=== PATIENT | male | born 1980 | race Caucasian/White ===

== ENCOUNTER 2020-04-18 08:07 | Outpatient (REF) | payer OTHER, SELFPAY ==
[2020-04-18 08:50] LABS: MANUAL DIFF FLAG NO
[2020-04-18 08:57] LABS: Basophils Absolute Auto 0.1 X10*3/uL (0.0-0.2); Basophils Percent Auto 0.6 % (0-2); Eosinophils Absolute Auto 0.4 X10*3/uL (0.0-0.4); Hematocrit 45.7 % (42-52); Hemoglobin 15.8 g/dl (14.0-18.0); Imm Gran Abs Auto 0.04 X10*3/uL (0.00-0.03); Imm Gran Pct Auto 0.5 % (0.0-0.4); Lymphocytes Absolute Auto 3.4 X10*3/uL (1.2-4.9); Lymphocytes Percent Auto 40.9 % (20-40); Mean Corpuscular HGB Conc 34.6 g/dl (31.0-36.0); Mean Corpuscular Hemoglobin 29.6 pg (27.0-33.0); Mean Corpuscular Volume 85.6 fL (80-98); Mean Platelet Volume 8.5 fL (9.4-12.4); Monocytes Absolute Auto 0.8 X10*3/uL (0.1-1.2); Monocytes Percent Auto 9.5 % (2-11); Neutrophils Absolute Auto 3.6 X10*3/uL (2.0-8.3); Neutrophils Percent Auto 43.5 % (45-73); Platelet Count 225 X10*3/uL (160-400); Red Blood Count 5.34 X10*6/uL (4.60-5.80); Red Cell Distribution Width 12.6 % (11.0-16.0); White Blood Count 8.2 X10*3/uL (4.8-10.8)
[2020-04-18 09:05] LABS: Estimated Average Glucose 100 mg/dL; Hemoglobin A1c % 5.1 %
[2020-04-18 09:23] LABS: Alanine Aminotransferase 61 U/L (0-40); Albumin Level 4.5 g/dL (3.5-5.0); Alkaline Phosphatase 53 U/L (39-117); Anion Gap 12 (12-20); Aspartate Amino Transferase 29 U/L (5-37); Bilirubin Total 0.4 mg/dL (0.0-1.0); Blood Urea Nitrogen 11 mg/dL (9-16); Carbon Dioxide 27 mmol/L (22-29); Chloride 104 mmol/L (96-108); Cholesterol 169 mg/dL; Estimated Glomerular Filt Rate > 60; Glucose Random 103 mg/dL (60-115); HDL Cholesterol 40 mg/dL; LDL Cholesterol Calculated 110 mg/dl; Potassium 4.1 mmol/l (3.3-5.1); Sodium 139 mmol/L (135-145); Total Protein 7.2 g/dL (6.5-8.0); Triglycerides 95 mg/dL
[2020-04-18 09:36] LABS: Free T4 (Free Thyroxine) 0.77 ng/dL (0.71-1.85)
[2020-04-18 10:21] LABS: Vitamin B12 414 pg/mL (200-900)
[2020-04-19 05:03] LABS: SARS COV2 IgG Negative (Negative)
== END 2020-04-18 08:08 | disposition home or self-care (01) ==
LOC: HO.LAB 08:07
PROVIDERS: PCP Internal Medicine; Visit Provider Internal Medicine
DX: Z20.828 Contact with and (suspected) exposure to other viral communicable diseases (principal); E66.9 Obesity, unspecified; E78.00 Pure hypercholesterolemia, unspecified
CPT/HCPCS: 36415; 80053; 80061; 82607; 82746; 83036; 84439; 84443; 85025; 86769

== ENCOUNTER 2020-11-22 10:37 | Outpatient (REF) | payer OTHER, SELFPAY ==
--- NOTE | ~2020-11-22 | XR_ITS ---
EXAMINATION: BILATERAL HAND. CLINICAL INFORMATION: Pain. COMPARISON: None TECHNIQUE: 3 views each hand. FINDINGS: Right hand: There is loss of PIP in the AP joint space. The MCP joint space is normal. No visible acute fracture, dislocation or subluxation seen. No bony erosive changes. The soft tissues are normal. Left hand: There is loss of PIP in the epidural space without bony erosive changes or spurring. The MCP joint space is maintained. No visible acute fracture, dislocation or lytic process seen. XR/XR hand LT 2V IMPRESSION: Early mild degenerative changes PIP and DIP joints.
--- NOTE | ~2020-11-22 | XR_ITS ---
EXAMINATION: XR ELBOW, RIGHT XR ELBOW, LEFT CLINICAL INFORMATION: M25.529 - Pain in unspecified elbow COMPARISON: None TECHNIQUE: Each elbow is imaged in 3 views. There are total of 6 views. FINDINGS: Both elbows show normal bony mineralization. There is no fracture, dislocation, destructive process, or elbow capsular effusion. No joint narrowing or erosive change or chondrocalcinosis. There is no olecranon spurring or definite epicondylar spurring. XR/XR elbow RT 2V IMPRESSION: Normal study.
--- NOTE | ~2020-11-22 | XR_ITS ---
EXAMINATION: XR ELBOW, RIGHT XR ELBOW, LEFT CLINICAL INFORMATION: M25.529 - Pain in unspecified elbow COMPARISON: None TECHNIQUE: Each elbow is imaged in 3 views. There are total of 6 views. FINDINGS: Both elbows show normal bony mineralization. There is no fracture, dislocation, destructive process, or elbow capsular effusion. No joint narrowing or erosive change or chondrocalcinosis. There is no olecranon spurring or definite epicondylar spurring. XR/XR elbow LT 2V IMPRESSION: Normal study.
--- NOTE | ~2020-11-22 | XR_ITS ---
EXAMINATION: BILATERAL HAND. CLINICAL INFORMATION: Pain. COMPARISON: None TECHNIQUE: 3 views each hand. FINDINGS: Right hand: There is loss of PIP in the AP joint space. The MCP joint space is normal. No visible acute fracture, dislocation or subluxation seen. No bony erosive changes. The soft tissues are normal. Left hand: There is loss of PIP in the epidural space without bony erosive changes or spurring. The MCP joint space is maintained. No visible acute fracture, dislocation or lytic process seen. XR/XR hand RT 2V IMPRESSION: Early mild degenerative changes PIP and DIP joints.
[2020-11-22 11:43] LABS: MANUAL DIFF FLAG NO
[2020-11-22 11:49] LABS: Basophils Percent Auto 0.7 % (0-2); Eosinophils Absolute Auto 0.4 X10*3/uL (0.0-0.4); Eosinophils Percent Auto 6.6 % (0-4); Hematocrit 46.1 % (42-52); Hemoglobin 15.7 g/dl (14.0-18.0); Imm Gran Abs Auto 0.02 X10*3/uL (0.00-0.03); Imm Gran Pct Auto 0.3 % (0.0-0.4); Lymphocytes Absolute Auto 2.4 X10*3/uL (1.2-4.9); Lymphocytes Percent Auto 39.4 % (20-40); Mean Corpuscular HGB Conc 34.1 g/dl (31.0-36.0); Mean Corpuscular Hemoglobin 28.6 pg (27.0-33.0); Mean Platelet Volume 8.9 fL (9.4-12.4); Monocytes Absolute Auto 0.6 X10*3/uL (0.1-1.2); Neutrophils Absolute Auto 2.7 X10*3/uL (2.0-8.3); Platelet Count 234 X10*3/uL (160-400); Red Blood Count 5.49 X10*6/uL (4.60-5.80); Red Cell Distribution Width 12.7 % (11.0-16.0); White Blood Count 6.1 X10*3/uL (4.8-10.8)
[2020-11-22 11:59] LABS: Estimated Average Glucose 103 mg/dL; Hemoglobin A1c % 5.2 %
[2020-11-22 12:22] LABS: Alanine Aminotransferase 93 U/L (0-40); Albumin Level 4.6 g/dL (3.5-5.0); Alkaline Phosphatase 56 U/L (39-117); Anion Gap 13 (12-20); Aspartate Amino Transferase 44 U/L (5-37); Bilirubin Total 0.4 mg/dL (0.0-1.0); Blood Urea Nitrogen 11 mg/dL (9-16); Calcium 9.5 mg/dL (8.4-10.2); Carbon Dioxide 27 mmol/L (22-29); Chloride 104 mmol/L (96-108); Estimated Glomerular Filt Rate > 60; Glucose Random 90 mg/dL (60-115); Potassium 4.5 mmol/L (3.3-5.1); Sodium 139 mmol/L (135-145); Total Protein 7.4 g/dL (6.5-8.0)
[2020-11-22 12:28] LABS: Erythrocyte Sedimentation Rate 2 MM/HR (0-15)
[2020-11-25 14:21] LABS: Anti Nuclear Antibody Screen NEGATIVE (NEGATIVE)
== END 2020-11-22 10:38 | disposition home or self-care (01) ==
LOC: HO.LAB 10:37
PROVIDERS: PCP Internal Medicine; Visit Provider Internal Medicine
DX: M25.522 Pain in left elbow (principal); M25.521 Pain in right elbow; M79.642 Pain in left hand; M79.641 Pain in right hand; R79.89 Other specified abnormal findings of blood chemistry
CPT/HCPCS: 36415; 73070; 73120; 80053; 83036; 85025; 85652; 86038; 86039

== ENCOUNTER 2022-04-08 10:47 | Outpatient (REF) | payer OTHER, SELFPAY ==
[2022-04-08 11:40] LABS: Hematocrit 41.8 % (42.0-52.0); Hemoglobin 14.4 g/dl (14.0-18.0); Mean Corpuscular HGB Conc 34.4 g/dl (31.0-36.0); Mean Corpuscular Hemoglobin 29.4 pg (27.0-33.0); Mean Corpuscular Volume 85.3 fL (80.0-98.0); Mean Platelet Volume 8.9 fL (9.4-12.4); Platelet Count 226 X10*3/uL (160-400); Red Cell Distribution Width 12.7 % (11.0-16.0)
[2022-04-08 13:54] LABS: Creatinine Urine 169.43 mg/dL; Microalbum/Creatinine Ratio Ur 13.5 ug/mg cr
[2022-04-08 14:14] LABS: Estimated Average Glucose 105 mg/dL; Hemoglobin A1C 151.1252 umol/L; Hemoglobin A1c % 5.3 %
[2022-04-08 14:49] LABS: Alanine Aminotransferase 61 U/L (0-40); Albumin Level 4.3 g/dL (3.5-5.0); Alkaline Phosphatase 54 U/L (39-117); Anion Gap 11 (12-20); Aspartate Amino Transferase 35 U/L (5-37); Bilirubin Total 0.5 mg/dL (0.0-1.0); Blood Urea Nitrogen 15 mg/dL (9-16); Calcium 9.3 mg/dL (8.4-10.2); Carbon Dioxide 30 mmol/L (22-29); Chloride 107 mmol/L (96-108); Cholesterol 151 mg/dL; Estimated Glomerular Filt Rate > 60; Glucose Fasting 78 mg/dL (60-99); HDL Cholesterol 34 mg/dL; LDL Cholesterol Calculated 92 mg/dl; Potassium 4.3 mmol/L (3.3-5.1); Sodium 144 mmol/L (135-145); TSH reflex Free T4 0.84 uIU/mL (0.32-4.0); Total Protein 6.6 g/dL (6.5-8.0); Triglycerides 129 mg/dL
== END 2022-04-08 10:48 | disposition home or self-care (01) ==
LOC: HO.LAB 10:47
PROVIDERS: PCP Physician Assistant; Visit Provider Physician Assistant
DX: E66.9 Obesity, unspecified (principal); I10 Essential (primary) hypertension; R73.02 Impaired glucose tolerance (oral)
CPT/HCPCS: 36415; 80053; 80061; 82043; 83036; 84443; 85027

== ENCOUNTER → 2022-09-18 08:59 | Outpatient (BNVA) | payer OTHER, SELFPAY | PROVIDERS: PCP Physician Assistant; Visit Provider Internal Medicine ==

== ENCOUNTER → 2022-10-01 09:04 | Outpatient (REF) | payer OTHER, SELFPAY | LOC: HO.SL 09:04 | PROVIDERS: Visit Provider Internal Medicine | DX: G47.33 Obstructive sleep apnea (adult) (pediatric) (principal); E66.01 Morbid (severe) obesity due to excess calories; R40.0 Somnolence | CPT/HCPCS: 95806 ==

== ENCOUNTER 2022-10-06 08:29 | Outpatient (REF) | payer OTHER, SELFPAY ==
--- NOTE | 2022-10-06 09:25 | PFT_ITS ---
INDICATION: Asthma. SPIROMETRY: FEV1 to FVC of 72% with an FEV1 of 4.08 L, which is 101% predicted. FVC of 5.63 L, which is 110% predicted. No significant response to bronchodilators noted. Maximum voluntary ventilation 102% predicted. LUNG VOLUMES: 103% predicted. DIFFUSION CAPACITY: DLCO 122% predicted. FLOW VOLUME LOOP: There is some slight concavity to the expiratory limb minimally noted. COMPARISON: None. INTERPRETATION: No definitive obstructive nor restrictive ventilatory defects noted. No significant response to bronchodilator is noted. However, based on his age and his load, FEV1 to FVC and his expiratory limb demonstrates some slight concavity. There is a slight obstructive physiology present. Lung volumes are within normal limits. His diffusion capacity is high normal. Need to consider exogenous carbon monoxide exposures. Clinical correlation warranted. Dave Phillips MD MR/MODL / [id number]
== END 2022-10-06 08:30 | disposition home or self-care (01) ==
LOC: HO.RESP 08:29
PROVIDERS: PCP Physician Assistant; Visit Provider Internal Medicine
DX: E66.01 Morbid (severe) obesity due to excess calories (principal); J45.909 Unspecified asthma, uncomplicated
CPT/HCPCS: 94060; 94727; 94729

== ENCOUNTER 2022-11-26 09:18 | Outpatient (AMB) | payer OTHER, SELFPAY ==
--- NOTE | 2022-11-26 09:19 | MHC.OFFVIS ---
Intake Vital Signs 11/26/22 09:20 Height 5 ft 9 in Weight 281 lb 1.43 oz BMI 41.5 BP 142/78 H Blood Pressure Location Rt brachial Position Sitting Pulse 75 Pulse Source Pulse Oximeter Pulse Oximetry (%) 98 Oxygen Delivery Method Room Air Intake Visit Reasons: KRYSTIAN/Asthma Intake Note: Pt presents today to discuss his at home sleep study but overall is doing well. Allergies levofloxacin [From LEVAQUIN] Allergy (Mild, Verified 11/26/22 09:43) HIVES egg Allergy (Unknown, Verified 11/26/22 09:43) Unknown seafood Allergy (Unknown, Verified 11/26/22 09:43) Unknown amlodipine Adverse Reaction (Intermediate, Verified 11/26/22 09:43) ineffective Medication List - Last Reconciled 11/26/22 by Rj Gentile MD albuterol sulfate 90 mcg/actuation (Ventolin HFA) 2 puffs inhalation Q4-6H PRN 30 days albuterol sulfate 2.5 mg (3 mL) continuous nebulization Q4-6H PRN escitalopram oxalate (Lexapro) 5 mg PO DAILY fluticasone propion-salmeterol 250-50 mcg/dose (Wixela Inhub) 1 inh inhalation BID 30 days fluticasone propionate 50 mcg/actuation 2 sprays intranasal DAILY ibuprofen 800 mg PO TID lisinopril 30 mg PO DAILY 90 days montelukast 10 mg PO DAILY Do you need a note to return to daycare/school/sports/work: No HPI KRYSTIAN/Asthma HPI Details 43 years old gentleman morbidly obese, with longstanding history of sleep apnea/snoring, and bronchial asthma, comes for follow-up. Asthma doing very well and he hardly needs to use the albuterol maybe once or twice a month. Continues to use maintenance regimen, but using Wixela only once a day. He states that if he goes of this completely he starts having increased wheezing and shortness of breath. He thinks taking montelukast 10 mg daily has helped. As far as sleep is concerned he still continue to use his old CPAP device. But he is not. Sure if it is helping at all He states that on some days when he does not use he wakes up with headache. He has no control on his diet, he does walk 1-2 miles daily, but has not been able to lose any weight. [facility] Medical History Anemia Anxiety Asthma Desensitization to allergy shot Fatty liver Morbid obesity Obesity (BMI 30-39.9) Obstructive sleep apnea Somnolence, daytime Surgical History History of vasectomy Family History Father Hypertension Hyperlipidemia Mother No problems noted. Maternal Grandmother Myocardial infarction Maternal Grandfather Testicular cancer Paternal Grandmother Pancreatic cancer Paternal Grandfather Colon cancer Paternal Aunt Colon cancer Brother Bipolar disorder Other Mental health disorder Social History Housing: House Alcohol intake: former Year quit: 2021 Patient Tobacco Use Status: Never used Tobacco Years Smoked: teenage stopped e-Cigarette/Vaping Use: Never Used Second Hand Smoke Exposure: No service: No Current occupational status: employed Cognitive needs: No Hearing needs: No Vision needs: No Review of Systems Const All systems reviewed & are unremarkable except as noted in HPI and below Reports headache(s) (In AMs) Eyes Reports no additional complaints ENT Reports no additional complaints and Reports headache(s) (In AMs) Card Denies chest pain, Denies irregular heart rhythm and Denies leg edema Resp Reports as per HPI GI Denies no additional complaints Reports no additional complaints Musc Reports no additional complaints Neuro Reports headache(s) (In AMs) Psych Reports depression (Mild controlled) Physical Exam Vital Signs: Last Vital Signs Pulse 75 11/26/22 09:20 BP 142/78 H 11/26/22 09:20 Pulse Ox 98 11/26/22 09:20 Oxygen Delivery Method Room Air 11/26/22 09:20 BMI result Body Mass Index 41.5 This patient is grossly obese with a round face. Const General: healthy appearing (Except for being overweight), comfortable, no acute distress, alert and awake Orientation/consciousness: patient oriented x3 HEENT Head: Yes normal to inspection General nose exam: No nasal polyps present and No nasal discharge present Face and sinus: Yes sinuses nontender Mouth: oropharynx abnormals (Narrow and crowded, Mallampati class 3) Throat: Yes posterior oropharynx normal Eyes General: appearance normal, both eyes and all related structures Neck Neck: Yes normal visual inspection, Yes no lymphadenopathy, Yes trachea midline, Yes no JVD and Yes other (Neck circumference 18 in) Thyroid: Thyroid normal Chest Chest palpation & inspection: normal inspection of the chest, normal palpation of entire chest wall and no tenderness Resp Effort & Inspection: normal respiratory effort Auscultation: clear to auscultation bilaterally, no crackles, no rhonchi and no wheezes Cardio Palpation: normal PMI Rate: regular rate Rhythm: regular rhythm Heart sounds: no gallops and no murmurs Peripheral pulses: Peripheral pulses 2+ throughout GI Palpation (GI): Soft to palpation, nontender, No hepatosplenomegaly present, no masses and Other GI palpation findings present (Abdomen is moderately obese and protuberant) Auscultation: normal bowel sounds Back/Spine/Pelvis Thoracic/Lumbar Spine: thoracic and lumbar spine normal to inspection Skin General skin exam: no rashes or lesions noted Neuro General: patient oriented x3 and no focal motor deficits Cranial nerves: Yes CN's II-XII intact bilaterally Extrem General: Yes normal to inspection, Yes no clubbing, cyanosis or edema and Yes no calf tenderness Psych Appearance: grossly normal and well kempt Speech and movement: Normal speech and movement present Results Reviewed Results Reviewed: PULMONARY FUNCTION TEST BAS 18% OF THE SLEEP TIME ICALLY NORMAL AND THERE WAS NO SIGNIFICANT OBSTRUCTIVE OR RESTRICTIVE PATTERN. HOME-BASED SLEEP STUDY ON 10/01/2022 SHOWS ONLY MILD DEGREE OF OBSTRUCTIVE SLEEP APNEA TOTAL SLEEP TIME AHI ONLY 5.3, IN SUPINE POSITION 12.8, SNORING IS FOR Assessment & Plan Assessment & Plan (1) Asthma: Comment: He has longstanding history of bronchial asthma, Has had allergy shots in the past. Bronchial asthma is mild with seasonal flare ups. RESULTS OF PULMONARY FUNCTION TEST ARE EXPLAINED TO HIM. TX: Montelukast 10 mg daily to continue. Wixela 250-50 use only ones inhalation daily . When symptoms are controlled may try to go off that. Albuterol HFA 2 puffs Q 4-6 hours only p.r.n.. Code(s): J45.909 - Unspecified asthma, uncomplicated Qualifiers: Asthma severity: mild Asthma persistence: intermittent Asthma complication type: uncomplicated Qualified Code(s): J45.20 - Mild intermittent asthma, uncomplicated (2) Obstructive sleep apnea: Comment: As per sleep study his obstructive sleep apnea at present is only very mild, especially in supine position. With these numbers, I think he should try his best to treat with conservative measures. Explained to him in detail. A: I STRESS THAT HE MUST LOSE WEIGHT AT LEAST 10% OF HIS CURRENT WEIGHT, WHICH IS ABOUT 28-30 LB. HE TELLS ME THAT HE IS JOINING A WEIGHT MANAGEMENT PROGRAM. B: POSITION THERAPY, AVOID SLEEPING IN SUPINE POSITION, MAY USE A PILLOW ARE A WEDGE IN THE MIDDLE OF THE BED. I EXPLAINED TO HIM THAT HE REALLY CAN DO WITHOUT USING THE CPAP MACHINE AT THIS TIME. WILL RECHECK HIM IN 3 MONTHS. IF HE REMAINS SYMPTOMATIC , IN SPITE OF LOSING WEIGHT, THEN WE CAN DEFINITELY CONSIDER GOING BACK TO CPAP THERAPY. Code(s): G47.33 - Obstructive sleep apnea (adult) (pediatric) (3) Morbid obesity: Comment: SEE UNDER KRYSTIAN. Code(s): E66.01 - Morbid (severe) obesity due to excess calories Coding Level of Care Code Est Pt Level 3 (00990) Diagnoses Asthma J45.20 Asthma severity: mild Asthma persistence: intermittent Asthma complication type: uncomplicated Obstructive sleep apnea G47.33 Morbid obesity E66.01
[2022-11-26 09:20] VITALS: BP 142/78; PULSE 75; O2SAT 98; BMI 41.5
== END 2022-11-26 09:43 | disposition home or self-care (01) ==
PROVIDERS: PCP Physician Assistant; Visit Provider Internal Medicine
DX: J45.20 Mild intermittent asthma, uncomplicated (principal); G47.33 Obstructive sleep apnea (adult) (pediatric); E66.01 Morbid (severe) obesity due to excess calories
CPT/HCPCS: 99213

== ENCOUNTER → 2022-11-26 09:18 | Outpatient (BNVA) | payer OTHER, SELFPAY | PROVIDERS: PCP Physician Assistant; Visit Provider Internal Medicine ==

== ENCOUNTER 2022-12-11 08:27 | Outpatient (AMB) | payer OTHER, SELFPAY ==
[2022-12-11 08:30] VITALS: BP 130/68; PULSE 75; O2SAT 98; BMI 40.3
--- NOTE | 2022-12-11 08:30 | A.OFFPC_ITS ---
Vital Signs 12/11/22 08:30 12/11/22 08:51 Height 5 ft 9 in Weight 273 lb BMI 40.3 BP 130/68 140/100 H Blood Pressure Location Lt brachial Position Sitting Pulse 75 Pulse Source Pulse Oximeter Pulse Oximetry (%) 98 Oxygen Delivery Method Room Air Intake Visit Reasons: f/u HTN Allergies levofloxacin [From LEVAQUIN] Allergy (Mild, Verified 12/11/22 08:41) HIVES egg Allergy (Unknown, Verified 12/11/22 08:41) Unknown seafood Allergy (Unknown, Verified 12/11/22 08:41) Unknown amlodipine Adverse Reaction (Intermediate, Verified 12/11/22 08:41) ineffective Medication List - Last Reconciled 12/11/22 by Joe Mendieta PA-C albuterol sulfate 90 mcg/actuation (Ventolin HFA) 2 puffs inhalation Q4-6H PRN 30 days albuterol sulfate 2.5 mg (3 mL) continuous nebulization Q4-6H PRN escitalopram oxalate (Lexapro) 5 mg PO DAILY fluticasone propion-salmeterol 250-50 mcg/dose (Wixela Inhub) 1 inh inhalation BID 30 days fluticasone propionate 50 mcg/actuation 2 sprays intranasal DAILY ibuprofen 800 mg PO TID lisinopril 30 mg PO DAILY 90 days montelukast 10 mg PO DAILY semaglutide (Ozempic) 0.25 mg subcut QWEEK Tobacco use date assessed: 09/09/22 Dental Screening Dental Screen Date: 12/11/22 Did you have a dental visit in the last 12 months?: Yes Did you have a dental problem in the last 6 months where you did not have access to dental care?: No Was dental information given to patient?: Patient has dentist HPI f/u HTN HPI Details Patient is a 41-year-old male here today for annual physical?. T patient has a past medical history significant for obesity, impaired glucose metabolism, moderate persistent asthma, KRYSTIAN. HTN:? Continues on lisinopril 30 mg though reports his home blood pressures average around 145 systolic. He otherwise denies any headaches, chest pain or shortness of breath on exertion.? ? Was on hydrochlorothiazide as well though was experiencing orthostatic hypertension.. Amlodipine has been ineffective for him.? He had trialed being off of Adderall though did not noticed a difference in his blood pressure. PLAN: Will work on weight reduction and low-sodium diet. Will continue his lisinopril 30 at this time and continue monitoring blood pressure. .. Obesity:? He is followed by weight management program and started on Ozempic weekly injections. Has lost weight since last office visit. Patient does understand his BMI is over 30 will work on being more physically active and adapting to better eating habits to reduce his weight. .. Obstructive sleep apnea:? Has a history of obstructive sleep apnea was on CPAP machine about 15 years ago.? Continues to use CPAP machine on a nightly basis.? Has upcoming appointment with pulmonology for evaluation of his obstructive sleep apnea and asthma. [facility] Medical History Anemia Anxiety Asthma Desensitization to allergy shot Fatty liver Morbid obesity Obesity (BMI 30-39.9) Obstructive sleep apnea Somnolence, daytime Surgical History History of vasectomy Family History Father Hypertension Hyperlipidemia Mother No problems noted. Maternal Grandmother Myocardial infarction Maternal Grandfather Testicular cancer Paternal Grandmother Pancreatic cancer Paternal Grandfather Colon cancer Paternal Aunt Colon cancer Brother Bipolar disorder Other Mental health disorder Social History Housing: House Alcohol intake: former Year quit: 2021 Patient Tobacco Use Status: Never used Tobacco Years Smoked: teenage stopped e-Cigarette/Vaping Use: Never Used Second Hand Smoke Exposure: No service: No Current occupational status: employed Cognitive needs: No Hearing needs: No Vision needs: No Questionnaire PHQ-9 Over the last 2 weeks, how often have you been bothered by any of the following problems? 1. Little interest or pleasure in doing things: not at all 2. Feeling down, depressed, or hopeless: not at all 3. Trouble falling or staying asleep, or sleeping too much: not at all 4. Feeling tired or having little energy: not at all 5. Poor appetite or overeating: not at all 6. Feeling bad about yourself - or that you are a failure or have let yourself or your family down: not at all 7. Trouble concentrating on things, such as reading the newspaper or watching television: not at all 8. Moving or speaking so slowly that other people could have noticed. Or the opposite - being so fidgety or restless that you have been moving around a lot more than usual: not at all 9. Thoughts that you would be better off or of hurting yourself in some way: not at all Total score: 0 Depression Screening Interpretation: Negative 30555 - PHQ-9 Billing: Yes Source: Developed by Drs. Miquel Regan, Gloria Castle, Lex Coello and colleagues, with an educational cheo from [employer]. Thrive Questionnaire Date Thrive assessed: 09/09/22 AUDIT C Alcohol Use Questionnaire (AUDIT-C) 1. How often do you have a drink containing alcohol?: Monthly or less 2. How many drinks containing alcohol do you have on a typical day when you are drinking?: 1 or 2 Total Score: 1 MO-7 AMB Questionnaire MO-7 Date MO - 7 assessed: 09/09/22 Source: Developed by Drs. Miquel Regan, Gloria Castle, Lex Coello and colleagues, with an educational cheo from [employer]. ACT Questionnaire In the past 4 weeks, how much of the time did your asthma keep you from getting as much done at work, school or at home?: None of the time During the past 4 weeks, how often have you had shortness of breath?: Not at all During the past 4 weeks, how often did your asthma symptoms wake you up at night or earlier than usual in the morning?: Not at all During the past 4 weeks, how often have you had to use your rescue inhaler or nebulizer medication?: Not at all How would you rate your asthma control during the past 4 weeks?: Completely controlled ACT Interpretation: Negative Score: 25 Review of Systems Const Denies headache(s) Eyes Denies loss of vision ENT Denies vertigo, Denies dizziness, Denies headache(s) and Denies sore throat Card Denies chest pain, Denies leg edema and Denies lightheadedness Resp Denies cough, Denies hemoptysis and Denies wheezing GI Denies abdominal pain, Denies melena, Denies constipation, Denies diarrhea and Denies vomiting Denies dysuria, Denies urinary frequency and Denies urinary urgency Musc Denies arthralgias, Denies joint swelling, Denies numbness and Denies tingling Neuro Denies Abnormal speech present, Denies behavioral changes, Denies vertigo, Denies dizziness, Denies headache(s), Denies loss of vision, Denies memory loss, Denies numbness and Denies tingling Psych Denies anxiety, Denies behavioral changes, Denies depression, Denies memory loss and Denies panic attacks Christian/Lymph Denies easy bleeding and Denies easy bruising Aller/Immun Denies wheezing Physical exam (Primary Care) Vital Signs: Last Vital Signs Pulse 75 12/11/22 08:30 BP 140/100 H 12/11/22 08:51 Pulse Ox 98 12/11/22 08:30 Oxygen Delivery Method Room Air 12/11/22 08:30 BMI result Body Mass Index 40.3 BMI Assessment/Plan discussion: High Tobacco/Smoking Status: Tobacco use Status Tobacco use date assessed 09/09/22 12/11/22 08:35 Patient Tobacco Use Status Never used Tobacco 12/11/22 08:35 e-Cigarette/Vaping Use Never Used 12/11/22 08:35 PHQ-9: PHQ-9 Score PHQ-9: Total score 0 12/11/22 08:44 Depression Screening Interpretation: Negative Thrive Assessment: Date of Thrive Assessment Date Thrive assessed 09/09/22 12/11/22 08:35 Const Other: OBESE General: healthy appearing, no acute distress, alert and awake Nutritional Appearance: well nourished Orientation/consciousness: oriented to person, oriented to place and oriented to time HENMT Ears: TM's normal bilaterally General nose exam: Normal nasal mucous membranes and turbinates present Eyes Conjunctivae: conjunctivae normal Sclerae: sclerae normal Pupils: Equal, round and reactive pupils present Neck Neck: Yes no lymphadenopathy and Yes no JVD Thyroid: Thyroid normal Carotids: no bruits Resp Effort & Inspection: normal respiratory effort and not tachypneic Auscultation: no crackles, no rales, no rhonchi and no wheezes Cardio Rate: regular rate Rhythm: regular rhythm Heart sounds: no murmurs and normal S1 and S2 GI Palpation (GI): Soft to palpation, nontender, no hepatomegaly and no splenomegaly Auscultation: normal bowel sounds Skin General skin exam: no rashes or lesions noted and dry skin Neuro General: oriented to person, oriented to place and oriented to time Cranial nerves: Yes Equal, round and reactive pupils present Speech: No Abnormal speech present Gait exam (Neuro): Normal gait present Motor exam (neuro): no tremor noted Extrem Right upper extremity: full ROM Left upper extremity: full ROM Right lower extremity: full ROM; no edema Left lower extremity: full ROM; no edema Psych Mental Status: mental status grossly normal Speech and movement: Normal speech and movement present Affect: normal affect Attitude: cooperative Thought process: Normal thought process present Assessment and Plan Assessment & Plan (1) HTN (hypertension): Code(s): I10 - Essential (primary) hypertension Qualifiers: Hypertension type: primary hypertension Qualified Code(s): I10 - Essential (primary) hypertension Plan: Patient's blood pressure is still slightly elevated even with the use of lisinopril 30 mg. We did discuss the possibility of increasing to maximal dose of 40 mg though patient would like to hold off and continue working hard on lifestyle modifications. Has started a new weight loss med and anticipates somewhat weight loss. Will give a 3 -4 month trial period on lifestyle modifications and continue lisinopril 30. (2) Obese: Code(s): E66.9 - Obesity, unspecified Qualifiers: Body mass index: BMI 40.0-44.9 Obesity classification: adult class 3 (BMI >= 40) Obesity type: due to excess calories Serious obesity comorbidity presence: without serious comorbidity Qualified Code(s): E66.01 - Morbid (severe) obesity due to excess calories; Z68.41 - Body mass index [BMI] 40.0- 44.9, adult; Z68.41 - Body mass index [BMI] 40.0-44.9, adult Plan: As above (3) Asthma: Comment: He has longstanding history of bronchial asthma, Has had allergy shots in the past. Bronchial asthma is mild with seasonal flare ups. RESULTS OF PULMONARY FUNCTION TEST ARE EXPLAINED TO HIM. TX: Montelukast 10 mg daily to continue. Wixela 250-50 use only ones inhalation daily . When symptoms are controlled may try to go off that. Albuterol HFA 2 puffs Q 4-6 hours only p.r.n.. Code(s): J45.909 - Unspecified asthma, uncomplicated Qualifiers: Asthma complication type: uncomplicated Asthma persistence: intermittent Asthma severity: mild Qualified Code(s): J45.20 - Mild intermittent asthma, uncomplicated Plan: Asthma has been fairly well stable with current use of a maintenance inhaler and albuterol use on a p.r.n. basis. No recent exacerbations noted. Coding Level of Care Code Est Pt Level 4 (08416) Diagnoses HTN (hypertension) I10 Hypertension type: primary hypertension Obese E66.01; Z68.41; Z68.41 Body mass index: BMI 40.0-44.9 Obesity classification: adult class 3 (BMI >= 40) Obesity type: due to excess calories Serious obesity comorbidity presence: without serious comorbidity Asthma J45.20 Asthma complication type: uncomplicated Asthma persistence: intermittent Asthma severity: mild
[2022-12-11 08:51] VITALS: BP 140/100
== END 2022-12-11 08:58 | disposition home or self-care (01) ==
PROVIDERS: PCP Physician Assistant; Visit Provider Physician Assistant
DX: I10 Essential (primary) hypertension (principal); E66.01 Morbid (severe) obesity due to excess calories; Z68.41 Body mass index [BMI] 40.0-44.9, adult; J45.20 Mild intermittent asthma, uncomplicated
CPT/HCPCS: 99214

== ENCOUNTER 2023-02-24 09:54 | Outpatient (AMB) | payer OTHER, SELFPAY ==
--- NOTE | 2023-02-24 09:59 | A.OFFVIS_ITS ---
Intake Vital Signs 02/24/23 10:00 Height 5 ft 9 in Weight 284 lb BMI 41.9 BP 132/90 H Blood Pressure Location Lt brachial Position Sitting Pulse 68 Pulse Source Pulse Oximeter Pulse Oximetry (%) 97 Oxygen Delivery Method Room Air Intake Visit Reasons: KRYSTIAN/Asthma Intake Note: pt is here for follow up and states he is not sleeping well,asthma is well controlled. He tried to go without cpap and he constantly waking up. Allergies levofloxacin [From LEVAQUIN] Allergy (Mild, Verified 02/24/23 10:20) HIVES egg Allergy (Unknown, Verified 02/24/23 10:20) Unknown seafood Allergy (Unknown, Verified 02/24/23 10:20) Unknown amlodipine Adverse Reaction (Intermediate, Verified 02/24/23 10:20) ineffective Medication List - Last Reconciled 02/24/23 by Rj Gentile MD albuterol sulfate 90 mcg/actuation (Ventolin HFA) 2 puffs inhalation Q4-6H PRN 30 days albuterol sulfate 2.5 mg (3 mL) continuous nebulization Q4-6H PRN fluticasone propion-salmeterol 250-50 mcg/dose (Wixela Inhub) 1 inh inhalation BID 30 days fluticasone propionate 50 mcg/actuation 2 sprays intranasal DAILY PRN lisinopril 30 mg PO DAILY 90 days montelukast 10 mg PO DAILY naltrexone-bupropion 8-90 mg (Contrave) 2 tabs PO BID Do you need a note to return to daycare/school/sports/work: No HPI KRYSTIAN/Asthma HPI Details 42 years old young gentleman, comes for follow-up after 6 months for his bronchial asthma and allergic rhinitis, as well as for sleep apnea As long as he is using Wixela 1 inhalation b.i.d. and montelukast 10 mg daily, he has no active symptoms of nasal congestion or asthma. If he ever stops these meds for a few days he starts having cough runny nose and wheezing. For sleep apnea, he has about 20 years old CPAP machine which he has to use every night, otherwise he cannot sleep. However machine is old and does not record any compliance data. He also does not know if it is working or not. His sleep study had shown mild degree of sleep apnea, with total sleep time AHI 5.3. However most of his sleep was in supine position with supine AHI 12.8. He is also complaining that his sleep was not that good that night. Overall I think he remains actively symptomatic from his sleep apnea, and does need to continue using the CPAP. His weight management is not succeeding yet. He is on weight reduction meds, . But not able to lose weight His lifestyle is somewhat sedentary as he sits behind the computer whole day, he is not doing any active an aerobic exercises . [facility] Medical History (Updated 02/24/23 @ 10:30 by Rj Gentile MD) Allergic rhinitis Somnolence, daytime Morbid obesity Desensitization to allergy shot Fatty liver Anemia Obesity (BMI 30-39.9) Anxiety Obstructive sleep apnea Asthma Surgical History History of vasectomy Family History Father Hypertension Hyperlipidemia Mother No problems noted. Maternal Grandmother Myocardial infarction Maternal Grandfather Testicular cancer Paternal Grandmother Pancreatic cancer Paternal Grandfather Colon cancer Paternal Aunt Colon cancer Brother Bipolar disorder Other Mental health disorder Social History Housing: House Alcohol intake: former Year quit: 2021 Patient Tobacco Use Status: Never used Tobacco Years Smoked: teenage stopped e-Cigarette/Vaping Use: Never Used Second Hand Smoke Exposure: No service: No Current occupational status: employed Cognitive needs: No Hearing needs: No Vision needs: No Review of Systems Const All systems reviewed & are unremarkable except as noted in HPI and below Reports headache(s) (In AMs) Eyes Reports no additional complaints ENT Reports no additional complaints and Reports headache(s) (In AMs) Card Denies chest pain, Denies irregular heart rhythm and Denies leg edema Resp Reports as per HPI GI Denies no additional complaints Reports no additional complaints Musc Reports no additional complaints Neuro Reports headache(s) (In AMs) Psych Reports depression (Mild controlled) Physical Exam Vital Signs: Last Vital Signs Pulse 68 02/24/23 10:00 BP 132/90 H 02/24/23 10:00 Pulse Ox 97 02/24/23 10:00 Oxygen Delivery Method Room Air 02/24/23 10:00 BMI result Body Mass Index 41.9 This patient is grossly obese with a round face. Const General: healthy appearing (Except for being overweight), comfortable, no acute distress, alert and awake Orientation/consciousness: patient oriented x3 HEENT Head: Yes normal to inspection General nose exam: No nasal polyps present and No nasal discharge present Face and sinus: Yes sinuses nontender Mouth: oropharynx abnormals (Narrow and crowded, Mallampati class 3) Throat: Yes posterior oropharynx normal Eyes General: appearance normal, both eyes and all related structures Neck Neck: Yes normal visual inspection, Yes no lymphadenopathy, Yes trachea midline, Yes no JVD and Yes other (Neck circumference 18 in) Thyroid: Thyroid normal Chest Chest palpation & inspection: normal inspection of the chest, normal palpation of entire chest wall and no tenderness Resp Effort & Inspection: normal respiratory effort Auscultation: clear to auscultation bilaterally, no crackles, no rhonchi and no wheezes Cardio Palpation: normal PMI Rate: regular rate Rhythm: regular rhythm Heart sounds: no gallops and no murmurs Peripheral pulses: Peripheral pulses 2+ throughout GI Palpation (GI): Soft to palpation, nontender, No hepatosplenomegaly present, no masses and Other GI palpation findings present (Abdomen is moderately obese and protuberant) Auscultation: normal bowel sounds Back/Spine/Pelvis Thoracic/Lumbar Spine: thoracic and lumbar spine normal to inspection Skin General skin exam: no rashes or lesions noted Neuro General: patient oriented x3 and no focal motor deficits Cranial nerves: Yes CN's II-XII intact bilaterally Extrem General: Yes normal to inspection, Yes no clubbing, cyanosis or edema and Yes no calf tenderness Psych Appearance: grossly normal and well kempt Speech and movement: Normal speech and movement present Assessment & Plan Assessment & Plan (1) Asthma: Comment: He has longstanding history of bronchial asthma, Has had allergy shots in the past. Bronchial asthma is mild with seasonal flare ups. RESULTS OF PULMONARY FUNCTION TEST ARE EXPLAINED TO HIM. TX: Montelukast 10 mg daily to continue. Wixela 250-50 use only ones inhalation daily . When symptoms are controlled may try to go off that. Albuterol HFA 2 puffs Q 4-6 hours only p.r.n.. Code(s): J45.909 - Unspecified asthma, uncomplicated Qualifiers: Asthma complication type: uncomplicated Asthma persistence: intermittent Asthma severity: mild Qualified Code(s): J45.20 - Mild intermit tent asthma, uncomplicated (2) Allergic rhinitis: Comment: Is the us nasal symptoms remain under control as long as he uses montelukast 10 mg daily. Also Flonase 50 mcg 2 sprays in each nostril daily. Code(s): J30.9 - Allergic rhinitis, unspecified (3) Morbid obesity: Comment: BMI= 41.9 . He is trying to lose weight with dietary restrictions and meds, but not succeeding so for. Code(s): E66.01 - Morbid (severe) obesity due to excess calories (4) Obstructive sleep apnea: Comment: Has a longstanding history of obstructive sleep apnea, and has use CPAP for about 20 years. His current CPAP device is about 20 years old and not functioning well. HOME-BASED SLEEP STUDY IN SEPTEMBER 2022 HE DID SHOW MILD OBSTRUCTIVE SLEEP APNEA WITH TOTAL SLEEP TIME, AHI 5.3 AND SUPINE AHI 12.8. HE WAS INSTRUCTED TO . TRY CONSERVATIVE MEASURES BUT HE REMAINS VERY SYMPTOMATIC AND IS NOT ABLE TO SLEEP WITHOUT THE CPAP. HE STATES THAT HIS SYMPTOMS ARE ACTUALLY WORSE THAN IT WAS SHOWN IN THE SLEEP STUDY. CONSIDERING THAT HE REMAINS MORBIDLY OBESE, AND SYMPTOMATIC, I THINK HE WILL NEED TO CONTINUE CPAP DEVICE. I A.M. GOING TO ORDER A NEW CPAP DEVICE FOR HIM, WITH AUTO PAP MODE AND PRESSURE SETTING OF 6-20 CM . WILL RECHECK HIM IN 2 MONTHS Code(s): G47.33 - Obstructive sleep apnea (adult) (pediatric) (5) Somnolence, daytime: Comment: HAS NOTED ABOVE UNDER KRYSTIAN. HE DOES HAVE CONFIRMED DIAGNOSIS OF KRYSTIAN, IT IS NOT WELL TREATED WITH THE CURRENT CPAP DEVICE AT THIS TIME. HE NEEDS A NEW CPAP DEVICE WITH FULL COMPLIANCE, AND THAT SHOULD DECREASE HIS DAYTIME SOMNOLENCE. Code(s): R40.0 - Somnolence Coding Level of Care Code Est Pt Level 3 (65753) Diagnoses Mild intermittent asthma without complication J45.20 Asthma complication type: uncomplicated Asthma persistence: intermittent Asthma severity: mild Allergic rhinitis J30.9 Morbid obesity E66.01 Obstructive sleep apnea G47.33 Somnolence, daytime R40.0
[2023-02-24 10:00] VITALS: BP 132/90; PULSE 68; O2SAT 97; BMI 41.9
== END 2023-02-24 10:17 | disposition home or self-care (01) ==
PROVIDERS: PCP Physician Assistant; Visit Provider Internal Medicine
DX: J45.20 Mild intermittent asthma, uncomplicated (principal); J30.9 Allergic rhinitis, unspecified; E66.01 Morbid (severe) obesity due to excess calories; G47.33 Obstructive sleep apnea (adult) (pediatric); R40.0 Somnolence
CPT/HCPCS: 99213

== ENCOUNTER → 2023-02-24 09:54 | Outpatient (BNVA) | payer OTHER, SELFPAY | PROVIDERS: PCP Physician Assistant; Visit Provider Internal Medicine ==

== ENCOUNTER 2023-04-08 09:21 | Outpatient (AMB) | payer OTHER, SELFPAY ==
[2023-04-08 09:45] VITALS: BP 142/90; PULSE 70; RESP 17; BMI 41.8
--- NOTE | 2023-04-08 09:45 | A.OFFPC_ITS ---
Vital Signs 04/08/23 09:45 Height 5 ft 9 in Weight 283 lb 2 oz BMI 41.8 BP 142/90 H Blood Pressure Location Lt brachial Position Sitting Respiration 17 Pulse 70 Pulse Source Palpation Intake Visit Reasons: Annual Exam Intake Note: Patient is here today for a physical. 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 Accompanied by: Self / Same As Patient Allergies levofloxacin [From LEVAQUIN] Allergy (Mild, Verified 04/08/23 10:04) HIVES egg Allergy (Unknown, Verified 04/08/23 10:04) Unknown seafood Allergy (Unknown, Verified 04/08/23 10:04) Unknown amlodipine Adverse Reaction (Intermediate, Verified 04/08/23 10:04) ineffective hydrochlorothiazide Adverse Reaction (Intermediate, Verified 04/08/23 10:14) orthostatic hypotension Medication List - Last Reconciled 04/08/23 by Joe Mendieta PA-C albuterol sulfate 90 mcg/actuation (Ventolin HFA) 2 puffs inhalation Q4-6H PRN 30 days albuterol sulfate 2.5 mg (3 mL) continuous nebulization Q4-6H PRN fluticasone propion-salmeterol 250-50 mcg/dose (Wixela Inhub) 1 inh inhalation BID 30 days fluticasone propionate 50 mcg/actuation 2 sprays intranasal DAILY PRN lisinopril 30 mg PO DAILY 90 days montelukast 10 mg PO DAILY Tobacco use date assessed: 09/09/22 Dental Screening Dental Screen Date: 04/08/23 Did you have a dental visit in the last 12 months?: No Did you have a dental problem in the last 6 months where you did not have access to dental care?: No Was dental information given to patient?: Patient has dentist HPI Annual Exam HPI Details Patient is a 42-year-old male here today for annual physical?. patient has a past medical history significant for obesity, impaired glucose metabolism, moderate persistent asthma, KRYSTIAN. Concern-- > currently dealing with some mid abdominal pain that he believes his viral. Has been feeling somewhat nauseous though denies any diarrhea or vomiting episodes. HTN:? Continues on lisinopril 30 mg though reports his home blood pressures average around 145 systolic. He otherwise denies any headaches, chest pain or shortness of breath on exertion.? ? Was on hydrochlorothiazide as well though was experiencing orthostatic hypertension.. Amlodipine has been ineffective for him.? He had trialed being off of Adderall though did not noticed a difference in his blood pressure. PLAN: WILL INCREASE HIS LISINOPRIL DOSE TO 40 MG FOR BETTER BLOOD PRESSURE CONTROL . .. Obesity:? He is followed by weight management program and started on Ozempic weekly injections unfortunately experienced side effects. Was transition to oral Contrave though has not been effective. He does admit that he does have a lot of carbohydrates in his diet. Was on a keto diet in the past which worked well for him any lost 60 lb. Patient does understand his BMI is over 30 will work on being more physically active and adapting to better eating habits to reduce his weight. .. Asthma: Has been fairly well controlled with maintenance inhaler and p.r.n. use of his albuterol inhaler. He is followed by pulmonology at this time. .. Obstructive sleep apnea:? Has a history of obstructive sleep apnea was on CPAP machine about 15 years ago.? Continues to use CPAP machine on a nightly basis.? Has upcoming appointment with pulmonology for evaluation of his obstructive sleep apnea and asthma. Vaccines: Declines flu shot today, up-to-date with pneumonia, tetanus, COVID vaccine [facility] Medical History Allergic rhinitis Somnolence, daytime Morbid obesity Desensitization to allergy shot Fatty liver Anemia Obesity (BMI 30-39.9) Anxiety Obstructive sleep apnea Asthma Surgical History History of vasectomy Family History Father Hypertension Hyperlipidemia Mother No problems noted. 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 Miquel Regan, Gloria Castle, Lex Coello and colleagues, with an educational cheo from [employer]. Review of Systems Const Denies body aches, Denies chills, Denies excessive sweating, Denies fatigue, Denies fever(s) and Denies headache(s) Eyes Denies blurry vision ENT Denies dysphagia, Denies vertigo, Denies dizziness, Denies headache(s), Denies hearing loss and Denies tinnitus Card Denies chest pain, Denies chest pain with activity, Denies syncope, Denies irregular heart rhythm and Denies dyspnea Resp Denies chest congestion, Denies cough, Denies hemoptysis, Denies dyspnea and Denies wheezing GI Denies abdominal pain, Denies melena, Denies hematochezia, Denies coffee ground emesis, Denies dysphagia, Denies diarrhea, Denies nausea and Denies vomiting Denies difficulty urinating, Denies dysuria, Denies urinary frequency, Denies urinary hesitancy and Denies urinary urgency Musc Denies arthralgias, Denies limited range of motion, Denies muscle cramps and Denies muscle weakness Skin/Breast Denies rash and Denies skin ulcer Neuro Denies Abnormal speech present, Denies confusion, Denies vertigo, Denies dizziness, Denies syncope, Denies headache(s), Denies memory loss and Denies seizure-like activity Psych Denies anxiety, Denies confusion, Denies depression, Denies memory loss, Denies panic attacks and Denies paranoia Endo Denies excessive sweating, Denies fatigue, Denies flushing, Denies polydipsia and Denies polyuria Aller/Immun Denies wheezing Physical exam (Primary Care) Vital Signs: Last Vital Signs Pulse 70 04/08/23 09:45 Resp 17 04/08/23 09:45 BP 142/90 H 04/08/23 09:45 BMI result Body Mass Index 41.8 BMI Assessment/Plan discussion: High Tobacco/Smoking Status: Tobacco use Status Tobacco use date assessed 09/09/22 04/08/23 09:46 Patient Tobacco Use Status Never used Tobacco 04/08/23 10:10 e-Cigarette/Vaping Use Never Used 04/08/23 10:10 Thrive Assessment: Date of Thrive Assessment Date Thrive assessed 09/09/22 04/08/23 09:46 Const Other: Obese General: cooperative, comfortable, no acute distress, alert and awake; No confusion Orientation/consciousness: oriented to person, oriented to place, patient oriented x3 and No confusion HENMT Head: Yes normocephalic Ears: external ears normal and TM's normal bilaterally Face and sinus: No sinus tenderness Mouth: Normal oral and palatal mucosa present and tongue normal Teeth and gingiva: dentition normal and gingiva normal Throat: Yes posterior oropharynx normal, Yes tonsils normal and Yes uvula midline Eyes Conjunctivae: conjunctivae normal Sclerae: sclerae normal Pupils: Equal, round and reactive pupils present EOM: EOMs intact bilaterally Direct Ophthalmoscopy: No no photophobia Neck Neck: Yes no lymphadenopathy, No tender and Yes no JVD Thyroid: Thyroid normal Carotids: no bruits Chest Chest palpation & inspection: no tenderness Resp Effort & Inspection: normal respiratory effort, no audible wheezes, not labored and no stridor Auscultation: no crackles, no rales, no rhonchi and no wheezes Cardio Jugular venous distension: no JVD Rate: regular rate, not bradycardic and not tachycardic Rhythm: regular rhythm Bruits: no carotid bruits Peripheral pulses: Peripheral pulses 2+ throughout GI Other: SOME DISCOMFORT TO PALPATION IN THE MID ABDOMEN. Inspection: Yes normal to inspection, No abdominal wall ecchymosis and No visible herniation Palpation (GI): Soft to palpation, Tenderness to palpation present (GI), no guarding, not rigid and No hepatosplenomegaly present Auscultation: normoactive bowel sounds General: Yes no CVA tenderness Back/Spine/Pelvis Back: no CVA tenderness and No back tenderness Cervical Spine: cervical ROM normal Thoracic/Lumbar Spine: thoracic and lumbar spine normal to inspection, straight leg raise negative bilaterally, No thoraco-lumbar ROM limited and No lumbar spinal tenderness Skin Lesions: no lesions Rashes: no rashes Wounds: no wounds Neuro General: oriented to person, oriented to place, patient oriented x3, CN's II-XI intact bilaterally and No confusion Cranial nerves: Yes Equal, round and reactive pupils present and Yes Normal accommodation reflex present Cognition (Neuro): normal cognition Speech: No Abnormal speech present Gait exam (Neuro): Normal gait present Motor exam (neuro): 5/5 motor strength present throughout Extrem Right upper extremity: full ROM; no cyanosis Left upper extremity: full ROM; no cyanosis Right lower extremity: no edema Left lower extremity: no edema Psych Appearance: grossly normal Mental Status: mental status grossly normal Affect: normal affect Attitude: cooperative Thought process: Normal thought process present Assessment and Plan Assessment & Plan (1) Annual physical exam: Code(s): Z00.00 - Encounter for general adult medical examination without abnormal findings (2) HTN (hypertension): Code(s): I10 - Essential (primary) hypertension Qualifiers: Hypertension type: primary hypertension Qualified Code(s): I10 - Essential (primary) hypertension Plan: Patient's blood pressure is still slightly elevated even with the use of lisinopril 30 mg. He is now willing to increase his lisinopril dose to 40 mg. He is speaking with a weight management program and has been trying new weight loss medications that have been effective. He anticipates trying Monjouro next (3) Obese: Code(s): E66.9 - Obesity, unspecified Qualifiers: Body mass index: BMI 40.0-44.9 Obesity classification: adult class 3 ( BMI >= 40) Obesity type: due to excess calories Serious obesity comorbidity presence: without serious comorbidity Qualified Code(s): E66.01 - Morbid (severe) obesity due to excess calories; Z68.41 - Body mass index [BMI] 40.0- 44.9, adult; Z68.41 - Body mass index [BMI] 40.0-44.9, adult Plan: As above Seeing a weight management program though has not been able to lose any significant weight. Does report going to the gym 3 times a week. Was on a keto diet in the past which helped him lose weight. He will try to reduce his carbohydrates. (4) Asthma: Comment: He has longstanding history of bronchial asthma, Has had allergy shots in the past. Bronchial asthma is mild with seasonal flare ups. RESULTS OF PULMONARY FUNCTION TEST ARE EXPLAINED TO HIM. TX: Montelukast 10 mg daily to continue. Wixela 250-50 use only ones inhalation daily . When symptoms are controlled may try to go off that. Albuterol HFA 2 puffs Q 4-6 hours only p.r.n.. Code(s): J45.909 - Unspecified asthma, uncomplicated Qualifiers: Asthma complication type: uncomplicated Asthma persistence: intermittent Asthma severity: mild Qualified Code(s): J45.20 - Mild intermittent asthma, uncomplicated Plan: Asthma has been fairly well stable with current use of a maintenance inhaler and albuterol use on a p.r.n. basis. No recent exacerbations noted. (5) Gastroenteritis: Code(s): K52.9 - Noninfective gastroenteritis and colitis, unspecified Plan: Reports over the last 3 days having mid abdominal pain. He feels he has a viral illness. Has been feeling somewhat nauseous though has not had any vomiting or diarrhea. Will send in supportive medications. Will send for viral testing. Orders: Orders SARS-CoV2/FLU/RSV Today K52.9 - Noninfective gastroenteritis and colitis, unspecified TSH reflex Free T4 Today E66.01 - Morbid (severe) obesity due to excess calories, Z68.41 - Body mass index [BMI] 40.0-44.9, adult Medications: New ondansetron HCl 8 mg PO Q12H 7 days 14 tabs 0RF K52.9 - Noninfective gastroenteritis and colitis, unspecified omeprazole 20 mg PO DAILY 14 days 14 caps 0RF K52.9 - Noninfective gastroenteritis and colitis, unspecified lisinopril 40 mg PO DAILY 90 days 90 tabs 1RF E66.01 - Morbid (severe) obesity due to excess calories, I10 - Essential (primary) hypertension, Z68.41 - Body mass index [BMI] 40.0-44.9, adult Discontinued lisinopril Discontinued Reason: Doctor's Order 30 mg PO DAILY 90 days 90 tabs 1RF I10 - Essential (primary) hypertension Coding Level of Care Code Est Pt Prev Care 40-64y(38679) Diagnoses Annual physical exam Z00.00 Primary hypertension I10 Hypertension type: primary hypertension Class 3 severe obesity due to excess calories without serious comorbidity with body mass index (BMI) of 40.0 to 44.9 in adult E66.01; Z68.41; Z68.41 Body mass index: BMI 40.0-44.9 Obesity classification: adult class 3 (BMI >= 40) Obesity type: due to excess calories Serious obesity comorbidity presence: without serious comorbidity Mild intermittent asthma without complication J45.20 Asthma complication type: uncomplicated Asthma persistence: intermittent Asthma severity: mild Gastroenteritis K52.9
== END 2023-04-08 10:31 | disposition home or self-care (01) ==
PROVIDERS: Visit Provider Physician Assistant
DX: Z00.00 Encounter for general adult medical examination without abnormal findings (principal); I10 Essential (primary) hypertension; E66.01 Morbid (severe) obesity due to excess calories; Z68.41 Body mass index [BMI] 40.0-44.9, adult; J45.20 Mild intermittent asthma, uncomplicated; K52.9 Noninfective gastroenteritis and colitis, unspecified
CPT/HCPCS: 99396

== ENCOUNTER 2023-04-08 10:35 | Outpatient (REF) | payer OTHER, SELFPAY ==
[2023-04-08 11:41] LABS: Influenza A PCR NEGATIVE (Negative); Influenza B PCR NEGATIVE (Negative); Resp Syncy Virus RNA Qual PCR NEGATIVE (Negative); SARS COV2 PCR INHOUSE NEGATIVE (Negative)
[2023-04-08 13:04] LABS: Hematocrit 45.8 % (42.0-52.0); Hemoglobin 15.6 g/dl (14.0-18.0); Mean Corpuscular HGB Conc 34.1 g/dl (31.0-36.0); Mean Corpuscular Hemoglobin 28.8 pg (27.0-33.0); Mean Corpuscular Volume 84.5 fL (80.0-98.0); Mean Platelet Volume 9.1 fL (9.4-12.4); Platelet Count 214 X10*3/uL (160-400); Red Blood Count 5.42 X10*6/uL (4.60-5.80); Red Cell Distribution Width 13.4 % (11.0-16.0); White Blood Count 5.8 X10*3/uL (4.8-10.8)
[2023-04-08 13:57] LABS: Alanine Aminotransferase 51 U/L (0-40); Albumin Level 4.3 g/dL (3.5-5.0); Alkaline Phosphatase 52 U/L (39-117); Anion Gap 14 (12-20); Aspartate Amino Transferase 30 U/L (5-37); Bilirubin Total 0.4 mg/dL (0.0-1.0); Blood Urea Nitrogen 13 mg/dL (9-16); Calcium 9.1 mg/dL (8.4-10.2); Carbon Dioxide 24 mmol/L (22-29); Chloride 106 mmol/L (96-108); Estimated Glomerular Filt Rate > 60; Glucose Fasting 77 mg/dL (60-99); Potassium 3.5 mmol/L (3.3-5.1); Sodium 140 mmol/L (135-145); Total Protein 7.3 g/dL (6.5-8.0)
[2023-04-08 14:04] LABS: Creatinine Urine 203.61 mg/dL; Microalbum/Creatinine Ratio Ur 14.2 ug/mg cr (<30)
[2023-04-08 14:15] LABS: TSH reflex Free T4 0.45 uIU/mL (0.32-4.0)
[2023-04-14 17:38] LABS: Testosterone, Free 45.4 pg/mL (35.0-155.0); Testosterone, Total 190 ng/dL (250-1100)
== END 2023-04-08 10:36 | disposition home or self-care (01) ==
LOC: HO.LAB 10:35
PROVIDERS: PCP Physician Assistant; Visit Provider Physician Assistant
DX: Z11.52 Encounter for screening for COVID-19 (principal); Z20.822 Contact with and (suspected) exposure to COVID-19; I10 Essential (primary) hypertension; K52.9 Noninfective gastroenteritis and colitis, unspecified; E66.01 Morbid (severe) obesity due to excess calories; Z68.41 Body mass index [BMI] 40.0-44.9, adult
CPT/HCPCS: 0241U; 80053; 82043; 82570; 84402; 84403; 84443; 85027

== ENCOUNTER 2023-04-16 08:50 | Outpatient (AMB) | payer OTHER, SELFPAY ==
[2023-04-16 08:51] VITALS: BP 138/82; PULSE 67; O2SAT 98; BMI 41.5
--- NOTE | 2023-04-16 08:51 | A.OFFPC_ITS ---
Vital Signs 04/16/23 08:51 Height 5 ft 9 in Weight 281 lb BMI 41.5 BP 138/82 Blood Pressure Location Lt brachial Position Sitting Pulse 67 Pulse Source Pulse Oximeter Pulse Oximetry (%) 98 Oxygen Delivery Method Room Air Intake Visit Reasons: f/u HTN Pbx Supervisor Required: No Compensation Business Partner: Not Required per policy Accompanied by: Self / Same As Patient Allergies levofloxacin [From LEVAQUIN] Allergy (Mild, Verified 04/16/23 08:57) HIVES egg Allergy (Unknown, Verified 04/16/23 08:57) Unknown seafood Allergy (Unknown, Verified 04/16/23 08:57) Unknown amlodipine Adverse Reaction (Intermediate, Verified 04/16/23 08:57) ineffective hydrochlorothiazide Adverse Reaction (Intermediate, Verified 04/16/23 08:57) orthostatic hypotension Medication List - Last Reconciled 04/16/23 by Joe Mendieta PA-C albuterol sulfate 90 mcg/actuation (Ventolin HFA) 2 puffs inhalation Q4-6H PRN 30 days albuterol sulfate 2.5 mg (3 mL) continuous nebulization Q4-6H PRN fluticasone propion-salmeterol 250-50 mcg/dose (Wixela Inhub) 1 inh inhalation BID 30 days fluticasone propionate 50 mcg/actuation 2 sprays intranasal DAILY PRN lisinopril 40 mg PO DAILY 90 days montelukast 10 mg PO DAILY omeprazole 20 mg PO DAILY 14 days ondansetron HCl 8 mg PO Q12H 7 days Tobacco use date assessed: 09/09/22 Dental Screening Dental Screen Date: 04/16/23 Did you have a dental visit in the last 12 months?: Yes Did you have a dental problem in the last 6 months where you did not have access to dental care?: No Was dental information given to patient?: Patient has dentist HPI f/u HTN HPI Details Patient is a 42-year-old male here today for a follow-up visit. At last visit we discussed his elevated blood pressure readings and increase his lisinopril dose to 40 mg. Blood pressure somewhat improved today in office. Also labs taken and noted a low testosterone at 190. .. Hypertension: Blood pressure slightly improved from previous visit. Continues on lisinopril 40 mg. .. Hypogonadism: Noted to have low testosterone on most recent labs. Has been having trouble losing weight. Will refer to Urology for hypogonad workup. Laboratory Tests 04/08/23 11:00 AST 30 ALT 51 H Total Testosterone 190 L PFSH Medical History Allergic rhinitis Somnolence, daytime Morbid obesity Desensitization to allergy shot Fatty liver Anemia Obesity (BMI 30-39.9) Anxiety Obstructive sleep apnea Asthma Surgical History History of vasectomy Family History Father Hypertension Hyperlipidemia Mother No problems noted. Maternal Grandmother Myocardial infarction Maternal Grandfather Testicular cancer Paternal Grandmother Pancreatic cancer Paternal Grandfather Colon cancer Paternal Aunt Colon cancer Brother Bipolar disorder Other Mental health disorder Social History Housing: House Alcohol intake: former Year quit: 2021 Patient Tobacco Use Status: Never used Tobacco Years Smoked: teenage stopped e-Cigarette/Vaping Use: Never Used Second Hand Smoke Exposure: No service: No Current occupational status: employed Current occupation: [employer] Cognitive needs: No Hearing needs: No Vision needs: No Questionnaire Thrive Questionnaire Date Thrive assessed: 09/09/22 MO-7 AMB Questionnaire MO-7 Date MO - 7 assessed: 09/09/22 Source: Developed by Drs. Miquel Regan, Gloria Castle, Lex Coello and colleagues, with an educational cheo from [employer]. Review of Systems Const Denies headache(s) Eyes Denies loss of vision ENT Denies vertigo, Denies dizziness, Denies headache(s) and Denies sore throat Card Denies chest pain, Denies leg edema and Denies lightheadedness Resp Denies cough, Denies hemoptysis and Denies wheezing GI Denies abdominal pain, Denies melena, Denies constipation, Denies diarrhea and Denies vomiting Denies dysuria, Denies urinary frequency and Denies urinary urgency Musc Denies arthralgias, Denies joint swelling, Denies numbness and Denies tingling Neuro Denies Abnormal speech present, Denies behavioral changes, Denies vertigo, Denies dizziness, Denies headache(s), Denies loss of vision, Denies memory loss, Denies numbness and Denies tingling Psych Denies anxiety, Denies behavioral changes, Denies depression, Denies memory loss and Denies panic attacks Christian/Lymph Denies easy bleeding and Denies easy bruising Aller/Immun Denies wheezing Physical exam (Primary Care) Vital Signs: Last Vital Signs Pulse 67 04/16/23 08:51 BP 138/82 04/16/23 08:51 Pulse Ox 98 04/16/23 08:51 Oxygen Delivery Method Room Air 04/16/23 08:51 BMI result Body Mass Index 41.5 Tobacco/Smoking Status: Tobacco use Status Tobacco use date assessed 09/09/22 04/16/23 08:56 Patient Tobacco Use Status Never used Tobacco 04/16/23 08:56 e-Cigarette/Vaping Use Never Used 04/16/23 08:56 Thrive Assessment: Date of Thrive Assessment Date Thrive assessed 09/09/22 04/16/23 08:56 Const General: healthy appearing, no acute distress, alert and awake Nutritional Appearance: well nourished Orientation/consciousness: oriented to person, oriented to place and oriented to time HENMT Ears: TM's normal bilaterally General nose exam: Normal nasal mucous membranes and turbinates present Eyes Conjunctivae: conjunctivae normal Sclerae: sclerae normal Pupils: Equal, round and reactive pupils present Neck Neck: Yes no lymphadenopathy and Yes no JVD Thyroid: Thyroid normal Carotids: no bruits Resp Effort & Inspection: normal respiratory effort and not tachypneic Auscultation: no crackles, no rales, no rhonchi and no wheezes Cardio Rate: regular rate Rhythm: regular rhythm Heart sounds: no murmurs and normal S1 and S2 GI Palpation (GI): Soft to palpation, nontender, no hepatomegaly and no splenomegaly Auscultation: normal bowel sounds Skin General skin exam: no rashes or lesions noted and dry skin Neuro General: oriented to person, oriented to place and oriented to time Cranial nerves: Yes Equal, round and reactive pupils present Speech: No Abnormal speech present Gait exam (Neuro): Normal gait present Motor exam (neuro): no tremor noted Extrem Right upper extremity: full ROM Left upper extremity: full ROM Right lower extremity: full ROM; no edema Left lower extremity: full ROM; no edema Psych Mental Status: mental status grossly normal Speech and movement: Normal speech and movement present Affect: normal affect Attitude: cooperative Thought process: Normal thought process present Office Procedures Flu Questionnaire Does the patient have a severe egg allergy?: No Does the patient have severe life threatening allergies?: No Does the patient have a fever or illness today?: No Has the patient ever had Guillain-Newton Syndrome?: No Has the patient ever had any past reaction to a flu shot?: No Immunizations flu vacc [id number] 6mos up(PF) 60 mcg(15 mcgx4)/0.5 mL IM syringe Performing Provider: Joe Mendieta PA-C Performing Location: [facility] Administered by: CHRISTOPHER Dougherty on 04/16/23 09:17 Dose Route Admin Location Dispensed Lot Number Expiration Date NDC 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 Will refer to Urology for hypogonadism and treatment and workup. (2) HTN (hypertension): Code(s): I10 - Essential (primary) hypertension Qualifiers: Hypertension type: primary hypertension Qualified Code(s): I10 - Essential (primary) hypertension Plan: Patient's blood pressure slightly improved today in office. Will continue him on lisinopril 40 mg. Advised on continuing monitoring his blood pressure at home with goal blood pressure to be below 140/90 Orders: Orders Influenza [id number] Immunization Today Z23 - Encounter for immunization Referrals Urology Referral E29.1 - Testicular hypofunction Medications: New fluticasone propion-salmeterol 250-50 mcg/dose (Advair Diskus) 1 inh inhalation BID 90 days 3 inhalers 1RF J45.20 - Mild intermittent asthma, uncomplicated Discontinued fluticasone propion-salmeterol 250-50 mcg/dose (Wixela Inhub) Discontinued Reason: Doctor's Order 1 inh inhalation BID 30 days 60 ea 2RF J45.20 - Mild intermittent asthma, uncomplicated Coding Level of Care Code Est Pt Level 4 (11405) Diagnoses Hypogonadism in male E29.1 Primary hypertension I10 Hypertension type: primary hypertension
== END 2023-04-16 09:19 | disposition home or self-care (01) ==
PROVIDERS: PCP Physician Assistant; Visit Provider Physician Assistant
DX: E29.1 Testicular hypofunction (principal); I10 Essential (primary) hypertension; Z23 Encounter for immunization
CPT/HCPCS: 90471; 90686; 99214

== ENCOUNTER 2023-05-28 10:11 | Outpatient (AMB) | payer OTHER, SELFPAY ==
--- NOTE | 2023-05-28 10:18 | A.OFFVIS_ITS ---
Intake Vital Signs 05/28/23 10:19 Height 5 ft 9 in Weight 279 lb 15.793 oz BMI 41.3 BP 130/108 H Blood Pressure Location Lt brachial Position Sitting Pulse 77 Pulse Source Pulse Oximeter Pulse Oximetry (%) 99 Oxygen Delivery Method Room Air Intake Visit Reasons: KRYSTIAN/Asthma Intake Note: pt is here for follow up of KRYSTIAN and asthma, doing well with cpap and also inhalers. 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 Allergies levofloxacin [From LEVAQUIN] Allergy (Mild, Verified 05/28/23 10:41) HIVES egg Allergy (Unknown, Verified 05/28/23 10:41) Unknown seafood Allergy (Unknown, Verified 05/28/23 10:41) Unknown amlodipine Adverse Reaction (Intermediate, Verified 05/28/23 10:41) ineffective hydrochlorothiazide Adverse Reaction (Intermediate, Verified 05/28/23 10:41) orthostatic hypotension Medication List - Last Reconciled 05/28/23 by Rj Gentile MD albuterol sulfate 90 mcg/actuation (Ventolin HFA) 2 puffs inhalation Q4-6H PRN 30 days albuterol sulfate 2.5 mg (3 mL) continuous nebulization Q4-6H PRN fluticasone propion-salmeterol 250-50 mcg/dose (Advair Diskus) 1 inh inhalation BID 90 days fluticasone propionate 50 mcg/actuation 2 sprays intranasal DAILY PRN lisinopril 40 mg PO DAILY 90 days montelukast 10 mg PO DAILY omeprazole 20 mg PO DAILY PRN ondansetron HCl 8 mg PO Q12H 7 days Do you need a note to return to daycare/school/sports/work: No HPI KRYSTIAN/Asthma HPI Details 42 YEARS OLD GENTLEMAN WITH MORBID OBESI TY, OBSTRUCTIVE SLEEP APNEA, AND BRONCHIAL ASTHMA,. COMES FOR FOLLOW-UP USING HIS CPAP REGULARLY EVERY NIGHT AND SLEEPS WELL FOR 7-8 HOURS PER NIGHT. DENIES DAYTIME SLEEPINESS. HE IS VERY HAPPY WITH THE CPAP USE, AND LIKES THE FULLFACE MASK. WEIGHT REMAINS ALMOST THE SAME BUT HE IS TRYING TO LOSE. . HE FEELS METAL RIVETER BRONCHIAL ASTHMA WELL CONTROLLED AND HE HAS HARDLY NEEDED TO USE THE RESCUE INHALER. SOMETIME HE USES WIXELA ONLY ONCE A DAY. HE HAS TRY TO GO WITHOUT WIXELA FOR A FEW DAYS ON THE WE CAN BUT STARTS HAVING COUGH AND WHEEZING. [facility] Medical History Allergic rhinitis Somnolence, daytime Morbid obesity Desensitization to allergy shot Fatty liver Anemia Obesity (BMI 30-39.9) Anxiety Obstructive sleep apnea Asthma Surgical History History of vasectomy Family History Father Hypertension Hyperlipidemia Mother No problems noted. Maternal Grandmother Myocardial infarction Maternal Grandfather Testicular cancer Paternal Grandmother Pancreatic cancer Paternal Grandfather Colon cancer Paternal Aunt Colon cancer Brother Bipolar disorder Other Mental health disorder Social History Housing: House Alcohol intake: former Year quit: 2021 Patient Tobacco Use Status: Never used Tobacco Years Smoked: teenage stopped e-Cigarette/Vaping Use: Never Used Second Hand Smoke Exposure: No service: No Current occupational status: employed Current occupation: [employer] Cognitive needs: No Hearing needs: No Vision needs: No Review of Systems Const All systems reviewed & are unremarkable except as noted in HPI and below Reports headache(s) (In AMs) Eyes Reports no additional complaints ENT Reports no additional complaints and Reports headache(s) (In AMs) Card Denies chest pain, Denies irregular heart rhythm and Denies leg edema Resp Reports as per HPI GI Denies no additional complaints Reports no additional complaints Musc Reports no additional complaints Neuro Reports headache(s) (In AMs) Psych Reports depression (Mild controlled) Physical Exam Vital Signs: Last Vital Signs Pulse 77 05/28/23 10:19 BP 130/108 H 05/28/23 10:19 Pulse Ox 99 05/28/23 10:19 Oxygen Delivery Method Room Air 05/28/23 10:19 BMI result Body Mass Index 41.3 This patient is grossly obese with a round face. Const General: healthy appearing (Except for being overweight), comfortable, no acute distress, alert and awake Orientation/consciousness: patient oriented x3 HEENT Head: Yes normal to inspection General nose exam: No nasal polyps present and No nasal discharge present Face and sinus: Yes sinuses nontender Mouth: oropharynx abnormals (Narrow and crowded, Mallampati class 3) Throat: Yes posterior oropharynx normal Eyes General: appearance normal, both eyes and all related structures Neck Neck: Yes normal visual inspection, Yes no lymphadenopathy, Yes trachea midline, Yes no JVD and Yes other (Neck circumference 18 in) Thyroid: Thyroid normal Chest Chest palpation & inspection: normal inspection of the chest, normal palpation of entire chest wall and no tenderness Resp Effort & Inspection: normal respiratory effort Auscultation: clear to auscultation bilaterally, no crackles, no rhonchi and no wheezes Cardio Palpation: normal PMI Rate: regular rate Rhythm: regular rhythm Heart sounds: no gallops and no murmurs Peripheral pulses: Peripheral pulses 2+ throughout GI Palpation (GI): Soft to palpation, nontender, No hepatosplenomegaly present, no masses and Other GI palpation findings present (Abdomen is moderately obese and protuberant) Auscultation: normal bowel sounds Back/Spine/Pelvis Thoracic/Lumbar Spine: thoracic and lumbar spine normal to inspection Skin General skin exam: no rashes or lesions noted Neuro General: patient oriented x3 and no focal motor deficits Cranial nerves: Yes CN's II-XII intact bilaterally Extrem General: Yes normal to inspection, Yes no clubbing, cyanosis or edema and Yes no calf tenderness Psych Appearance: grossly normal and well kempt Speech and movement: Normal speech and movement present Results Reviewed Results Reviewed: COMPLIANCE REPORT IS REVIEWED. HE HAS USED 30/30, 100% OF THE NIGHTS AVERAGE USE PER NIGHT 8 HOURS 38 MINUTES. PRESSURE USED MOSTLY 16-18 CM. NO AIR LEAK RESIDUAL AHI ONLY 1 Assessment & Plan Assessment & Plan (1) Morbid obesity: Comment: BMI= 41.3 He is trying to lose weight with dietary restrictions and meds, but not succeeding so for,. 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 (2) Somnolence, daytime: Comment: His daytime sleepiness is much improved since he is using the CPAP. Code(s): R40.0 - Somnolence Plan: Encouraged to continue . Using the CPAP every night (3) Allergic rhinitis: Comment: Is the us nasal symptoms remain under control as long as he uses montelukast 10 mg daily. Also Flonase 50 mcg 2 sprays in each nostril daily. Code(s): J30.9 - Allergic rhinitis, unspecified Plan: as above (4) Obstructive sleep apnea: Comment: He had to mild obstructive sleep apnea but remained very symptomatic. Now he is using CPAP regularly every night with good compliance, . Feeling much better Denies any daytime sleepiness. No issues with the use of CPAP. Code(s): G47.33 - Obstructive sleep apnea (adult) (pediatric) Plan: .Commended for good compliance Encouraged to keep on using the CPAP every night. (5) Asthma: Comment: He has longstanding history of bronchial asthma, Has had allergy shots in the past. Bronchial asthma is mild with seasonal flare ups. With the current medical regimen it is well controlled to the point that he can not cut down the use of Wixela 2 only once a day. However he cannot go without it for more than couple days. Code(s): J45.909 - Unspecified asthma, uncomplicated Qualifiers: Asthma severity: mild Asthma persistence: intermittent Asthma complication type: uncomplicated Qualified Code(s): J45.20 - Mild intermittent asthma, uncomplicated Plan: TX: Montelukast 10 mg daily to continue. Wixela 250-50 use only ones inhalation daily . When symptoms are controlled may try to go off that. Albuterol HFA 2 puffs Q 4-6 hours only p.r.n.. Medications: Changed From omeprazole 20 mg PO DAILY 14 days 14 caps 0RF K52.9 - Noninfective gastroenteritis and colitis, unspecified To omeprazole 20 mg PO DAILY PRN K52.9 - Noninfective gastroenteritis and colitis, unspecified Coding Level of Care Code Est Pt Level 3 (57077) Diagnoses Morbid obesity E66.01 Somnolence, daytime R40.0 Allergic rhinitis J30.9 Obstructive sleep apnea G47.33 Mild intermittent asthma without complication J45.20 Asthma severity: mild Asthma persistence: intermittent Asthma complication type: uncomplicated
[2023-05-28 10:19] VITALS: BP 130/108; PULSE 77; O2SAT 99; BMI 41.3
== END 2023-05-28 10:41 | disposition home or self-care (01) ==
PROVIDERS: PCP Physician Assistant; Visit Provider Internal Medicine
DX: E66.01 Morbid (severe) obesity due to excess calories (principal); R40.0 Somnolence; J30.9 Allergic rhinitis, unspecified; G47.33 Obstructive sleep apnea (adult) (pediatric); J45.20 Mild intermittent asthma, uncomplicated
CPT/HCPCS: 99213

== ENCOUNTER → 2023-05-28 10:11 | Outpatient (BNVA) | payer OTHER, SELFPAY | PROVIDERS: PCP Physician Assistant; Visit Provider Internal Medicine ==

== ENCOUNTER 2023-09-23 16:04 | Outpatient (AMB) | payer OTHER, SELFPAY ==
[2023-09-23 16:07] VITALS: BP 150/98; PULSE 72; O2SAT 99; BMI 40.2
--- NOTE | 2023-09-23 16:07 | A.OFFPC_ITS ---
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 Accompanied by: Self / Same As Patient Allergies levofloxacin [From LEVAQUIN] Allergy (Mild, Verified 09/23/23 16:08) HIVES egg Allergy (Unknown, Verified 09/23/23 16:08) Unknown seafood Allergy (Unknown, Verified 09/23/23 16:08) Unknown amlodipine Adverse Reaction (Intermediate, Verified 09/23/23 16:08) ineffective hydrochlorothiazide Adverse Reaction (Intermediate, Verified 09/23/23 16:08) orthostatic hypotension Tobacco use date assessed: 09/23/23 Dental Screening Dental Screen Date: 04/16/23 [facility] Medical History Allergic rhinitis Somnolence, daytime Morbid obesity Desensitization to allergy shot Fatty liver Anemia Obesity (BMI 30-39.9) Anxiety Obstructive sleep apnea Asthma Surgical History History of vasectomy Family History Father Hypertension Hyperlipidemia Mother No problems noted. Maternal Grandmother Myocardial infarction Maternal Grandfather Testicular cancer Paternal Grandmother Pancreatic cancer Paternal Grandfather Colon cancer Paternal Aunt Colon cancer Brother Bipolar disorder Other Mental health disorder Social History Housing: House Alcohol intake: former Year quit: 2021 Patient Tobacco Use Status: Never used Tobacco Years Smoked: teenage stopped e-Cigarette/Vaping Use: Never Used Second Hand Smoke Exposure: No service: No Current occupational status: employed Current occupation: [employer] Cognitive needs: No Hearing needs: No Vision needs: No Questionnaire Thrive Questionnaire Date Thrive assessed: 09/09/22 MO-7 AMB Questionnaire MO-7 Date MO - 7 assessed: 09/09/22 Source: Developed by Drs. Miquel Regan, Gloria Castle, Lex Coello and colleagues, with an educational cheo from [employer]. Physical exam (Primary Care) Tobacco/Smoking Status: Tobacco use Status Tobacco use date assessed 09/09/22 04/16/23 08:56 Patient Tobacco Use Status Never used Tobacco 04/16/23 08:56 e-Cigarette/Vaping Use Never Used 04/16/23 08:56 Thrive Assessment: Date of Thrive Assessment Date Thrive assessed 09/09/22 04/16/23 08:56 Coding
--- NOTE | 2023-09-23 16:07 | A.OFFPC_ITS ---
Vital Signs 09/23/23 16:07 Height 5 ft 9 in Weight 272 lb 8 oz BMI 40.2 BP 150/98 H Blood Pressure Location Lt brachial Position Sitting Pulse 72 Pulse Source Pulse Oximeter Pulse Oximetry (%) 99 Oxygen Delivery Method Room Air Intake Visit Reasons: f/u HTN Clinical Psychologist Licensed Required: No Accompanied by: Self / Same As Patient Allergies levofloxacin [From LEVAQUIN] Allergy (Mild, Verified 09/23/23 16:14) HIVES egg Allergy (Unknown, Verified 09/23/23 16:14) Unknown seafood Allergy (Unknown, Verified 09/23/23 16:14) Unknown amlodipine Adverse Reaction (Intermediate, Verified 09/23/23 16:14) ineffective hydrochlorothiazide Adverse Reaction (Intermediate, Verified 09/23/23 16:14) orthostatic hypotension Medication List - Last Reconciled 09/23/23 by Joe Mendieta PA-C albuterol sulfate 90 mcg/actuation (Ventolin HFA) 2 puffs inhalation Q4-6H PRN 30 days albuterol sulfate 2.5 mg (3 mL) continuous nebulization Q4-6H PRN fluticasone propion-salmeterol 250-50 mcg/dose (Advair Diskus) 1 inh inhalation BID 90 days fluticasone propionate 50 mcg/actuation 2 sprays intranasal DAILY PRN lisinopril 40 mg PO DAILY 90 days montelukast 10 mg PO DAILY omeprazole 20 mg PO DAILY PRN ondansetron HCl 8 mg PO Q12H 7 days semaglutide (weight loss) (Wegovy) mg subcut Tobacco use date assessed: 09/23/23 Dental Screening Dental Screen Date: 09/23/23 Did you have a dental visit in the last 12 months?: Yes Did you have a dental problem in the last 6 months where you did not have access to dental care?: No Was dental information given to patient?: Patient has dentist HPI f/u HTN HPI Details Patient is a 42-year-old male here today for a follow-up visit. At last visit we discussed his elevated blood pressure readings and increase his lisinopril dose to 40 mg. Blood pressure somewhat elevated today in office. Also labs taken and noted a low testosterone at 190. .. Hypertension: Blood pressure slightly elevated today in office. He reports that [facility] getting 135-140 systolic. Continues on lisinopril 40 mg. He had side effects hydrochlorothiazide and amlodipine was not effective for him. PLAN: Will continue to monitor blood pressure at home, will continue his weight loss journey in hopes that blood pressure will normalize. Will consider adding an additional blood pressure medication if blood pressure remains above 140/90 at home. .. Obesity: He is followed by weight management clinic and continues on Wegovy 1 mg weekly. Has lost a few lb since last office visit. Has also been working extensively on diet and exercise. .. Hypogonadism: Most recent testosterone level low for his age. He does note it being a difficult to lose weight. He is considering following up with Urology about testosterone therapy. [facility] Medical History Allergic rhinitis Somnolence, daytime Morbid obesity Desensitization to allergy shot Fatty liver Anemia Obesity (BMI 30-39.9) Anxiety Obstructive sleep apnea Asthma Surgical History History of vasectomy Family History Father Hypertension Hyperlipidemia Mother No problems noted. Maternal Grandmother Myocardial infarction Maternal Grandfather Testicular cancer Paternal Grandmother Pancreatic cancer Paternal Grandfather Colon cancer Paternal Aunt Colon cancer Brother Bipolar disorder Other Mental health disorder Social History Housing: House Alcohol intake: former Year quit: 2021 Patient Tobacco Use Status: Never used Tobacco Years Smoked: teenage stopped e-Cigarette/Vaping Use: Never Used Second Hand Smoke Exposure: No service: No Current occupational status: employed Current occupation: [employer] Cognitive needs: No Hearing needs: No Vision needs: No Questionnaire PHQ-9 Over the last 2 weeks, how often have you been bothered by any of the following problems? 1. Little interest or pleasure in doing things: not at all 2. Feeling down, depressed, or hopeless: not at all 3. Trouble falling or staying asleep, or sleeping too much: not at all 4. Feeling tired or having little energy: not at all 5. Poor appetite or overeating: not at all 6. Feeling bad about yourself - or that you are a failure or have let yourself or your family down: not at all 7. Trouble concentrating on things, such as reading the newspaper or watching television: not at all 8. Moving or speaking so slowly that other people could have noticed. Or the opposite - being so fidgety or restless that you have been moving around a lot more than usual: not at all 9. Thoughts that you would be better off or of hurting yourself in some way: not at all Total score: 0 Depression Screening Interpretation: Negative Depression Screening Done: Yes 55961 - PHQ-9 Billing: Yes Source: Developed by Drs. Miquel Regan, Gloria Castle, Lex Coello and colleagues, with an educational cheo from [employer]. Thrive Questionnaire Date Thrive assessed: 09/23/23 I am a: Patient What is your living situation today?: I have a steady place to live Within the past 12 months, did the food you bought not last and you didn't have the money to get more?: Never true Within the past 12 months, did you worry whether your food would run out before you got money to buy more?: Never true Do you have trouble paying for medicines?: No Do you have trouble getting transportation to medical appointments?: No Do you have trouble paying your heating and electricity bill?: No Do you have trouble taking care of your child, family member or friend?: No Do you have trouble with day-to-day activities such as bathing, preparing meals, shopping, managing finances, etc.?: No Are you currently unemployed and looking for a job?: No Are you interested in more education?: No Please select the resources that you would like help with: None Currently or been in a relationship where the following occur: no concerns reported THRIVE Score: 0 AUDIT C Alcohol Use Questionnaire (AUDIT-C) 1. How often do you have a drink containing alcohol?: Monthly or less 2. How many drinks containing alcohol do you have on a typical day when you are drinking?: 1 or 2 Total Score: 1 MO-7 AMB Questionnaire MO-7 Date MO - 7 assessed: 09/23/23 Feeling nervous, anxious, or on edge: 0 = Not at all Not being able to stop or control worryin = Not at all Worrying too much about different things: 0 = Not at all Trouble relaxin = Not at all Being so restless that it is hard to sit still: 0 = Not at all Becoming easily annoyed or irritable: 0 = Not at all Feeling afraid as if something awful might happen: 0 = Not at all Total MO-7 score (0-4 normal; 5-9 mild; 10-14 moderate; 15-21 severe): 0 Source: Developed by Drs. Miquel Regan, Gloria Castle, Lex Coello and colleagues, with an educational cheo from [employer]. MO-7 Assessment Billing MO-7 Assessment Tool: MO-7 Assessment 94513 Review of Systems Const Denies headache(s) Eyes Denies loss of vision ENT Denies vertigo, Denies dizziness, Denies headache(s) and Denies sore throat Card Denies chest pain, Denies leg edema and Denies lightheadedness Resp Denies cough, Denies hemoptysis and Denies wheezing GI Denies abdominal pain, Denies melena, Denies constipation, Denies diarrhea and Denies vomiting Denies dysuria, Denies urinary frequency and Denies urinary urgency Musc Denies arthralgias, Denies joint swelling, Denies numbness and Denies tingling Neuro Denies Abnormal speech present, Denies behavioral changes, Denies vertigo, Denies dizziness, Denies headache(s), Denies loss of vision, Denies memory loss, Denies numbness and Denies tingling Psych Denies anxiety, Denies behavioral changes, Denies depression, Denies memory loss and Denies panic attacks Christian/Lymph Denies easy bleeding and Denies easy bruising Aller/Immun Denies wheezing Physical exam (Primary Care) Vital Signs: Last Vital Signs Pulse 72 09/23/23 16:07 BP 150/98 H 09/23/23 16:07 Pulse Ox 99 09/23/23 16:07 Oxygen Delivery Method Room Air 09/23/23 16:07 BMI result Body Mass Index 40.2 Tobacco/Smoking Status: Tobacco use Status Tobacco use date assessed 09/23/23 09/23/23 16:14 Patient Tobacco Use Status Never used Tobacco 09/23/23 16:14 e-Cigarette/Vaping Use Never Used 09/23/23 16:14 PHQ-9: PHQ-9 Score PHQ-9: Total score 0 09/23/23 16:16 Depression Screening Interpretation: Negative Thrive Assessment: Date of Thrive Assessment Date Thrive assessed 09/23/23 09/23/23 16:14 Currently or been in a relationship where the following occur: no concerns reported Const General: healthy appearing, no acute distress, alert and awake Nutritional Appearance: well nourished Orientation/consciousness: oriented to person, oriented to place and oriented to time HENMT Ears: TM's normal bilaterally General nose exam: Normal nasal mucous membranes and turbinates present Eyes Conjunctivae: conjunctivae normal Sclerae: sclerae normal Pupils: Equal, round and reactive pupils present Neck Neck: Yes no lymphadenopathy and Yes no JVD Thyroid: Thyroid normal Carotids: no bruits Resp Effort & Inspection: normal respiratory effort and not tachypneic Auscultation: no crackles, no rales, no rhonchi and no wheezes Cardio Rate: regular rate Rhythm: regular rhythm Heart sounds: no murmurs and normal S1 and S2 GI Palpation (GI): Soft to palpation, nontender, no hepatomegaly and no splenomegaly Auscultation: normal bowel sounds Skin General skin exam: no rashes or lesions noted and dry skin Neuro General: oriented to person, oriented to place and oriented to time Cranial nerves: Yes Equal, round and reactive pupils present Speech: No Abnormal speech present Gait exam (Neuro): Normal gait present Motor exam (neuro): no tremor noted Extrem Right upper extremity: full ROM Left upper extremity: full ROM Right lower extremity: full ROM; no edema Left lower extremity: full ROM; no edema Psych Mental Status: mental status grossly normal Speech and movement: Normal speech and movement present Affect: normal affect Attitude: cooperative Thought process: Normal thought process present Assessment and Plan Assessment & Plan (1) HTN (hypertension): Code(s): I10 - Essential (primary) hypertension Qualifiers: Hypertension type: primary hypertension Qualified Code(s): I10 - Essential (primary) hypertension Plan: Patient's blood pressure elevated today in office. Will continue him on lisinopril 40 mg. Advised on continuing monitoring his blood pressure at home with goal blood pressure to be below 140/90 Will consider adding additional blood pressure medication if blood pressure remains above 140/90 consistently at home. Of note amlodipine was not effective and hydrochlorothiazide patient had side effect of dizziness to (2) Hypogonadism in male: Code(s): E29.1 - Testicular hypofunction Plan: Noted to have a testosterone level of 190. considering Urology evaluation for hypogonadism and treatment and workup. Orders: Orders Testosterone, Free/Total 09/23/23 E29.1 - Testicular hypofunction Comprehensive [place]. Panel Fast 09/23/23 I10 - Essential (primary) hypertension Hemoglobin A1c 09/23/23 R73.02 - Impaired glucose tolerance (oral) Microalbumin, Random (w Creat) 09/23/23 I10 - Essential (primary) hypertension Patient Instructions: Goal: Blood pressure to be below 140/90 Barriers: Adherence to physical activity and healthy eating habits Coding Level of Care Code Est Pt Level 4 (19818) Complex EM visit Add On G2211 Diagnoses Primary hypertension I10 Hypertension type: primary hypertension Hypogonadism in male E29.1 Additional Codes MO-7 Assessment Billing - MO-7 Assessment Tool: MO-7 Assessment [id number] ([id number])
== END 2023-09-23 16:33 | disposition home or self-care (01) ==
PROVIDERS: PCP Physician Assistant; Visit Provider Physician Assistant
DX: I10 Essential (primary) hypertension (principal); E29.1 Testicular hypofunction
CPT/HCPCS: 99214; G2211

== ENCOUNTER 2023-11-24 10:47 | Outpatient (AMB) | payer OTHER, SELFPAY ==
[2023-11-24 11:14] VITALS: BP 132/90; PULSE 69; O2SAT 97; BMI 39.6
--- NOTE | 2023-11-24 11:14 | A.OFFVIS_ITS ---
Vital Signs 11/24/23 11:14 Height 5 ft 9 in Weight 268 lb BMI 39.6 BP 132/90 H Blood Pressure Location Lt brachial Position Sitting Pulse 69 Pulse Source Pulse Oximeter Pulse Oximetry (%) 97 Oxygen Delivery Method Room Air Intake Visit Reasons: KRYSTIAN/Asthma Intake Note: pt is here for follow up and states he is doing well with cpap and use every night. Human Resources Safety Manager Required: No Allergies levofloxacin [From LEVAQUIN] Allergy (Mild, Verified 11/24/23 11:41) HIVES egg Allergy (Unknown, Verified 11/24/23 11:41) Unknown seafood Allergy (Unknown, Verified 11/24/23 11:41) Unknown amlodipine Adverse Reaction (Intermediate, Verified 11/24/23 11:41) ineffective hydrochlorothiazide Adverse Reaction (Intermediate, Verified 11/24/23 11:41) orthostatic hypotension Medication List - Last Reconciled 11/24/23 by Rj Gentile MD albuterol sulfate 90 mcg/actuation (Ventolin HFA) 2 puffs inhalation Q4-6H PRN 30 days albuterol sulfate 2.5 mg (3 mL) continuous nebulization Q4-6H PRN fluticasone propion-salmeterol 250-50 mcg/dose (Advair Diskus) 1 inh inhalation BID 90 days fluticasone propionate 50 mcg/actuation 2 sprays intranasal DAILY PRN lisinopril 40 mg PO DAILY 90 days montelukast 10 mg PO DAILY omeprazole 20 mg PO DAILY PRN ondansetron HCl 8 mg PO Q12H 7 days semaglutide (weight loss) (Wegovy) mg subcut Do you need a note to return to daycare/school/sports/work: No HPI HPI KRYSTIAN/Asthma: Details: This 43 years old very pleasant gentleman is here for follow-up for his sleep apnea. He uses CPAP very regularly every night and sleeps well. He has no issue with the CPAP device or supplies. He uses the CPAP for at least 8 hours every night. He is on a weight management program and is doing well with the use of Wagovy. As far as his asthma is concerned that remains under good control. He does use Wixela 250-50 at least 1 inhalation daily, and albuterol only once in a while. Has mild nasal congestion which is controlled with the use of Flonase and montelukast 10 mg daily. [facility] Medical History Allergic rhinitis Somnolence, daytime Morbid obesity Desensitization to allergy shot Fatty liver Anemia Obesity (BMI 30-39.9) Anxiety Obstructive sleep apnea Asthma Surgical History History of vasectomy Family History Father Hypertension Hyperlipidemia Mother No problems noted. Maternal Grandmother Myocardial infarction Maternal Grandfather Testicular cancer Paternal Grandmother Pancreatic cancer Paternal Grandfather Colon cancer Paternal Aunt Colon cancer Brother Bipolar disorder Other Mental health disorder Social History Housing: House Alcohol intake: former Year quit: 2021 Patient Tobacco Use Status: Never used Tobacco Years Smoked: teenage stopped e-Cigarette/Vaping Use: Never Used Second Hand Smoke Exposure: No service: No Current occupational status: employed Current occupation: [employer] Cognitive needs: No Hearing needs: No Vision needs: No Review of Systems Const All systems reviewed & are unremarkable except as noted in HPI and below Reports headache(s) (In AMs) Eyes Reports no additional complaints ENT Reports no additional complaints and Reports headache(s) (In AMs) Card Denies chest pain, Denies irregular heart rhythm and Denies leg edema Resp Reports as per HPI GI Denies no additional complaints Reports no additional complaints Musc Reports no additional complaints Neuro Reports headache(s) (In AMs) Psych Reports depression (Mild controlled) Physical Exam Vital Signs: Last Vital Signs Pulse 69 11/24/23 11:14 BP 132/90 H 11/24/23 11:14 Pulse Ox 97 11/24/23 11:14 Oxygen Delivery Method Room Air 11/24/23 11:14 BMI result Body Mass Index 39.6 This patient is grossly obese with a round face. Const General: healthy appearing (Except for being overweight), comfortable, no acute distress, alert and awake Orientation/consciousness: patient oriented x3 HEENT Head: Yes normal to inspection General nose exam: No nasal polyps present and No nasal discharge present Face and sinus: Yes sinuses nontender Mouth: oropharynx abnormals (Narrow and crowded, Mallampati class 3) Throat: Yes posterior oropharynx normal Eyes General: appearance normal, both eyes and all related structures Neck Neck: Yes normal visual inspection, Yes no lymphadenopathy, Yes trachea midline, Yes no JVD and Yes other (Neck circumference 18 in) Thyroid: Thyroid normal Chest Chest palpation & inspection: normal inspection of the chest, normal palpation of entire chest wall and no tenderness Resp Effort & Inspection: normal respiratory effort Auscultation: clear to auscultation bilaterally, no crackles, no rhonchi and no wheezes Cardio Palpation: normal PMI Rate: regular rate Rhythm: regular rhythm Heart sounds: no gallops and no murmurs Peripheral pulses: Peripheral pulses 2+ throughout GI Palpation (GI): Soft to palpation, nontender, No hepatosplenomegaly present, no masses and Other GI palpation findings present (Abdomen is moderately obese and protuberant) Auscultation: normal bowel sounds Back/Spine/Pelvis Thoracic/Lumbar Spine: thoracic and lumbar spine normal to inspection Skin General skin exam: no rashes or lesions noted Neuro General: patient oriented x3 and no focal motor deficits Cranial nerves: Yes CN's II-XII intact bilaterally Extrem General: Yes normal to inspection, Yes no clubbing, cyanosis or edema and Yes no calf tenderness Psych Appearance: grossly normal and well kempt Speech and movement: Normal speech and movement present Results Reviewed Results Reviewed: Compliance report for the last 30 nights is reviewed. He has used 30/30 nights, 100%. Average use it per. Night 8 hours 25 minute Average pressure used. 15-16 cm .There is no air leak Residual AHI only 0.8 Assessment & Plan Assessment & Plan (1) Morbid obesity: Comment: BMI= 39.6 He is trying to lose weight with dietary restrictions and meds, has been started on Wegovy , which is helping. Code(s): E66.01 - Morbid (severe) obesity due to excess calories Category: Medical Plan: Continue watching diet and continue on Wegovy. (2) Asthma: Comment: He has longstanding history of bronchial asthma, Has had allergy shots in the past. Bronchial asthma is mild with seasonal flare ups. With the current medical regimen it is well controlled to the point that he can not cut down the use of Wixela 2 only once a day. However he cannot go without it for more than couple days. Code(s): J45.909 - Unspecified asthma, uncomplicated Category: Medical Qualifiers: Asthma severity: mild Asthma persistence: intermittent Asthma complication type: uncomplicated Qualified Code(s): J45.20 - Mild intermittent asthma, uncomplicated Plan: Continue using Wixela 250-51 inhalation daily but increased to b.i.d. if symptoms get any worse. Albuterol HFA 2 puffs Q 4-6 hours only p.r.n. Continue montelukast 10 mg daily (3) Obstructive sleep apnea: Comment: He had mild obstructive sleep apnea but remained very symptomatic. Now he is using CPAP regularly every night with good compliance, Feeling much better and definitely benefiting from the use of CPAP Denies any daytime sleepiness. No issues with the use of CPAP. Code(s): G47.33 - Obstructive sleep apnea (adult) (pediatric) Category: Medical Plan: Commended for good compliance. Advised to continue using CPAP on a daily basis. (4) Allergic rhinitis: Comment: Is the nasal symptoms remain under control as long as he uses montelukast 10 mg daily. Code(s): J30.9 - Allergic rhinitis, unspecified Category: Medical Plan: Advised to continue using montelukast 10 mg daily. And Flonase 2 sprays in each nostril daily Coding Level of Care Code Est Pt Level 3 (45657) Diagnoses Morbid obesity E66.01 Mild intermittent asthma without complication J45.20 Asthma severity: mild Asthma persistence: intermittent Asthma complication type: uncomplicated Obstructive sleep apnea G47.33 Allergic rhinitis J30.9
== END 2023-11-24 11:39 | disposition home or self-care (01) ==
PROVIDERS: PCP Physician Assistant; Visit Provider Internal Medicine
DX: E66.01 Morbid (severe) obesity due to excess calories (principal); J45.20 Mild intermittent asthma, uncomplicated; G47.33 Obstructive sleep apnea (adult) (pediatric); J30.9 Allergic rhinitis, unspecified
CPT/HCPCS: 99213

== ENCOUNTER → 2023-11-24 10:47 | Outpatient (BNVA) | payer OTHER, SELFPAY | PROVIDERS: PCP Physician Assistant; Visit Provider Internal Medicine | DX: K52.9 Noninfective gastroenteritis and colitis, unspecified (principal) ==

== ENCOUNTER 2024-01-25 15:51 | Outpatient (AMB) | payer OTHER, SELFPAY ==
--- NOTE | 2024-01-25 15:52 | A.OFFPC_ITS ---
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 Accompanied by: Self / Same As Patient Allergies levofloxacin [From LEVAQUIN] Allergy (Mild, Verified 01/25/24 16:17) HIVES egg Allergy (Unknown, Verified 01/25/24 16:17) Unknown seafood Allergy (Unknown, Verified 01/25/24 16:17) Unknown amlodipine Adverse Reaction (Intermediate, Verified 01/25/24 16:17) ineffective hydrochlorothiazide Adverse Reaction (Intermediate, Verified 01/25/24 16:17) orthostatic hypotension Medication List - Last Reconciled 01/25/24 by Joe Mendieta PA-C albuterol sulfate 90 mcg/actuation (Ventolin HFA) 2 puffs inhalation Q4-6H PRN 30 days albuterol sulfate 2.5 mg (3 mL) continuous nebulization Q4-6H PRN fluticasone propion-salmeterol 250-50 mcg/dose (Advair Diskus) 1 inh inhalation BID 90 days fluticasone propionate 50 mcg/actuation 2 sprays intranasal DAILY PRN lisinopril 40 mg PO DAILY 90 days montelukast 10 mg PO DAILY Tobacco use date assessed: 09/23/23 Dental Screening Dental Screen Date: 09/23/23 HPI f/u HTN HPI Details Patient is a 43-year-old male here today for a follow-up visit. At last visit we discussed his elevated blood pressure readings and increase his lisinopril dose to 40 mg. Blood pressure somewhat elevated today in office. Also labs taken and noted a low testosterone at 190. .. Hypertension: Blood pressure slightly elevated today in office. He reports that Kenny getting 135-140 systolic. Continues on lisinopril 40 mg. He had side effects hydrochlorothiazide and amlodipine was not effective for him. PLAN: Will continue to monitor blood pressure at home, will continue his weight loss journey in hopes that blood pressure will normalize. Will consider adding an additional blood pressure medication if blood pressure remains above 140/90 at home. .. Obesity: He is followed by weight management clinic and continues on Wegovy 1 mg weekly. He has unfortunately not able to lose much weight. He is discouraged by this and will likely start Wegovy . Has also been working extensively on diet and exercise. .. Hypogonadism: Most recent testosterone level low for his age. He does note it being a difficult to lose weight. He reports his libido is fine. He is considering following up with Urology about testosterone therapy. [facility] Medical History Allergic rhinitis Somnolence, daytime Morbid obesity Desensitization to allergy shot Fatty liver Anemia Obesity (BMI 30-39.9) Anxiety Obstructive sleep apnea Asthma Surgical History History of vasectomy Family History Father Hypertension Hyperlipidemia Mother No problems noted. Maternal Grandmother Myocardial infarction Maternal Grandfather Testicular cancer Paternal Grandmother Pancreatic cancer Paternal Grandfather Colon cancer Paternal Aunt Colon cancer Brother Bipolar disorder Other Mental health disorder Social History Housing: House Alcohol intake: former Year quit: 2021 Patient Tobacco Use Status: Never used Tobacco Years Smoked: teenage stopped e-Cigarette/Vaping Use: Never Used Second Hand Smoke Exposure: No service: No Current occupational status: employed Current occupation: [employer] Cognitive needs: No Hearing needs: No Vision needs: No Questionnaire Thrive Questionnaire Date Thrive assessed: 09/23/23 Are you currently unemployed and looking for a job?: No MO-7 AMB Questionnaire MO-7 Date MO - 7 assessed: 09/23/23 Source: Developed by Drs. Miquel Regan, Gloria Castle, Lex Coello and colleagues, with an educational cheo from [employer]. Review of Systems Const Denies headache(s) Eyes Denies loss of vision ENT Denies vertigo, Denies dizziness, Denies headache(s) and Denies sore throat Card Denies chest pain, Denies leg edema and Denies lightheadedness Resp Denies cough, Denies hemoptysis and Denies wheezing GI Denies abdominal pain, Denies melena, Denies constipation, Denies diarrhea and Denies vomiting Denies dysuria, Denies urinary frequency and Denies urinary urgency Musc Denies arthralgias, Denies joint swelling, Denies numbness and Denies tingling Neuro Denies Abnormal speech present, Denies behavioral changes, Denies vertigo, Denies dizziness, Denies headache(s), Denies loss of vision, Denies memory loss, Denies numbness and Denies tingling Psych Denies anxiety, Denies behavioral changes, Denies depression, Denies memory loss and Denies panic attacks Christian/Lymph Denies easy bleeding and Denies easy bruising Aller/Immun Denies wheezing Physical exam (Primary Care) Vital Signs: Last Vital Signs Pulse 72 01/25/24 16:16 BP 150/96 H 01/25/24 16:16 Pulse Ox 96 01/25/24 16:16 Oxygen Delivery Method Room Air 01/25/24 16:16 BMI result Body Mass Index 40.6 Tobacco/Smoking Status: Tobacco use Status Tobacco use date assessed 09/23/23 01/25/24 15:52 Patient Tobacco Use Status Never used Tobacco 01/25/24 15:52 e-Cigarette/Vaping Use Never Used 01/25/24 15:52 Thrive Assessment: Date of Thrive Assessment Date Thrive assessed 09/23/23 01/25/24 15:52 Const General: healthy appearing, no acute distress, alert and awake Nutritional Appearance: well nourished Orientation/consciousness: oriented to person, oriented to place and oriented to time HENMT Ears: TM's normal bilaterally General nose exam: Normal nasal mucous membranes and turbinates present Eyes Conjunctivae: conjunctivae normal Sclerae: sclerae normal Pupils: Equal, round and reactive pupils present Neck Neck: Yes no lymphadenopathy and Yes no JVD Thyroid: Thyroid normal Carotids: no bruits Resp Effort & Inspection: normal respiratory effort and not tachypneic Auscultation: no crackles, no rales, no rhonchi and no wheezes Cardio Rate: regular rate Rhythm: regular rhythm Heart sounds: no murmurs and normal S1 and S2 GI Palpation (GI): Soft to palpation, nontender, no hepatomegaly and no splenomegaly Auscultation: normal bowel sounds Skin General skin exam: no rashes or lesions noted and dry skin Neuro General: oriented to person, oriented to place and oriented to time Cranial nerves: Yes Equal, round and reactive pupils present Speech: No Abnormal speech present Gait exam (Neuro): Normal gait present Motor exam (neuro): no tremor noted Extrem Right upper extremity: full ROM Left upper extremity: full ROM Right lower extremity: full ROM; no edema Left lower extremity: full ROM; no edema Psych Mental Status: mental status grossly normal Speech and movement: Normal speech and movement present Affect: normal affect Attitude: cooperative Thought process: Normal thought process present Office Procedures Flu Questionnaire Does the patient have a severe egg allergy?: No Does the patient have severe life threatening allergies?: No Does the patient have a fever or illness today?: No Has the patient ever had Guillain-[place] Syndrome?: No Has the patient ever had any past reaction to a flu shot?: No Immunizations Fluarix Triv 7533-0620 (PF) 45 mcg (15 mcg x 3)/0.5 mL IM syringe Performing Provider: Joe Mendieta PA-C [facility] Administered by: MAURICE White on 01/25/24 16:54 Dose Route Admin Location Dispensed Lot Number Expiration Date NDC Registered Client Associate 0.5 mL IM Left Deltoid 0.5 mL [id number] 10/17/24 [id number] [employer] VIS Given Date VIS Provided VIS Publication Date 01/25/24 Single Vaccine 20 Eligibility Eligibility Date Funding Source Not [facility] Eligible 01/25/24 Private Coding Level of Care Code Est Pt Level 4 (00051) Diagnoses Primary hypertension I10 Hypertension type: primary hypertension Impaired glucose tolerance R73.02 Morbid obesity E66.01 Low testosterone in male R79.89 Assessment & Plan Assessment & Plan (1) HTN (hypertension): Code(s): I10 - Essential (primary) hypertension Category: Medical Qualifiers: Hypertension type: primary hypertension Qualified Code(s): I10 - Essential (primary) hypertension Plan: Patient's blood pressure elevated today in office. Continues on highest dose of lisinopril. Has tried amlodipine though was ineffective and hydrochlorothiazide caused him to have orthostatic hypotension. He would like to work extensively on weight loss to control his blood pressure. Goal blood pressures to be below 140/90 (2) Impaired glucose tolerance: Code(s): R73.02 - Impaired glucose tolerance (oral) Category: Medical Plan: Patient's most recent fasting blood sugars elevated. A1cs have been within decent range. Will work on lifestyle and dietary modifications (3) Morbid obesity: Comment: BMI= 39.6 He is trying to lose weight with dietary restrictions and meds, has been started on Wegovy , which is helping. Code(s): E66.01 - Morbid (severe) obesity due to excess calories Category: Medical Plan: As per HPI patient has had difficulty losing weight. He has been on Wegovy though has seemingly not been too effective for him. He does admit to dietary indiscretion though does go to the gym several times a week. (4) Low testosterone in male: Code(s): R79.89 - Other specified abnormal findings of blood chemistry Category: Medical Plan: As per HPI patient does have low testosterone. Will recheck testosterone consider Urology evaluation for hypogonadism. Orders: Orders Influenza [id number] Immunization 01/25/24 Z23 - Encounter for immunization
[2024-01-25 16:16] VITALS: BP 150/96; PULSE 72; O2SAT 96; BMI 40.6
== END 2024-01-25 16:48 | disposition home or self-care (01) ==
PROVIDERS: PCP Physician Assistant; Visit Provider Physician Assistant
DX: I10 Essential (primary) hypertension (principal); E66.813 Obesity, class 3; Z68.41 Body mass index [BMI] 40.0-44.9, adult; R73.02 Impaired glucose tolerance (oral)

== ENCOUNTER → 2024-01-25 15:51 | Outpatient (BNVA) | payer OTHER, SELFPAY | PROVIDERS: PCP Physician Assistant; Visit Provider Physician Assistant | DX: I10 Essential (primary) hypertension (principal); R73.02 Impaired glucose tolerance (oral); E66.01 Morbid (severe) obesity due to excess calories; Z68.41 Body mass index [BMI] 40.0-44.9, adult; E29.1 Testicular hypofunction; Z79.899 Other long term (current) drug therapy; Z23 Encounter for immunization | CPT/HCPCS: 90471; 90656 ==

== ENCOUNTER 2024-04-14 16:05 | Outpatient (AMB) | payer OTHER, SELFPAY ==
--- OUTSIDE RECORDS SUMMARY | 2024-04-14 16:07 | XMS_ITS ---
Author Organization [facility] Address [address] [place] [address] Care Team Providers Care Receiving Associate Name Role Phone CRISTINO DOWLING Unavailable [phone] REASON FOR VISIT wegovy approval Encounters Encounter Location Date Provider Diagnosis [facility] [address] [place] [address] 12/23/2023 CRISTINO DOWLING PLAN OF TREATMENT No Information Progress Notes * Josefina HAMOB:1980 ( 43 yo M)Acc No.[id number]:12/23/2023 Patient:??Doc HAM :1980?Age:43 Y?Sex:Luis moss Address: [place] [address] * true * Date:??
--- OUTSIDE RECORDS SUMMARY | 2024-04-14 16:07 | XMS_ITS ---
Author Organization [facility] Address [address] [place] [address] Care Team Providers Care Home Health Specialist Name Role Phone CRISTINO DOWLING Unavailable [phone] ALLERGIES No Known Allergies REASON FOR VISIT Pt presents for wt mgt follow up, no concerns MEDICATIONS Medication SIG (Take, Route, Frequency, Duration) Notes Start Date End Date Status Lisinopril 40 MG 1 tablet Orally Once a day Active Advair Diskus 100-50 MCG/ACT 1 puff Inhalation Twice a day Active Montelukast Sodium 10 MG 1 tablet Orally Once a day Active Wegovy 1.7 MG/0.75ML 1.7 mg Subcutaneous weekly for 30 days Active SOCIAL HISTORY Tobacco Use: Social History Observation Description Date Details (start date - stop date) Never Smoker NA - NA Sex Assigned At : Social History Observation Description Sex Assigned At Unknown Tobacco Use/Smoking Question Answer Notes 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 tob: denies drug: denies VITAL SIGNS Heart Rate 76 /min 02/08/2024 Blood pressure systolic 142 mm Hg 02/08/20 24 Blood pressure diastolic 88 mm Hg 024 Weight 262.6 lbs 02/08/2024 BMI 38.78 kg/m2 02/08/2024 Height 69 in 02/08/2024 Oximetry 99 % 02/08/2024 Encounters Encounter Location Date Provider Diagnosis [facility] [address] [place] [address] 02/08/2024 CRISTINO DOWLING Obesity (BMI 30-39.9 ) E66.9 ; BMI 38.0-38.9,adult Z68.38 ; Hypertension, unspecified type I10 ; Intermittent asthma without complication, unspecified asthma severity J45.20 and Depression, unspecified depression type F32.A ASSESSMENTS Encounter Date Diagnosis Assessment Notes Treatment Notes Treatment Clinical Notes Section Notes 02/08/2024 Obesity (BMI 30-39.9) (ICD-10 - E66.9) Bill is a 42 year old male patient with a past medical history of obesity, depression, hypertension, asthma, and sleep apnea on CPAP presenting for a weight management follow up. 10/16/2022:Weight 279, BMI 41.9. Patient educated extensively on lifestyle modifications including high-protein foods, low carbohydrate snacks, healthy fats, sleep hygiene, stress reduction. Provided with educational documentation regarding all of this. Patient will present to the office with a check sheet at next visit. Overall, body composition scale reviewed and patient has well above average muscle mass. He is aware that he will never be within the normal limit for BMI due to this, but he does want to focus on fat loss. Patient was educated on ways to do this. He is potentially considering weight loss medications, although will not be able to submit medications through insurance until 3 consecutive months due to [employer]. Could consider compounded semaglutide. We will discuss with his , as she is also being seen here for weight management by a different provider. 11/17/2022: Weight 280.8, BMI 41.46. Patient extensively educated on the importance of lifestyle. States that for the past month he has been increasing his steps to about 10,000 steps per day which she was congratulated. States that he has cut down to 2 meals per day, ate breakfast, and a late lunch/early dinner. States that it is mostly carbohydrates, but educated to increase protein. Body composition did show increased fat, increased visceral adipose, increased waist circumference and decreased muscle. He is interested in weight loss medications although cannot submit to [employer] until at least 3 consecutive months. We will try to submit in 2 months, until then he will trial compounded semaglutide 0.25 mg. Educated on proper use, and side effects. 12/18/2022: Weight 271.2, BMI 40.04. Patient congratulated on effort. Continues to lose weight. Taking compounded semaglutide 0.25 mg, increasing to 0.5 today. Body composition reviewed showing mostly fat loss, some muscle loss. Educated on high-protein's, and implementing more resistance training as he has been doing well with exercise, but has been more cardio. Patient understanding. 01/16/2023: Weight 278.4 pounds, BMI 41.11. Patient has gained weight since last visit, upon review of body composition scan though he lost 2 pounds of fat, and gained 5 pounds of muscle. Patient is very pleased with this. Lost visceral adipose, and weight circumference. Overall, he was taking compounded semaglutide 0.25 mg, increase to 0.5 last visit but patient did not tolerate well so he discontinued medication, and continues to not be interested in injections. Did review other options, patient interested in Contrave. Educated on proper use, tapering, and side effects. Patient will follow-up in 4 weeks, sooner as needed. 02/16/2023: Weight 281.3, BMI 41.54. Patient states he has been struggling over the past month. Has been very stressed at work, stopped compounded semaglutide and started Contrave, taking 1 pill in the morning, 1 pill at night. Taking without side effect, with compliance. Not noticing any significant appetite suppression yet. Would like to continue to work up dose. Patient states he has also been lacking on his lifestyle changes, would like to focus more on lifestyle modifications as well over the next 4 weeks. Body composition reviewed. 03/19/2023: Weight 280, BMI 41.34. Patient's weight has stayed the same since last visit, states he has been very active, nutrition could be better, but overall is healthy. Is not tolerating Contrave well, having vivid dreams with lack of sleep. Will taper down medication, often taking 2 pills in the morning but forgetting his evening dose. Is still interested in weight loss medications, hesitant for GLP-1's secondary to abdominal pain with semaglutide but is open to trying tirzepatide in April if available. We will follow-up at the end of April, sooner as needed 05/11/2023: Weight 284.4 lbs, BMI 41.99.Has not been taking any medication. Goes to the gym on average 6 hours per week, spends at least 2 of these hours weight training and 3-4 hours on cardio. Has been focusing on protein intake. Explains he drinks only 32 oz of water some days, will work on increasing hydration. Unable to prescribe Zepbound as his insurance will not cover. Discussed semaglutide injections and Wegovy. Patient agreeable to trying although he did have some GI discomfort in the past with semaglutide injections. Prescription sent for Wegovy 0.25 mg, patient aware that there is a national shortage. If he is unable to find this, he will consider making an appointment for semaglutide injections although he explains he is very busy with work lately and commuting to the office is difficult. Weight loss tirzepatide not an option at this time secondary to the medication not being in [employer]'s formulary. 06/22/2023: Weight: 287.3 lbs, BMI: 42.42. He took Wegovy 0.25 for 4 weeks, followed by a 2 week period without medication. Patient advised on improving diet, reducing sweets, choosing low carbohydrate snack, adequate hydration, continuing his weightlifting, walking 3x weekly, sleep hygiene, stress management . We will increase Wegovy to 0.5 mg. Follow up with body scan in 4 weeks. 07/30/23: Weight - 281.1, BMI - 41.51. Patient congratulated on slow and steady weight loss. Patient is taking Wegovy 0.5mg with not ADRs. Still feels like he has trouble with his appetite. Patient would like to increase Wegovy dose to 1 mg weekly. Extensive conversation was had with the patient about lifestyle modifications including increasing his protien, water, and veggtable intake to help with appetitie and decrease snacking. Patient encouraged to continue weight lifiting 3-4 x/week and getting 7-8 hours per sleep. Patient currently seeing therapist to help with stress. Patient agreeable to tx plan. 09/08/2023: Weight 270.9, BMI 40. Patient congratulated on effort, continuing to lose slow, steady weight. Continue Wegovy 1 mg, goal is to increase more protein, and exercise with resistance training 3-4 times per week. Patient sleeping well, drinking water. 10/28/2023: Weight 270, BMI 39.88. Patient congratulated and effort, continuing to lose slow, steady weight, last visit, things have been plateaued, so he expresses some frustration but will increase Wegovy to 1.7 mg. Encouraged to continue with activity. Patient has well above average muscle mass on body scan. 12/22/2023: Weight 268, BMI 39.57. Patient's weight has plateaued since last visit. Continue with Wegovy 1.7, focus more on consistent resistance training at least 3-4 times weekly, and limiting eating out, increasing protein. If still no improvement, could consider increasing to Wegovy 2.4, or eventually switching over to Zepbound pending health insurance coverage. 02/08/2024: Weight 262, BMI 38.78. Patient doing well, continuing to lose slow, steady weight. Continue with Wegovy 1.7 mg. Could consider Zepbound in the future if he feels like he is at a plateau but right now continue to experience positive effect.Patient states that occasionally he does feel down . He is aware that depression can be a side effect of Wegovy. Is following with psychiatry, taking escitalopram 5 mg. Did discuss that if he feels like this is a side effect, the only way to know is to discontinue medication. He is not interested in discontinue indication at this time. Declined suicidal ideation. #Hypertension: Continue lisinopril 40 mg. Patient declined symptoms at this time. Blood pressure continues to be elevated. Following with PCP in regards to this.PCP is recommending weight loss for blood pressure management. #Depression: Taking escitalopram 5 mg with compliance, without any side effects. Patient does follow with psychiatry. #Asthma: Taking montelukast 10 mg, as well as Advair without any concern. Follow-up in 6 weeks, sooner as needed All questions answered to patients satisfaction. Patient verbalized understanding of diagnosis and treatments explained. To call sooner prior to next visit it any questions/concerns arise. Case discussed with collaborating physician Eric Moe who reviewed the assessment and plan. Chart, medications, labs, vital signs reviewed. Dictation was accomplished with the use of [employer] voice recognition software, prone to medical misidentifications and grammatical errors. This is unintentional and the practitioner does try to identify and correct these, but some could still be present. Please do not hesitate to contact practitioner for clarification. 02/08/2024 BMI 38.0-38.9,adult (ICD-10 - Z68.38) Bill is a 42 year old male patient with a past medical history of obesity, depression, hypertension, asthma, and sleep apnea on CPAP presenting for a weight management follow up. 10/16/2022:Weight 279, BMI 41.9. Patient educated extensively on lifestyle modifications including high-protein foods, low carbohydrate snacks, healthy fats, sleep hygiene, stress reduction. Provided with educational documentation regarding all of this. Patient will present to the office with a check sheet at next visit. Overall, body composition scale reviewed and patient has well above average muscle mass. He is aware that he will never be within the normal limit for BMI due to this, but he does want to focus on fat loss. Patient was educated on ways to do this. He is potentially considering weight loss medications, although will not be able to submit medications through insurance until 3 consecutive months due to [employer]. Could consider compounded semaglutide. We will discuss with his , as she is also being seen here for weight management by a different provider. 11/17/2022: Weight 280.8, BMI 41.46. Patient extensively educated on the importance of lifestyle. States that for the past month he has been increasing his steps to about 10,000 steps per day which she was congratulated. States that he has cut down to 2 meals per day, ate breakfast, and a late lunch/early dinner. States that it is mostly carbohydrates, but educated to increase protein. Body composition did show increased fat, increased visceral adipose, increased waist circumference and decreased muscle. He is interested in weight loss medications although cannot submit to [employer] until at least 3 consecutive months. We will try to submit in 2 months, until then he will trial compounded semaglutide 0.25 mg. Educated on proper use, and side effects. 12/18/2022: Weight 271.2, BMI 40.04. Patient congratulated on effort. Continues to lose weight. Taking compounded semaglutide 0.25 mg, increasing to 0.5 today. Body composition reviewed showing mostly fat loss, some muscle loss. Educated on high-protein's, and implementing more resistance training as he has been doing well with exercise, but has been more cardio. Patient understanding. 01/16/2023: Weight 278.4 pounds, BMI 41.11. Patient has gained weight since last visit, upon review of body composition scan though he lost 2 pounds of fat, and gained 5 pounds of muscle. Patient is very pleased with this. Lost visceral adipose, and weight circumference. Overall, he was taking compounded semaglutide 0.25 mg, increase to 0.5 last visit but patient did not tolerate well so he discontinued medication, and continues to not be interested in injections. Did review other options, patient interested in Contrave. Educated on proper use, tapering, and side effects. Patient will follow-up in 4 weeks, sooner as needed. 02/16/2023: Weight 281.3, BMI 41.54. Patient states he has been struggling over the past month. Has been very stressed at work, stopped compounded semaglutide and started Contrave, taking 1 pill in the morning, 1 pill at night. Taking without side effect, with compliance. Not noticing any significant appetite suppression yet. Would like to continue to work up dose. Patient states he has also been lacking on his lifestyle changes, would like to focus more on lifestyle modifications as well over the next 4 weeks. Body composition reviewed. 03/19/2023: Weight 280, BMI 41.34. Patient's weight has stayed the same since last visit, states he has been very active, nutrition could be better, but overall is healthy. Is not tolerating Contrave well, having vivid dreams with lack of sleep. Will taper down medication, often taking 2 pills in the morning but forgetting his evening dose. Is still interested in weight loss medications, hesitant for GLP-1's secondary to abdominal pain with semaglutide but is open to trying tirzepatide in April if available. We will follow-up at the end of April, sooner as needed 05/11/2023: Weight 284.4 lbs, BMI 41.99.Has not been taking any medication. Goes to the gym on average 6 hours per week, spends at least 2 of these hours weight training and 3-4 hours on cardio. Has been focusing on protein intake. Explains he drinks only 32 oz of water some days, will work on increasing hydration. Unable to prescribe Zepbound as his insurance will not cover. Discussed semaglutide injections and Wegovy. Patient agreeable to trying although he did have some GI discomfort in the past with semaglutide injections. Prescription sent for Wegovy 0.25 mg, patient aware that there is a national shortage. If he is unable to find this, he will consider making an appointment for semaglutide injections although he explains he is very busy with work lately and commuting to the office is difficult. Weight loss tirzepatide not an option at this time secondary to the medication not being in [employer]'s formulary. 06/22/2023: Weight: 287.3 lbs, BMI: 42.42. He took Wegovy 0.25 for 4 weeks, followed by a 2 week period without medication. Patient advised on improving diet, reducing sweets, choosing low carbohydrate snack, adequate hydration, continuing his weightlifting, walking 3x weekly, sleep hygiene, stress management . We will increase Wegovy to 0.5 mg. Follow up with body scan in 4 weeks. 07/30/23: Weight - 281.1, BMI - 41.51. Patient congratulated on slow and steady weight loss. Patient is taking Wegovy 0.5mg with not ADRs. Still feels like he has trouble with his appetite. Patient would like to increase Wegovy dose to 1 mg weekly. Extensive conversation was had with the patient about lifestyle modifications including increasing his protien, water, and veggtable intake to help with appetitie and decrease snacking. Patient encouraged to continue weight lifiting 3-4 x/week and getting 7-8 hours per sleep. Patient currently seeing therapist to help with stress. Patient agreeable to tx plan. 09/08/2023: Weight 270.9, BMI 40. Patient congratulated on effort, continuing to lose slow, steady weight. Continue Wegovy 1 mg, goal is to increase more protein, and exercise with resistance training 3-4 times per week. Patient sleeping well, drinking water. 10/28/2023: Weight 270, BMI 39.88. Patient congratulated and effort, continuing to lose slow, steady weight, last visit, things have been plateaued, so he expresses some frustration but will increase Wegovy to 1.7 mg. Encouraged to continue with activity. Patient has well above average muscle mass on body scan. 12/22/2023: Weight 268, BMI 39.57. Patient's weight has plateaued since last visit. Continue with Wegovy 1.7, focus more on consistent resistance training at least 3-4 times weekly, and limiting eating out, increasing protein. If still no improvement, could consider increasing to Wegovy 2.4, or eventually switching over to Zepbound pending health insurance coverage. 02/08/2024: Weight 262, BMI 38.78. Patient doing well, continuing to lose slow, steady weight. Continue with Wegovy 1.7 mg. Could consider Zepbound in the future if he feels like he is at a plateau but right now continue to experience positive effect.Patient states that occasionally he does feel down . He is aware that depression can be a side effect of Wegovy. Is following with psychiatry, taking escitalopram 5 mg. Did discuss that if he feels like this is a side effect, the only way to know is to discontinue medication. He is not interested in discontinue indication at this time. Declined suicidal ideation. #Hypertension: Continue lisinopril 40 mg. Patient declined symptoms at this time. Blood pressure continues to be elevated. Following with PCP in regards to this.PCP is recommending weight loss for blood pressure management. #Depression: Taking escitalopram 5 mg with compliance, without any side effects. Patient does follow with psychiatry. #Asthma: Taking montelukast 10 mg, as well as Advair without any concern. Follow-up in 6 weeks, sooner as needed All questions answered to patients satisfaction. Patient verbalized understanding of diagnosis and treatments explained. To call sooner prior to next visit it any questions/concerns arise. Case discussed with collaborating physician Eric Moe who reviewed the assessment and plan. Chart, medications, labs, vital signs reviewed. Dictation was accomplished with the use of [employer] voice recognition software, prone to medical misidentifications and grammatical errors. This is unintentional and the practitioner does try to identify and correct these, but some could still be present. Please do not hesitate to contact practitioner for clarification. 02/08/2024 Hypertension, unspecified type (ICD-10 - I10) Bill is a 42 year old male patient with a past medical history of obesity, depression, hypertension, asthma, and sleep apnea on CPAP presenting for a weight management follow up. 10/16/2022:Weight 279, BMI 41.9. Patient educated extensively on lifestyle modifications including high-protein foods, low carbohydrate snacks, healthy fats, sleep hygiene, stress reduction. Provided with educational documentation regarding all of this. Patient will present to the office with a check sheet at next visit. Overall, body composition scale reviewed and patient has well above average muscle mass. He is aware that he will never be within the normal limit for BMI due to this, but he does want to focus on fat loss. Patient was educated on ways to do this. He is potentially considering weight loss medications, although will not be able to submit medications through insurance until 3 consecutive months due to [employer]. Could consider compounded semaglutide. We will discuss with his , as she is also being seen here for weight management by a different provider. 11/17/2022: Weight 280.8, BMI 41.46. Patient extensively educated on the importance of lifestyle. States that for the past month he has been increasing his steps to about 10,000 steps per day which she was congratulated. States that he has cut down to 2 meals per day, ate breakfast, and a late lunch/early dinner. States that it is mostly carbohydrates, but educated to increase protein. Body composition did show increased fat, increased visceral adipose, increased waist circumference and decreased muscle. He is interested in weight loss medications although cannot submit to [employer] until at least 3 consecutive months. We will try to submit in 2 months, until then he will trial compounded semaglutide 0.25 mg. Educated on proper use, and side effects. 12/18/2022: Weight 271.2, BMI 40.04. Patient congratulated on effort. Continues to lose weight. Taking compounded semaglutide 0.25 mg, increasing to 0.5 today. Body composition reviewed showing mostly fat loss, some muscle loss. Educated on high-protein's, and implementing more resistance training as he has been doing well with exercise, but has been more cardio. Patient understanding. 01/16/2023: Weight 278.4 pounds, BMI 41.11. Patient has gained weight since last visit, upon review of body composition scan though he lost 2 pounds of fat, and gained 5 pounds of muscle. Patient is very pleased with this. Lost visceral adipose, and weight circumference. Overall, he was taking compounded semaglutide 0.25 mg, increase to 0.5 last visit but patient did not tolerate well so he discontinued medication, and continues to not be interested in injections. Did review other options, patient interested in Contrave. Educated on proper use, tapering, and side effects. Patient will follow-up in 4 weeks, sooner as needed. 02/16/2023: Weight 281.3, BMI 41.54. Patient states he has been struggling over the past month. Has been very stressed at work, stopped compounded semaglutide and started Contrave, taking 1 pill in the morning, 1 pill at night. Taking without side effect, with compliance. Not noticing any significant appetite suppression yet. Would like to continue to work up dose. Patient states he has also been lacking on his lifestyle changes, would like to focus more on lifestyle modifications as well over the next 4 weeks. Body composition reviewed. 03/19/2023: Weight 280, BMI 41.34. Patient's weight has stayed the same since last visit, states he has been very active, nutrition could be better, but overall is healthy. Is not tolerating Contrave well, having vivid dreams with lack of sleep. Will taper down medication, often taking 2 pills in the morning but forgetting his evening dose. Is still interested in weight loss medications, hesitant for GLP-1's secondary to abdominal pain with semaglutide but is open to trying tirzepatide in April if available. We will follow-up at the end of April, sooner as needed 05/11/2023: Weight 284.4 lbs, BMI 41.99.Has not been taking any medication. Goes to the gym on average 6 hours per week, spends at least 2 of these hours weight training and 3-4 hours on cardio. Has been focusing on protein intake. Explains he drinks only 32 oz of water some days, will work on increasing hydration. Unable to prescribe Zepbound as his insurance will not cover. Discussed semaglutide injections and Wegovy. Patient agreeable to trying although he did have some GI discomfort in the past with semaglutide injections. Prescription sent for Wegovy 0.25 mg, patient aware that there is a national shortage. If he is unable to find this, he will consider making an appointment for semaglutide injections although he explains he is very busy with work lately and commuting to the office is difficult. Weight loss tirzepatide not an option at this time secondary to the medication not being in [facility]. 06/22/2023: Weight: 287.3 lbs, BMI: 42.42. He took Wegovy 0.25 for 4 weeks, followed by a 2 week period without medication. Patient advised on improving diet, reducing sweets, choosing low carbohydrate snack, adequate hydration, continuing his weightlifting, walking 3x weekly, sleep hygiene, stress management . We will increase Wegovy to 0.5 mg. Follow up with body scan in 4 weeks. 07/30/23: Weight - 281.1, BMI - 41.51. Patient congratulated on slow and steady weight loss. Patient is taking Wegovy 0.5mg with not ADRs. Still feels like he has trouble with his appetite. Patient would like to increase Wegovy dose to 1 mg weekly. Extensive conversation was had with the patient about lifestyle modifications including increasing his protien, water, and veggtable intake to help with appetitie and decrease snacking. Patient encouraged to continue weight lifiting 3-4 x/week and getting 7-8 hours per sleep. Patient currently seeing therapist to help with stress. Patient agreeable to tx plan. 09/08/2023: Weight 270.9, BMI 40. Patient congratulated on effort, continuing to lose slow, steady weight. Continue Wegovy 1 mg, goal is to increase more protein, and exercise with resistance training 3-4 times per week. Patient sleeping well, drinking water. 10/28/2023: Weight 270, BMI 39.88. Patient congratulated and effort, continuing to lose slow, steady weight, last visit, things have been plateaued, so he expresses some frustration but will increase Wegovy to 1.7 mg. Encouraged to continue with activity. Patient has well above average muscle mass on body scan. 12/22/2023: Weight 268, BMI 39.57. Patient's weight has plateaued since last visit. Continue with Wegovy 1.7, focus more on consistent resistance training at least 3-4 times weekly, and limiting eating out, increasing protein. If still no improvement, could consider increasing to Wegovy 2.4, or eventually switching over to Zepbound pending health insurance coverage. 02/08/2024: Weight 262, BMI 38.78. Patient doing well, continuing to lose slow, steady weight. Continue with Wegovy 1.7 mg. Could consider Zepbound in the future if he feels like he is at a plateau but right now continue to experience positive effect.Patient states that occasionally he does feel down . He is aware that depression can be a side effect of Wegovy. Is following with psychiatry, taking escitalopram 5 mg. Did discuss that if he feels like this is a side effect, the only way to know is to discontinue medication. He is not interested in discontinue indication at this time. Declined suicidal ideation. #Hypertension: Continue lisinopril 40 mg. Patient declined symptoms at this time. Blood pressure continues to be elevated. Following with PCP in regards to this.PCP is recommending weight loss for blood pressure management. #Depression: Taking escitalopram 5 mg with compliance, without any side effects. Patient does follow with psychiatry. #Asthma: Taking montelukast 10 mg, as well as Advair without any concern. Follow-up in 6 weeks, sooner as needed All questions answered to patients satisfaction. Patient verbalized understanding of diagnosis and treatments explained. To call sooner prior to next visit it any questions/concerns arise. Case discussed with collaborating physician Eric Moe who reviewed the assessment and plan. Chart, medications, labs, vital signs reviewed. Dictation was accomplished with the use of [employer] voice recognition software, prone to medical misidentifications and grammatical errors. This is unintentional and the practitioner does try to identify and correct these, but some could still be present. Please do not hesitate to contact practitioner for clarification. 02/08/2024 Intermittent asthma without complication, unspecified asthma severity (ICD-10 - J45.20) Bill is a 42 year old male patient with a past medical history of obesity, depression, hypertension, asthma, and sleep apnea on CPAP presenting for a weight management follow up. 10/16/2022:Weight 279, BMI 41.9. Patient educated extensively on lifestyle modifications including high-protein foods, low carbohydrate snacks, healthy fats, sleep hygiene, stress reduction. Provided with educational documentation regarding all of this. Patient will present to the office with a check sheet at next visit. Overall, body composition scale reviewed and patient has well above average muscle mass. He is aware that he will never be within the normal limit for BMI due to this, but he does want to focus on fat loss. Patient was educated on ways to do this. He is potentially considering weight loss medications, although will not be able to submit medications through insurance until 3 consecutive months due to [employer] [facility]. Could consider compounded semaglutide. We will discuss with his , as she is also being seen here for weight management by a different provider. 11/17/2022: Weight 280.8, BMI 41.46. Patient extensively educated on the importance of lifestyle. States that for the past month he has been increasing his steps to about 10,000 steps per day which she was congratulated. States that he has cut down to 2 meals per day, ate breakfast, and a late lunch/early dinner. States that it is mostly carbohydrates, but educated to increase protein. Body composition did show increased fat, increased visceral adipose, increased waist circumference and decreased muscle. He is interested in weight loss medications although cannot submit to [employer] [facility] until at least 3 consecutive months. We will try to submit in 2 months, until then he will trial compounded semaglutide 0.25 mg. Educated on proper use, and side effects. 12/18/2022: Weight 271.2, BMI 40.04. Patient congratulated on effort. Continues to lose weight. Taking compounded semaglutide 0.25 mg, increasing to 0.5 today. Body composition reviewed showing mostly fat loss, some muscle loss. Educated on high-protein's, and implementing more resistance training as he has been doing well with exercise, but has been more cardio. Patient understanding. 01/16/2023: Weight 278.4 pounds, BMI 41.11. Patient has gained weight since last visit, upon review of body composition scan though he lost 2 pounds of fat, and gained 5 pounds of muscle. Patient is very pleased with this. Lost visceral adipose, and weight circumference. Overall, he was taking compounded semaglutide 0.25 mg, increase to 0.5 last visit but patient did not tolerate well so he discontinued medication, and continues to not be interested in injections. Did review other options, patient interested in Contrave. Educated on proper use, tapering, and side effects. Patient will follow-up in 4 weeks, sooner as needed. 02/16/2023: Weight 281.3, BMI 41.54. Patient states he has been struggling over the past month. Has been very stressed at work, stopped compounded semaglutide and started Contrave, taking 1 pill in the morning, 1 pill at night. Taking without side effect, with compliance. Not noticing any significant appetite suppression yet. Would like to continue to work up dose. Patient states he has also been lacking on his lifestyle changes, would like to focus more on lifestyle modifications as well over the next 4 weeks. Body composition reviewed. 03/19/2023: Weight 280, BMI 41.34. Patient's weight has stayed the same since last visit, states he has been very active, nutrition could be better, but overall is healthy. Is not tolerating Contrave well, having vivid dreams with lack of sleep. Will taper down medication, often taking 2 pills in the morning but forgetting his evening dose. Is still interested in weight loss medications, hesitant for GLP-1's secondary to abdominal pain with semaglutide but is open to trying tirzepatide in April if available. We will follow-up at the end of April, sooner as needed 05/11/2023: Weight 284.4 lbs, BMI 41.99.Has not been taking any medication. Goes to the gym on average 6 hours per week, spends at least 2 of these hours weight training and 3-4 hours on cardio. Has been focusing on protein intake. Explains he drinks only 32 oz of water some days, will work on increasing hydration. Unable to prescribe Zepbound as his insurance will not cover. Discussed semaglutide injections and Wegovy. Patient agreeable to trying although he did have some GI discomfort in the past with semaglutide injections. Prescription sent for Wegovy 0.25 mg, patient aware that there is a national shortage. If he is unable to find this, he will consider making an appointment for semaglutide injections although he explains he is very busy with work lately and commuting to the office is difficult. Weight loss tirzepatide not an option at this time secondary to the medication not being in [facility]. 06/22/2023: Weight: 287.3 lbs, BMI: 42.42. He took Wegovy 0.25 for 4 weeks, followed by a 2 week period without medication. Patient advised on improving diet, reducing sweets, choosing low carbohydrate snack, adequate hydration, continuing his weightlifting, walking 3x weekly, sleep hygiene, stress management . We will increase Wegovy to 0.5 mg. Follow up with body scan in 4 weeks. 07/30/23: Weight - 281.1, BMI - 41.51. Patient congratulated on slow and steady weight loss. Patient is taking Wegovy 0.5mg with not ADRs. Still feels like he has trouble with his appetite. Patient would like to increase Wegovy dose to 1 mg weekly. Extensive conversation was had with the patient about lifestyle modifications including increasing his protien, water, and veggtable intake to help with appetitie and decrease snacking. Patient encouraged to continue weight lifiting 3-4 x/week and getting 7-8 hours per sleep. Patient currently seeing therapist to help with stress. Patient agreeable to tx plan. 09/08/2023: Weight 270.9, BMI 40. Patient congratulated on effort, continuing to lose slow, steady weight. Continue Wegovy 1 mg, goal is to increase more protein, and exercise with resistance training 3-4 times per week. Patient sleeping well, drinking water. 10/28/2023: Weight 270, BMI 39.88. Patient congratulated and effort, continuing to lose slow, steady weight, last visit, things have been plateaued, so he expresses some frustration but will increase Wegovy to 1.7 mg. Encouraged to continue with activity. Patient has well above average muscle mass on body scan. 12/22/2023: Weight 268, BMI 39.57. Patient's weight has plateaued since last visit. Continue with Wegovy 1.7, focus more on consistent resistance training at least 3-4 times weekly, and limiting eating out, increasing protein. If still no improvement, could consider increasing to Wegovy 2.4, or eventually switching over to Zepbound pending health insurance coverage. 02/08/2024: Weight 262, BMI 38.78. Patient doing well, continuing to lose slow, steady weight. Continue with Wegovy 1.7 mg. Could consider Zepbound in the future if he feels like he is at a plateau but right now continue to experience positive effect.Patient states that occasionally he does feel down . He is aware that depression can be a side effect of Wegovy. Is following with psychiatry, taking escitalopram 5 mg. Did discuss that if he feels like this is a side effect, the only way to know is to discontinue medication. He is not interested in discontinue indication at this time. Declined suicidal ideation. #Hypertension: Continue lisinopril 40 mg. Patient declined symptoms at this time. Blood pressure continues to be elevated. Following with PCP in regards to this.PCP is recommending weight loss for blood pressure management. #Depression: Taking escitalopram 5 mg with compliance, without any side effects. Patient does follow with psychiatry. #Asthma: Taking montelukast 10 mg, as well as Advair without any concern. Follow-up in 6 weeks, sooner as needed All questions answered to patients satisfaction. Patient verbalized understanding of diagnosis and treatments explained. To call sooner prior to next visit it any questions/concerns arise. Case discussed with collaborating physician Eric Moe who reviewed the assessment and plan. Chart, medications, labs, vital signs reviewed. Dictation was accomplished with the use of [employer] voice recognition software, prone to medical misidentifications and grammatical errors. This is unintentional and the practitioner does try to identify and correct these, but some could still be present. Please do not hesitate to contact practitioner for clarification. 02/08/2024 Depression, unspecified depression type (ICD-10 - F32.A) Bill is a 42 year old male patient with a past medical history of obesity, depression, hypertension, asthma, and sleep apnea on CPAP presenting for a weight management follow up. 10/16/2022:Weight 279, BMI 41.9. Patient educated extensively on lifestyle modifications including high-protein foods, low carbohydrate snacks, healthy fats, sleep hygiene, stress reduction. Provided with educational documentation regarding all of this. Patient will present to the office with a check sheet at next visit. Overall, body composition scale reviewed and patient has well above average muscle mass. He is aware that he will never be within the normal limit for BMI due to this, but he does want to focus on fat loss. Patient was educated on ways to do this. He is potentially considering weight loss medications, although will not be able to submit medications through insurance until 3 consecutive months due to [employer]. Could consider compounded semaglutide. We will discuss with his , as she is also being seen here for weight management by a different provider. 11/17/2022: Weight 280.8, BMI 41.46. Patient extensively educated on the importance of lifestyle. States that for the past month he has been increasing his steps to about 10,000 steps per day which she was congratulated. States that he has cut down to 2 meals per day, ate breakfast, and a late lunch/early dinner. States that it is mostly carbohydrates, but educated to increase protein. Body composition did show increased fat, increased visceral adipose, increased waist circumference and decreased muscle. He is interested in weight loss medications although cannot submit to [employer] [facility] until at least 3 consecutive months. We will try to submit in 2 months, until then he will trial compounded semaglutide 0.25 mg. Educated on proper use, and side effects. 12/18/2022: Weight 271.2, BMI 40.04. Patient congratulated on effort. Continues to lose weight. Taking compounded semaglutide 0.25 mg, increasing to 0.5 today. Body composition reviewed showing mostly fat loss, some muscle loss. Educated on high-protein's, and implementing more resistance training as he has been doing well with exercise, but has been more cardio. Patient understanding. 01/16/2023: Weight 278.4 pounds, BMI 41.11. Patient has gained weight since last visit, upon review of body composition scan though he lost 2 pounds of fat, and gained 5 pounds of muscle. Patient is very pleased with this. Lost visceral adipose, and weight circumference. Overall, he was taking compounded semaglutide 0.25 mg, increase to 0.5 last visit but patient did not tolerate well so he discontinued medication, and continues to not be interested in injections. Did review other options, patient interested in Contrave. Educated on proper use, tapering, and side effects. Patient will follow-up in 4 weeks, sooner as needed. 02/16/2023: Weight 281.3, BMI 41.54. Patient states he has been struggling over the past month. Has been very stressed at work, stopped compounded semaglutide and started Contrave, taking 1 pill in the morning, 1 pill at night. Taking without side effect, with compliance. Not noticing any significant appetite suppression yet. Would like to continue to work up dose. Patient states he has also been lacking on his lifestyle changes, would like to focus more on lifestyle modifications as well over the next 4 weeks. Body composition reviewed. 03/19/2023: Weight 280, BMI 41.34. Patient's weight has stayed the same since last visit, states he has been very active, nutrition could be better, but overall is healthy. Is not tolerating Contrave well, having vivid dreams with lack of sleep. Will taper down medication, often taking 2 pills in the morning but forgetting his evening dose. Is still interested in weight loss medications, hesitant for GLP-1's secondary to abdominal pain with semaglutide but is open to trying tirzepatide in April if available. We will follow-up at the end of April, sooner as needed 05/11/2023: Weight 284.4 lbs, BMI 41.99.Has not been taking any medication. Goes to the gym on average 6 hours per week, spends at least 2 of these hours weight training and 3-4 hours on cardio. Has been focusing on protein intake. Explains he drinks only 32 oz of water some days, will work on increasing hydration. Unable to prescribe Zepbound as his insurance will not cover. Discussed semaglutide injections and Wegovy. Patient agreeable to trying although he did have some GI discomfort in the past with semaglutide injections. Prescription sent for Wegovy 0.25 mg, patient aware that there is a national shortage. If he is unable to find this, he will consider making an appointment for semaglutide injections although he explains he is very busy with work lately and commuting to the office is difficult. Weight loss tirzepatide not an option at this time secondary to the medication not being in [facility]. 06/22/2023: Weight: 287.3 lbs, BMI: 42.42. He took Wegovy 0.25 for 4 weeks, followed by a 2 week period without medication. Patient advised on improving diet, reducing sweets, choosing low carbohydrate snack, adequate hydration, continuing his weightlifting, walking 3x weekly, sleep hygiene, stress management . We will increase Wegovy to 0.5 mg. Follow up with body scan in 4 weeks. 07/30/23: Weight - 281.1, BMI - 41.51. Patient congratulated on slow and steady weight loss. Patient is taking Wegovy 0.5mg with not ADRs. Still feels like he has trouble with his appetite. Patient would like to increase Wegovy dose to 1 mg weekly. Extensive conversation was had with the patient about lifestyle modifications including increasing his protien, water, and veggtable intake to help with appetitie and decrease snacking. Patient encouraged to continue weight lifiting 3-4 x/week and getting 7-8 hours per sleep. Patient currently seeing therapist to help with stress. Patient agreeable to tx plan. 09/08/2023: Weight 270.9, BMI 40. Patient congratulated on effort, continuing to lose slow, steady weight. Continue Wegovy 1 mg, goal is to increase more protein, and exercise with resistance training 3-4 times per week. Patient sleeping well, drinking water. 10/28/2023: Weight 270, BMI 39.88. Patient congratulated and effort, continuing to lose slow, steady weight, last visit, things have been plateaued, so he expresses some frustration but will increase Wegovy to 1.7 mg. Encouraged to continue with activity. Patient has well above average muscle mass on body scan. 12/22/2023: Weight 268, BMI 39.57. Patient's weight has plateaued since last visit. Continue with Wegovy 1.7, focus more on consistent resistance training at least 3-4 times weekly, and limiting eating out, increasing protein. If still no improvement, could consider increasing to Wegovy 2.4, or eventually switching over to Zepbound pending health insurance coverage. 02/08/2024: Weight 262, BMI 38.78. Patient doing well, continuing to lose slow, steady weight. Continue with Wegovy 1.7 mg. Could consider Zepbound in the future if he feels like he is at a plateau but right now continue to experience positive effect.Patient states that occasionally he does feel down . He is aware that depression can be a side effect of Wegovy. Is following with psychiatry, taking escitalopram 5 mg. Did discuss that if he feels like this is a side effect, the only way to know is to discontinue medication. He is not interested in discontinue indication at this time. Declined suicidal ideation. #Hypertension: Continue lisinopril 40 mg. Patient declined symptoms at this time. Blood pressure continues to be elevated. Following with PCP in regards to this.PCP is recommending weight loss for blood pressure management. #Depression: Taking escitalopram 5 mg with compliance, without any side effects. Patient does follow with psychiatry. #Asthma: Taking montelukast 10 mg, as well as Advair without any concern. Follow-up in 6 weeks, sooner as needed All questions answered to patients satisfaction. Patient verbalized understanding of diagnosis and treatments explained. To call sooner prior to next visit it any questions/concerns arise. Case discussed with collaborating physician Eric Moe who reviewed the assessment and plan. Chart, medications, labs, vital signs reviewed. Dictation was accomplished with the use of [employer] voice recognition software, prone to medical misidentifications and grammatical errors. This is unintentional and the practitioner does try to identify and correct these, but some could still be present. Please do not hesitate to contact practitioner for clarification. PLAN OF TREATMENT Medication Medication Name Sig Start Date Stop Date Notes Wegovy 1.7 MG/0.75ML 1.7 mg Subcutaneous weekly for 30 days Progress Notes * Josefina HAMOB:1980 ( 43 yo M)Acc No.[id number]:02/08/2024 Patient:??Bill HAM Provider:??CRISTINO DOWLING PA-C :1980?Age:43 Y?Sex:Luis le Date:02/08/2024 Address: [id number] Subjective: * Chief Complaints: * ?1. Pt presents for wt mgt follow up, no concerns. * HPI: ?Constitutional:? Bill is a pleasant 43-year-old male who presents the office for a weight management follow-up. Last seen 12/22/2023. Currently taking Wegovy 1.7 mg with compliance, without any side effects. Patient states has been going to the gym 4 times weekly, eating much better, cutting out carbs, and has better water intake. Body scan showing mostly fat loss with no muscle loss. Patient is 80 pounds of muscle on his body.Interested in continuing with Wegovy 1.7 mg as he is noticing appetite suppression. * ROS:?Constitutional: Patient denies any excessive fatigue with exercise, no weight loss, no fever, no night sweats, no changes in sleep. ???Eyes: No eye discharge, no itching, no redness, no vision changes. Advised the significance of regular eye exams to screen for glaucoma and other eye problems. ???Ear nose throat: No ear pain, No sore throat, no postnasal drip, no runny nose, no sneezing, no hearing changes ???Cardiovascular: No chest pain, no dyspnea on exertion, no PND, no orthopnea, no irregular pulse, no palpitations, no claudication, no diaphoresis, no claudication. ???Respiratory: No chronic cough, no hemoptysis, no sputum, no wheezing, no SOB, no pleuritic pain. ???GI: No diarrhea, no constipation, no blood in the stools, no pain associated with eating, no indigestion, no difficulty swallowing, no appetite change. ???Genitourinary: No painful urination, no hesitancy, no blood in the urine, no incontinence, no frequency, no urgency, no abnormal discharge. ???Musculoskeletal: No back pain, no joint pain, no limitations to walking and running, no joint deformity, no joint stiffness, no muscle weakness ???Integumentary: No new skin rash. No new changes in skin moles, no pruritis, no color change. ???Neurological: No history of seizures, no memory loss, no language dysfunction, no inability to concentrate, no localized weakness, no sensation loss, no confusion, no dizziness, no tremor, no numbness, no tingling. ???Psychiatric: no anxiety, no depression, no suicidal thoughts, feels safe at home. ???Endocrine: No polyuria, no polyphagia, no polydipsia. No heat/cold intolerance, no excesss thirst. ???Hematological: No easy bruising or bleeding, no lymph node swelling. * Medical History:??Depression , Hypertension, Asthma, sleep apnea on CPAP, Obesity. * Surgical History:??Denies Pa st Surgical History. * Hospitalization/Major Diagno stic Procedure:??Denies Past Hospitalization. * Family History:??Father: ali ve.??Mother: alive.??Maternal Grand Father: diagnosed with Unspecified nonpsychotic mental disorder following organic brain damage.??1 brother(s) . 1 son(s) , 1 daughter(s) - healthy. .?? mom hx dm. 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 * Medications:??Taking Wegovy 1.7 MG/0.75ML Solution Auto-injector 1.7 mg Subcutaneous weekly , Taking Advair Diskus 100-50 MCG/ACT Aerosol Powder Breath Activated 1 puff Inhalation Twice a day , Taking Lisinopril 40 MG Tablet 1 tablet Orally Once a day , Taking Montelukast Sodium 10 MG Tablet 1 tablet Orally Once a day , Medication List reviewed and reconciled with the patient * Allergies:??N.K.D.A. Objective: * Vitals:??HR:76/min, BP:142/8 8mm Hg, Wt:262.6lbs, BMI:38.78Index, Ht: 69 in, Oxygen sat %:99%. * Physical Examination:?General: Age appropriate 42 year old male, well appearing, no acute distress, speaking in full sentences without respiratory compromise. Well groomed, well developed. Alert, Interactive. ?Skin: Warm, dry and intact. No lesions/rashes/erythema. ? HEENT: Normocephalic/atraumatic. EOMI intact. PERRLA. Vision intact. No ptosis or lid lag. Nares without discharge or inflammation. ?Neck/Thyroid: Supple, with no lymphadenopathy. Full ROM. ?Lung: Clear to auscultation bilaterally, no wheezes, rales or rhonchi. No barrel chest. Equal chest rise and fall bilaterally. ?Cardiac: S1 and S2 appreciated. No murmurs/rubs or gallops. ?Abdomen: No visble masses. ? Extremities: Bilateral lower extremities with no edema. Equal tone bilaterally. ?MSK: Moving all four extremeties. ?Neuro: CN II-XI grossly intact. ?Psych: Stable mood and affect. Assessment: * Assessment: 1.??Obesity (BMI 30-39.9) - E66.9 (Primary)??2.??BMI 38.0-38.9,adult - Z68.38??3.??Hypertension, unspecified type - I10??4.??Intermittent asthma without complication, unspecified asthma severity - J45.20??5.??Depression, unspecified depression type - F32.A?? Bill is a 42 year old male pa tient with a past medical history of obesity, depression, hypertension, asthma, and sleep apnea on CPAP presenting for a weight management follow up. 10/16/2022:Weight 279, BMI 41.9. Patient educated extensively on lifestyle modifications including high-protein foods, low carbohydrate snacks, healthy fats, sleep hygiene, stress reduction. Provided with educational documentation regarding all of this. Patient will present to the office with a check sheet at next visit. Overall, body composition scale reviewed and patient has well above average muscle mass. He is aware that he will never be within the normal limit for BMI due to this, but he does want to focus on fat loss. Patient was educated on ways to do this. He is potentially considering weight loss medications, although will not be able to submit medications through insurance until 3 consecutive months due to [employer]. Could consider compounded semaglutide. We will discuss with his , as she is also being seen here for weight management by a different provider. 11/17/2022: Weight 280.8, BMI 41.46. Patient extensively educated on the importance of lifestyle. States that for the past month he has been increasing his steps to about 10,000 steps per day which she was congratulated. States that he has cut down to 2 meals per day, ate breakfast, and a late lunch/early dinner. States that it is mostly carbohydrates, but educated to increase protein. Body composition did show increased fat, increased visceral adipose, increased waist circumference and decreased muscle. He is interested in weight loss medications although cannot submit to [employer] until at least 3 consecutive months. We will try to submit in 2 months, until then he will trial compounded semaglutide 0.25 mg. Educated on proper use, and side effects. 12/18/2022: Weight 271.2, BMI 40.04. Patient congratulated on effort. Continues to lose weight. Taking compounded semaglutide 0.25 mg, increasing to 0.5 today. Body composition reviewed showing mostly fat loss, some muscle loss. Educated on high-protein's, and implementing more resistance training as he has been doing well with exercise, but has been more cardio. Patient understanding. 01/16/2023: Weight 278.4 pounds, BMI 41.11. Patient has gained weight since last visit, upon review of body composition scan though he lost 2 pounds of fat, and gained 5 pounds of muscle. Patient is very pleased with this. Lost visceral adipose, and weight circumference. Overall, he was taking compounded semaglutide 0.25 mg, increase to 0.5 last visit but patient did not tolerate well so he discontinued medication, and continues to not be interested in injections. Did review other options, patient interested in Contrave. Educated on proper use, tapering, and side effects. Patient will follow-up in 4 weeks, sooner as needed. 02/16/2023: Weight 281.3, BMI 41.54. Patient states he has been struggling over the past month. Has been very stressed at work, stopped compounded semaglutide and started Contrave, taking 1 pill in the morning, 1 pill at night. Taking without side effect, with compliance. Not noticing any significant appetite suppression yet. Would like to continue to work up dose. Patient states he has also been lacking on his lifestyle changes, would like to focus more on lifestyle modifications as well over the next 4 weeks. Body composition reviewed. 03/19/2023: Weight 280, BMI 41.34. Patient's weight has stayed the same since last visit, states he has been very active, nutrition could be better, but overall is healthy. Is not tolerating Contrave well, having vivid dreams with lack of sleep. Will taper down medication, often taking 2 pills in the morning but forgetting his evening dose. Is still interested in weight loss medications, hesitant for GLP- 1's secondary to abdominal pain with semaglutide but is open to trying tirzepatide in April if available. We will follow-up at the end of April, sooner as needed 05/11/2023: Weight 284.4 lbs, BMI 41.99.Has not been taking any medication. Goes to the gym on average 6 hours per week, spends at least 2 of these hours weight training and 3-4 hours on cardio. Has been focusing on protein intake. Explains he drinks only 32 oz of water some days, will work on increasing hydration. Unable to prescribe Zepbound as his insurance will not cover. Discussed semaglutide injections and Wegovy. Patient agreeable to trying although he did have some GI discomfort in the past with semaglutide injections. Prescription sent for Wegovy 0.25 mg, patient aware that there is a national shortage. If he is unable to find this, he will consider making an appointment for semaglutide injections although he explains he is very busy with work lately and commuting to the office is difficult. Weight loss tirzepatide not an option at this time secondary to the medication not being in [employer]'s formulary. 06/22/2023: Weight: 287.3 lbs, BMI: 42.42. He took Wegovy 0.25 for 4 weeks, followed by a 2 week period without medication. Patient advised on improving diet, reducing sweets, choosing low carbohydrate snack, adequate hydration, continuing his weightlifting, walking 3x weekly, sleep hygiene, stress management . We will increase Wegovy to 0.5 mg. Follow up with body scan in 4 weeks. 07/30/23: Weight - 281.1, BMI - 41.51. Patient congratulated on slow and steady weight loss. Patient is taking Wegovy 0.5mg with not ADRs. Still feels like he has trouble with his appetite. Patient would like to increase Wegovy dose to 1 mg weekly. Extensive conversation was had with the patient about lifestyle modifications including increasing his protien, water, and veggtable intake to help with appetitie and decrease snacking. Patient encouraged to continue weight lifiting 3-4 x/week and getting 7-8 hours per sleep. Patient currently seeing therapist to help with stress. Patient agreeable to tx plan. 09/08/2023: Weight 270.9, BMI 40. Patient congratulated on effort, continuing to lose slow, steady weight. Continue Wegovy 1 mg, goal is to increase more protein, and exercise with resistance training 3-4 times per week. Patient sleeping well, drinking water. 10/28/2023: Weight 270, BMI 39.88. Patient congratulated and effort, continuing to lose slow, steady weight, last visit, things have been plateaued, so he expresses some frustration but will increase Wegovy to 1.7 mg. Encouraged to continue with activity. Patient has well above average muscle mass on body scan. 12/22/2023: Weight 268, BMI 39.57. Patient's weight has plateaued since last visit. Continue with Wegovy 1.7, focus more on consistent resistance training at least 3-4 times weekly, and limiting eating out, increasing protein. If still no improvement, could consider increasing to Wegovy 2.4, or eventually switching over to Zepbound pending health insurance coverage. 02/08/2024: Weight 262, BMI 38.78. Patient doing well, continuing to lose slow, steady weight. Continue with Wegovy 1.7 mg. Could consider Zepbound in the future if he feels like he is at a plateau but right now continue to experience positive effect.Patient states that occasionally he does feel down . He is aware that depression can be a side effect of Wegovy. Is following with psychiatry, taking escitalopram 5 mg. Did discuss that if he feels like this is a side effect, the only way to know is to discontinue medication. He is not interested in discontinue indication at this time. Declined suicidal ideation. #Hypertension: Continue lisinopril 40 mg. Patient declined symptoms at this time. Blood pressure continues to be elevated. Following with PCP in regards to this.PCP is recommending weight loss for blood pressure management. #Depression: Taking escitalopram 5 mg with compliance, without any side effects. Patient does follow with psychiatry. #Asthma: Taking montelukast 10 mg, as well as Advair without any concern. Follow-up in 6 weeks, sooner as needed All questions answered to patients satisfaction. Patient verbalized understanding of diagnosis and treatments explained. To call sooner prior to next visit it any questions/concerns arise. Case discussed with collaborating physician Eric Moe who reviewed the assessment and plan. Chart, medications, labs, vital signs reviewed. Dictation was accomplished with the use of [employer] voice recognition software, prone to medical misidentifications and grammatical errors. This is unintentional and the practitioner does try to identify and correct these, but some could still be present. Please do not hesitate to contact practitioner for clarification. 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 [id number] Office Visit, Est Pt., Level 3. * Procedure Codes:?? 41229 P/M BLASTING MACHINE OPERATOR, INDIV 15 MIN. * Sign off status: Completed true * Provider:??CRISTINO DOWLING PA-C Date:??01/19 History and Physical Notes * HPI (History of Present Illness) Category Sub-Category Detail Notes Category Not es Constitutional Bill is a plea toy 43-year-old male who presents the office for a weight management follow-up. Last seen 12/22/2023. Currently taking Wegovy 1.7 mg with compliance, without any side effects. Patient states has been going to the gym 4 times weekly, eating much better, cutting out carbs, and has better water intake. Body scan showing mostly fat loss with no muscle loss. Patient is 80 pounds of muscle on his body.Interested in continuing with Wegovy 1.7 mg as he is noticing appetite suppression. Physical Examination Category Sub-Category Detail Notes Section Note s General: Age appropriate 42 year old male, well appearing, no acute distress, speaking in full sentences without respiratory compromise. Well groomed, well developed. Alert, Interactive. Skin: Warm, dry and intact. No lesions/rashes/erythema. HEENT: Normocephalic/atraumatic. EOMI intact. PERRLA. Vision intact. No ptosis or lid lag. Nares without discharge or inflammation. Neck/Thyroid: Supple, with no lymphadenopathy. Full ROM. Lung: Clear to auscultation bilaterally, no wheezes, rales or rhonchi. No barrel chest. Equal chest rise and fall bilaterally. Cardiac: S1 and S2 appreciated. No murmurs/rubs or gallops. Abdomen: No visble masses. Extremities: Bilateral lower extremities with no edema. Equal tone bilaterally. MSK: Moving all four extremeties. Neuro: CN II-XI grossly intact. Psych: Stable mood and affect.
[2024-04-14 16:08] VITALS: BP 146/96; PULSE 74; O2SAT 97; BMI 39.5
--- NOTE | 2024-04-14 16:08 | A.OFFPC_ITS ---
Vital Signs 04/14/24 16:08 Height 5 ft 9 in Weight 267 lb 6 oz BMI 39.5 BP 146/96 H Blood Pressure Location Lt brachial Position Sitting Pulse 74 Pulse Source Pulse Oximeter Pulse Oximetry (%) 97 Oxygen Delivery Method Room Air Intake Visit Reasons: Annual Exam Intake Note: Patient is here today for a physical. 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 Accompanied by: Self / Same As Patient Allergies levofloxacin [From LEVAQUIN] Allergy (Mild, Verified 04/14/24 16:10) HIVES egg Allergy (Unknown, Verified 04/14/24 16:10) Unknown seafood Allergy (Unknown, Verified 04/14/24 16:10) Unknown amlodipine Adverse Reaction (Intermediate, Verified 04/14/24 16:10) ineffective hydrochlorothiazide Adverse Reaction (Intermediate, Verified 04/14/24 16:10) orthostatic hypotension Medication List - Last Reconciled 04/14/24 by Joe Mendieta PA-C albuterol sulfate 90 mcg/actuation (Ventolin HFA) 2 puffs inhalation Q4-6H PRN 30 days albuterol sulfate 2.5 mg (3 mL) continuous nebulization Q4-6H PRN fluticasone propion-salmeterol 250-50 mcg/dose (Advair Diskus) 1 inh inhalation BID 90 days fluticasone propionate 50 mcg/actuation 2 sprays intranasal DAILY PRN lisinopril 40 mg PO DAILY 90 days montelukast 10 mg PO DAILY Tobacco use date assessed: 09/23/23 Dental Screening Dental Screen Date: 09/23/23 HPI Annual Exam HPI Details Patient is a 43-year-old male here today for a annual physical. At last visit we discussed his elevated blood pressure readings and increase his lisinopril dose to 40 mg. Blood pressure somewhat elevated today in office. Also labs taken and noted a low testosterone at 190. Concern--> Bill reports he has been in a mental [place] as of late. Of note does have history of ADD and was on stimulant medication for ADD disorder though stopped taking this medication as he felt it became ineffective. Not followed by a psychiatrist anymore. PLAN: He is willing to start non stimulant ADD medication to help him with his attention and focus. .. Hypertension: Blood pressure slightly elevated today in office. He reports that [facility] getting 135-140 systolic. Continues on lisinopril 40 mg. He had side effects hydrochlorothiazide and amlodipine was not effective for him. PLAN: Will transitioned from lisinopril to losartan in hopes that this will work better for him. Will consider additional blood pressure medication. Will send for renal ultrasound to evaluate for renal artery stenosis as his blood pressure seems to be difficult to control. .. Obesity: Has lost a few lb since last office visit. He reports he has been physically active and trying to adapt to better eating habits. Has tried GLP 1 Wegov[place] which was somewhat successful for him though did not lose the amount of weight he was interested in losing. .. Hypogonadism: Most recent testosterone level low for his age. He does note it being a difficult to lose weight. He reports his libido is fine. He is considering following up with Urology about testosterone therapy. Vaccines: Up-to-date with flu vaccine, up-to-date with pneumonia, need up todate tetanus, COVID vaccine [facility] Medical History (Updated 04/18/24 @ 07:14 by Joe Mendieta PA-C) Allergic rhinitis Morbid obesity Desensitization to allergy shot Fatty liver Anemia Anxiety Obstructive sleep apnea Asthma Surgical History History of vasectomy Family History Father Hypertension Hyperlipidemia Mother No problems noted. Maternal Grandmother Myocardial infarction Maternal Grandfather Testicular cancer Paternal Grandmother Pancreatic cancer Paternal Grandfather Colon cancer Paternal Aunt Colon cancer Brother Bipolar disorder Other Mental health disorder Social History Housing: House Alcohol intake: former Year quit: 2021 Patient Tobacco Use Status: Never used Tobacco Years Smoked: teenage stopped e-Cigarette/Vaping Use: Never Used Second Hand Smoke Exposure: No service: No Current occupational status: employed Current occupation: [employer] Cognitive needs: No Hearing needs: No Vision needs: No Questionnaire PHQ-9 Over the last 2 weeks, how often have you been bothered by any of the following problems? 1. Little interest or pleasure in doing things: not at all 2. Feeling down, depressed, or hopeless: not at all 3. Trouble falling or staying asleep, or sleeping too much: not at all 4. Feeling tired or having little energy: not at all 5. Poor appetite or overeating: not at all 6. Feeling bad about yourself - or that you are a failure or have let yourself or your family down: not at all 7. Trouble concentrating on things, such as reading the newspaper or watching television: not at all 8. Moving or speaking so slowly that other people could have noticed. Or the opposite - being so fidgety or restless that you have been moving around a lot more than usual: not at all 9. Thoughts that you would be better off or of hurting yourself in some way: not at all Total score: 0 Depression Screening Interpretation: Negative Depression Screening Done: Yes 24133 - PHQ-9 Billing: Yes Source: Developed by Drs. Miquel Regan, Gloria Castle, Lex Coello and colleagues, with an educational cheo from [employer]. Thrive Questionnaire Date Thrive assessed: 09/23/23 I am a: Patient What is your living situation today?: I have a steady place to live Within the past 12 months, did the food you bought not last and you didn't have the money to get more?: Never true Within the past 12 months, did you worry whether your food would run out before you got money to buy more?: Never true Do you have trouble paying for medicines?: No Do you have trouble getting transportation to medical appointments?: No Do you have trouble paying your heating and electricity bill?: No Do you have trouble taking care of your child, family member or friend?: No Do you have trouble with day-to-day activities such as bathing, preparing meals, shopping, managing finances, etc.?: No Are you interested in more education?: No Please select the resources that you would like help with: None Currently or been in a relationship where the following occur: No concerns reported THRIVE Score: 0 AUDIT C Alcohol Use Questionnaire (AUDIT-C) 1. How often do you have a drink containing alcohol?: Monthly or less 2. How many drinks containing alcohol do you have on a typical day when you are drinking?: 1 or 2 3. How often do you have six or more drinks on one occasion?: Never Total Score: 1 MO-7 AMB Questionnaire MO-7 Date MO - 7 assessed: 09/23/23 Feeling nervous, anxious, or on edge: 1 = Several days Not being able to stop or control worryin = Not at all Worrying too much about different things: 0 = Not at all Trouble relaxin = Several days Being so restless that it is hard to sit still: 0 = Not at all Becoming easily annoyed or irritable: 0 = Not at all Feeling afraid as if something awful might happen: 0 = Not at all Total MO-7 score (0-4 normal; 5-9 mild; 10-14 moderate; 15-21 severe): 2 Source: Developed by Drs. Miquel Regan, Gloria Castle, Lex Coello and colleagues, with an educational cheo from [employer]. MO-7 Assessment Billing MO-7 Assessment Tool: MO-7 Assessment 61596 Review of Systems Const Denies body aches, Denies chills, Denies excessive sweating, Denies fatigue, Denies fever(s) and Denies headache(s) Eyes Denies blurry vision ENT Denies dysphagia, Denies vertigo, Denies dizziness, Denies headache(s), Denies hearing loss and Denies tinnitus Card Denies chest pain, Denies chest pain with activity, Denies syncope, Denies irregular heart rhythm and Denies dyspnea Resp Denies chest congestion, Denies cough, Denies hemoptysis, Denies dyspnea and Denies wheezing GI Denies abdominal pain, Denies melena, Denies hematochezia, Denies coffee ground emesis, Denies dysphagia, Denies diarrhea, Denies nausea and Denies vomiting Denies difficulty urinating, Denies dysuria, Denies urinary frequency, Denies urinary hesitancy and Denies urinary urgency Musc Denies arthralgias, Denies limited range of motion, Denies muscle cramps and Denies muscle weakness Skin/Breast Denies rash and Denies skin ulcer Neuro Denies Abnormal speech present, Denies confusion, Denies vertigo, Denies dizziness, Denies syncope, Denies headache(s), Denies memory loss and Denies seizure-like activity Psych Denies anxiety, Denies confusion, Denies depression, Denies memory loss, Denies panic attacks and Denies paranoia Endo Denies excessive sweating, Denies fatigue, Denies flushing, Denies polydipsia and Denies polyuria Aller/Immun Denies wheezing Physical exam (Primary Care) Vital Signs: Last Vital Signs Pulse 74 04/14/24 16:08 BP 146/96 H 04/14/24 16:08 Pulse Ox 97 04/14/24 16:08 Oxygen Delivery Method Room Air 04/14/24 16:08 BMI result Body Mass Index 39.5 Tobacco/Smoking Status: Tobacco use Status Tobacco use date assessed 09/23/23 04/14/24 16:09 Patient Tobacco Use Status Never used Tobacco 04/14/24 16:09 e-Cigarette/Vaping Use Never Used 04/14/24 16:09 PHQ-9: PHQ-9 Score PHQ-9: Total score 0 04/14/24 16:33 Depression Screening Interpretation: Negative Thrive Assessment: Date of Thrive Assessment Date Thrive assessed 09/23/23 04/14/24 16:09 Currently or been in a relationship where the following occur: No concerns reported Const General: cooperative, comfortable, no acute distress, alert and awake; No confusion Orientation/consciousness: oriented to person, oriented to place, patient oriented x3 and No confusion HENMT Head: Yes normocephalic Ears: external ears normal and TM's normal bilaterally Face and sinus: No sinus tenderness Mouth: Normal oral and palatal mucosa present and tongue normal Teeth and gingiva: dentition normal and gingiva normal Throat: Yes posterior oropharynx normal, Yes tonsils normal and Yes uvula midline Eyes Conjunctivae: conjunctivae normal Sclerae: sclerae normal Pupils: Equal, round and reactive pupils present EOM: EOMs intact bilaterally Direct Ophthalmoscopy: No no photophobia Neck Neck: Yes no lymphadenopathy, No tender and Yes no JVD Thyroid: Thyroid normal Carotids: no bruits Chest Chest palpation & inspection: no tenderness Resp Effort & Inspection: normal respiratory effort, no audible wheezes, not labored and no stridor Auscultation: no crackles, no rales, no rhonchi and no wheezes Cardio Jugular venous distension: no JVD Rate: regular rate, not bradycardic and not tachycardic Rhythm: regular rhythm Bruits: no carotid bruits Peripheral pulses: Peripheral pulses 2+ throughout GI Inspection: Yes normal to inspection, No abdominal wall ecchymosis and No visible herniation Palpation (GI): Soft to palpation, nontender, no guarding, not rigid and No hepatosplenomegaly present Auscultation: normoactive bowel sounds General: Yes no CVA tenderness Back/Spine/Pelvis Back: no CVA tenderness and No back tenderness Cervical Spine: cervical ROM normal Thoracic/Lumbar Spine: thoracic and lumbar spine normal to inspection, straight leg raise negative bilaterally, No thoraco-lumbar ROM limited and No lumbar spinal tenderness Skin Lesions: no lesions Rashes: no rashes Wounds: no wounds Neuro General: oriented to person, oriented to place, patient oriented x3, CN's II-XI intact bilaterally and No confusion Cranial nerves: Yes Equal, round and reactive pupils present and Yes Normal accommodation reflex present Cognition (Neuro): normal cognition Speech: No Abnormal speech present Gait exam (Neuro): Normal gait present Motor exam (neuro): 5/5 motor strength present throughout Extrem Right upper extremity: full ROM; no cyanosis Left upper extremity: full ROM; no cyanosis Right lower extremity: no edema Left lower extremity: no edema Psych Appearance: grossly normal Mental Status: mental status grossly normal Affect: normal affect Attitude: cooperative Thought process: Normal thought process present Immunizations Boostrix Tdap 2.5 Lf unit-8 mcg-5 Lf/0.5 mL intramuscular syringe Performing Provider: Joe Mendieta PA-C [facility] [place] [facility] Administered by: MAURICE White on 04/14/24 16:34 Dose Route Admin Location Dispensed Lot Number Expiration Date NDC Radiology Specialist 0.5 mL IM Left Deltoid 0.5 mL [id number] 05/14/26 [id number] Hologic VIS Given Date VIS Provided VIS Publication Date 04/14/24 Single Vaccine 20 Eligibility Eligibility Date Funding Source Not [facility] Eligible 04/14/24 Private Coding Level of Care Code Est Pt Prev Care 40-64y(03455) Diagnoses Annual physical exam Z00.00 Primary hypertension I10 Hypertension type: primary hypertension Attention deficit hyperactivity disorder (ADHD), predominantly inattentive type F90.0 Attention deficit-hyperactivity disorder type: predominantly inattentive Class 2 obesity E66.812 Low testosterone in male R79.89 Additional Codes MO-7 Assessment Billing - MO-7 Assessment Tool: MO-7 Assessment 69477 ([id number]) PHQ-9 - 51601 - PHQ-9 Billing: Yes ([id number]) Assessment & Plan Assessment & Plan (1) Annual physical exam: Code(s): Z00.00 - Encounter for general adult medical examination without abnormal findings Category: Medical Plan: As per HPI (2) HTN (hypertension): Code(s): I10 - Essential (primary) hypertension Category: Medical Qualifiers: Hypertension type: primary hypertension Qualified Code(s): I10 - Essential (primary) hypertension Plan: Patient's blood pressure elevated today in office. Has been on highest dose of lisinopril quite some time though blood pressure still remains elevated. Will transition to losartan in hopes this will work better for him. Has had side effects to both amlodipine and hydrochlorothiazide. If losartan not effective will consider additional nifedipine or chlorthalidone. Will also send for renal ultrasound to evaluate for renal artery stenosis due to his difficult to control blood pressure. (3) ADHD: Code(s): F90.9 - Attention-deficit hyperactivity disorder, unspecified type Category: Medical Qualifiers: Attention deficit-hyperactivity disorder type: predominantly inattentive Qualified Code(s): F90.0 - Attention-deficit hyperactivity disorder, predominantly inattentive type Plan: As per HPI patient has been reporting mental fog and difficulty with attention. Has not been treated for his ADD for quite some time now. Was seeing a psychiatrist and was receiving stimulant medication for his ADHD disorder. He is willing to try non stimulant medication to help him with his attention and focus. Will try Strattera 40 mg and up titrate per response to usual effective dose of 80 mg. (4) Class 2 obesity: Code(s): E66.812 - Obesity, class 2 Category: Medical Plan: Patient does understand his BMI is over 35 will continue working on being more physically active and adapting to better eating habits to reduce his weight. Did use GLP 1 for some time through a weight loss clinic in lost some weight though stopped medication as it stopped being effective for him. (5) Low testosterone in male: Code(s): R79.89 - Other specified abnormal findings of blood chemistry Category: Medical Plan: TRIES PATIENT TO FOLLOW UP WITH HIS UROLOGIST DUE TO HIS HYPOGONADISM. Orders: Orders US renal BI 04/14/24 I10 - Essential (primary) hypertension US renal doppler 04/14/24 I10 - Essential (primary) hypertension TDaP Immunization 04/14/24 I10 - Essential (primary) hypertension, Z23 - Encounter for immunization Medications: New atomoxetine (Strattera) 40 mg PO DAILY 30 caps 0RF 30 days F90.0 - Attention- deficit hyperactivity disorder, predominantly inattentive type losartan 100 mg PO DAILY 30 tabs 1RF 30 days I10 - Essential (primary) hypertension Discontinued lisinopril Discontinued Reason: Doctor's Order 40 mg PO DAILY 90 days 90 tabs 1RF E66.01 - Morbid (severe) obesity due to excess calories, I10 - Essential (primary) hypertension, Z68.41 - Body mass index [BMI] 40.0-44.9, adult
--- OUTSIDE RECORDS SUMMARY | 2024-04-14 16:08 | XMS_ITS | Patient Health Record ---
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 alcohol: denies tob: denies drug: denies 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 alcohol: denies tob: denies drug: denies 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 alcohol: denies tob: denies drug: denies 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 alcohol: denies tob: denies drug: denies 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 alcohol: denies tob: denies drug: denies 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 alcohol: denies tob: denies drug: denies 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20) Active confirmed 201361687 VITAL SIGNS Heart Rate 76 /min 02/08/2024 Oximetry 99 % 02/08/2024 Blood pressure diastolic 88 mm Hg 02/08/2024 Height 69 in 02/08/2024 Blood pressure systolic 142 mm Hg 02/08/2024 Weight 262.6 lbs 02/08/2024 BMI 38.78 kg/m2 02/08/2024 Encounters Encounter Location Date Provider Diagnosis [facility] [address] [place] [address] 03/23/2024 CRISTINO JOSEY [facility] [address] [place] [address] 05/11/2023 CRISTINO JOSEY Other obesity E66.8 ; Body mass index (BMI) of 40.1 to 44.9 in adult Z68.41 ; Intermittent asthma without complication, unspecified asthma severity J45.20 ; Hypertension, unspecified type I10 and Depression, unspecified depression type F32.A [facility] [address] [place] [address] 06/22/2023 CRISTINO JOSEY Other obesity E66.8 ; Body mass index (BMI) of 40.1 to 44.9 in adult Z68.41 ; Intermittent asthma without complication, unspecified asthma severity J45.20 ; Hypertension, unspecified type I10 and Depression, unspecified depression type F32.A [facility] [address] [place] [address] 07/30/2023 CRISTINO JOSEY Other obesity E66.8 ; Body mass index (BMI) of 40.1 to 44.9 in adult Z68.41 ; Intermittent asthma without complication, unspecified asthma severity J45.20 ; Hypertension, unspecified type I10 and Depression, unspecified depression type F32.A [facility] [address] [place] [address] 09/08/2023 CRISTINO JOSEY Other obesity E66.8 ; Body mass index (BMI) of 40.1 to 44.9 in adult Z68.41 ; Intermittent asthma without complication, unspecified asthma severity J45.20 ; Hypertension, unspecified type I10 and Depression, unspecified depression type F32.A [facility] [address] [place] [address] 10/28/2023 CRISTINO JOSEY Other obesity E66.8 ; BMI 39.0-39.9,adult Z68.39 ; Intermittent asthma without complication, unspecified asthma severity J45.20 ; Hypertension, unspecified type I10 and Depression, unspecified depression type F32.A [facility] [address] [place] [address] 12/22/2023 CRISTINO JOSEY Other obesity E66.8 ; BMI 39.0-39.9,adult Z68.39 ; Intermittent asthma without complication, unspecified asthma severity J45.20 ; Hypertension, unspecified type I10 and Depression, unspecified depression type F32.A [facility] [address] [place] [address] 02/08/2024 CRISTINO JOSEY Obesity (BMI 30-39.9 ) E66.9 ; BMI 38.0-38.9,adult Z68.38 ; Hypertension, unspecified type I10 ; Intermittent asthma without complication, unspecified asthma severity J45.20 and Depression, unspecified depression type F32.A [facility] [address] [place] [id number] 05/12/2023 CRISTINO JOSEY [facility] [address] [place] [address] 12/23/2023 CRISTINO DOWLING ASSESSMENTS Encounter Date Diagnosis Assessment Notes Treatment Notes Treatment Clinical Notes Section Notes 05/11/2023 Other obesity (ICD-10 - E66.8) Bill is a 42 year old male [...] insurance until 3 consecutive months due to [employer] [place]. Could consider compounded semaglutide. We will discuss [...] weight loss medications although cannot submit to [employer] until at least 3 consecutive months. We [...] to the medication not being in health [employer]'s formulary. #Hypertension: Continue lisinopril 30 mg. Patient declined symptoms at this time. Encouraged to continue following with PCP for this. #Depression: Taking escitalopram 5 mg with compliance, without any side effects. Patient does follow with psychiatry. #Asthma: Taking montelukast 10 mg, as well as Advair without any concern. Time spent with patient 30 minutes with greater than 50% on patient education and care coordination. Follow-up in 6 weeks, sooner as needed All quetsions answered to patients satisfaction. Patient verbalized understanding of diagnosis and treatments explained. To call sooner prior to next visit it any questions/concerns arise. Case discussed with collaborating physician Eric Moe who reviewed the assessment and plan. Chart, medications, labs, vital signs reviewed. Dictation was accomplished with the use of [employer] voice recognition software, prone to medical misidentifications and grammatical errors. This is unintentional and the practitioner does try to identify and correct these, but some could still be present. Please do not hesitate to contact practitioner for clarification. 06/22/2023 Other obesity (ICD-10 - E66.8) Bill is a 42 year old male [...] insurance until 3 consecutive months due to [employer] [place]. Could consider compounded semaglutide. We will discuss [...] weight loss medications although cannot submit to [employer] [place] until at least 3 consecutive months. We [...] secondary to the medication not being in [employer] [place]'s formulary. 06/22/2023: Weight: 287.3 lbs, BMI: 42.42. He took Wegovy 0.25 for 4 weeks, followed by a 2 week period without medication. Patient advised on improving diet, reducing sweets, choosing low carbohydrate snack, adequate hydration, continuing his weightlifting, walking 3x weekly, sleep hygiene, stress management . We will increase Wegovy to 0.5 mg. Follow up with body scan in 4 weeks. #Hypertension: Continue lisinopril 30 mg. Patient declined symptoms at this time. Encouraged to continue following with PCP for this. #Depression: Taking escitalopram 5 mg with compliance, without any side effects. Patient does follow with psychiatry. #Asthma: Taking montelukast 10 mg, as well as Advair without any concern. Time spent with patient 30 minutes with greater than 50% on patient education and care coordination. Follow-up in 6 weeks, sooner as needed All quetsions answered to patients satisfaction. Patient verbalized understanding of diagnosis and treatments explained. To call sooner prior to next visit it any questions/concerns arise. Case discussed with collaborating physician Eric Moe who reviewed the assessment and plan. Chart, medications, labs, vital signs reviewed. Dictation was accomplished with the use of Dragon voice recognition software, prone to medical misidentifications and grammatical errors. This is unintentional and the practitioner does try to identify and correct these, but some could still be present. Please do not hesitate to contact practitioner for clarification. 07/30/2023 Other obesity (ICD-10 - E66.8) Bill is a 42 year old male [...] insurance until 3 consecutive months due to [employer]. Could consider compounded semaglutide. We will discuss [...] weight loss medications although cannot submit to [employer] until at least 3 consecutive months. We [...] secondary to the medication not being in [employer] [place]'s formulary. 06/22/2023: Weight: 287.3 lbs, BMI: 42.42. [...] with stress. Patient agreeable to tx plan. #Hypertension: Continue lisinopril 30 mg. Patient declined symptoms at this time. Encouraged to continue following with PCP for this.Blood pressure mildly elevated today. #Depression: Taking escitalopram 5 mg with compliance, without any side effects. Patient does follow with psychiatry. #Asthma: Taking montelukast 10 mg, as well as Advair without any concern. Follow-up in 4 Weeks, sooner as needed. All questions answered to patients satisfaction. Patient verbalized understanding of diagnosis and treatments explained. To call sooner prior to next visit it any questions/concerns arise. Case discussed with collaborating physician Eric Moe who reviewed the assessment and plan. Chart, medications, labs, vital signs reviewed. Dictation was accomplished with the use of [employer] voice recognition software, prone to medical misidentifications and grammatical errors. This is unintentional and the practitioner does try to identify and correct these, but some could still be present. Please do not hesitate to contact practitioner for clarification. 09/08/2023 Other obesity (ICD-10 - E66.8) Bill is a 42 year old male [...] insurance until 3 consecutive months due to [employer]. Could consider compounded semaglutide. We will discuss [...] weight loss medications although cannot submit to [employer] until at least 3 consecutive months. We [...] secondary to the medication not being in [employer] [place]'s formulary. 06/22/2023: Weight: 287.3 lbs, BMI: 42.42. [...] per week. Patient sleeping well, drinking water. #Hypertension: Continue lisinopril 30 mg. Patient declined symptoms at this time. Encouraged to continue following with PCP for this. #Depression: Taking escitalopram 5 mg with compliance, without any side effects. Patient does follow with psychiatry. #Asthma: Taking montelukast 10 mg, as well as Advair without any concern. Follow-up in 4 to 6 weeks, sooner as needed. All questions answered to patients satisfaction. Patient verbalized understanding of diagnosis and treatments explained. To call sooner prior to next visit it any questions/concerns arise. Case discussed with collaborating physician Eric Moe who reviewed the assessment and plan. Chart, medications, labs, vital signs reviewed. Dictation was accomplished with the use of [employer] voice recognition software, prone to medical misidentifications and grammatical errors. This is unintentional and the practitioner does try to identify and correct these, but some could still be present. Please do not hesitate to contact practitioner for clarification. 10/28/2023 Other obesity (ICD-10 - E66.8) Bill is a 42 year old male [...] insurance until 3 consecutive months due to [employer] [place]. Could consider compounded semaglutide. We will discuss [...] weight loss medications although cannot submit to [employer] until at least 3 consecutive months. We [...] to the medication not being in health [employer]'s formulary. 06/22/2023: Weight: 287.3 lbs, BMI: 42.42. [...] above average muscle mass on body scan. #Hypertension: Continue lisinopril 30 mg. Patient declined symptoms at this time. Encouraged to continue following with PCP for this. #Depression: Taking escitalopram 5 mg with compliance, without any side effects. Patient does follow with psychiatry. #Asthma: Taking montelukast 10 mg, as well as Advair without any concern. Follow-up in December, sooner as needed. All questions answered to patients satisfaction. Patient verbalized understanding of diagnosis and treatments explained. To call sooner prior to next visit it any questions/concerns arise. Case discussed with collaborating physician Eric Moe who reviewed the assessment and plan. Chart, medications, labs, vital signs reviewed. Dictation was accomplished with the use of [employer] voice recognition software, prone to medical misidentifications and grammatical errors. This is unintentional and the practitioner does try to identify and correct these, but some could still be present. Please do not hesitate to contact practitioner for clarification. 10/28/2023 BMI 39.0-39.9,adult (ICD-10 - Z68.39) Bill is a 42 year old male [...] insurance until 3 consecutive months due to [employer]. Could consider compounded semaglutide. We will discuss [...] weight loss medications although cannot submit to [employer] until at least 3 consecutive months. We [...] to the medication not being in health [employer]'s formulary. 06/22/2023: Weight: 287.3 lbs, BMI: 42.42. [...] above average muscle mass on body scan. #Hypertension: Continue lisinopril 30 mg. Patient declined symptoms at this time. Encouraged to continue following with PCP for this. #Depression: Taking escitalopram 5 mg with compliance, without any side effects. Patient does follow with psychiatry. #Asthma: Taking montelukast 10 mg, as well as Advair without any concern. Follow-up in December, sooner as needed. All questions answered to patients satisfaction. Patient verbalized understanding of diagnosis and treatments explained. To call sooner prior to next visit it any questions/concerns arise. Case discussed with collaborating physician Eric Moe who reviewed the assessment and plan. Chart, medications, labs, vital signs reviewed. Dictation was accomplished with the use of [employer] voice recognition software, prone to medical misidentifications and grammatical errors. This is unintentional and the practitioner does try to identify and correct these, but some could still be present. Please do not hesitate to contact practitioner for clarification. 12/22/2023 Other obesity (ICD-10 - E66.8) Bill is a 42 year old male [...] insurance until 3 consecutive months due to [employer]. Could consider compounded semaglutide. We will discuss [...] weight loss medications although cannot submit to [employer] until at least 3 consecutive months. We [...] secondary to the medication not being in [employer]'s formulary. 06/22/2023: Weight: 287.3 lbs, BMI: 42.42. [...] over to [employer] pending health insurance coverage. #Hypertension: Continue lisinopril 40 mg. Patient declined symptoms at this time. Blood pressure continues to be elevated. Following with PCP in regards to this. #Depression: Taking escitalopram 5 mg with compliance, without any side effects. Patient does follow with psychiatry. #Asthma: Taking montelukast 10 mg, as well as Advair without any concern. Follow-up in December, sooner as needed. All questions answered to patients satisfaction. Patient verbalized understanding of diagnosis and treatments explained. To call sooner prior to next visit it any questions/concerns arise. Case discussed with collaborating physician Eric Moe who reviewed the assessment and plan. Chart, medications, labs, vital signs reviewed. Dictation was accomplished with the use of [employer] voice recognition software, prone to medical misidentifications and grammatical errors. This is unintentional and the practitioner does try to identify and correct these, but some could still be present. Please do not hesitate to contact practitioner for clarification. 02/08/2024 Obesity (BMI 30-39.9) (ICD-10 - E66.9) [...] insurance until 3 consecutive months due to [employer] [place]. Could consider compounded semaglutide. We will discuss [...] weight loss medications although cannot submit to [employer] until at least 3 consecutive months. We [...] secondary to the medication not being in [employer]'s formulary. 06/22/2023: Weight: 287.3 lbs, BMI: 42.42. [...] Dictation was accomplished with the use of [employer] voice recognition software, prone to medical misidentifications [...] insurance until 3 consecutive months due to [employer]. Could consider compounded semaglutide. We will discuss [...] weight loss medications although cannot submit to [employer] until at least 3 consecutive months. We [...] to the medication not being in health [employer]'s formulary. 06/22/2023: Weight: 287.3 lbs, BMI: 42.42. [...] Dictation was accomplished with the use of [employer] voice recognition software, prone to medical misidentifications [...] insurance until 3 consecutive months due to [facility]. Could consider compounded semaglutide. We will discuss [...] weight loss medications although cannot submit to [facility] until at least 3 consecutive months. We [...] to the medication not being in health [employer]'s formulary. 06/22/2023: Weight: 287.3 lbs, BMI: 42.42. [...] Dictation was accomplished with the use of [employer] voice recognition software, prone to medical misidentifications and grammatical errors. This is unintentional and the practitioner does try to identify and correct these, but some could still be present. Please do not hesitate to contact practitioner for clarification. 12/22/2023 BMI 39.0-39.9,adult (ICD-10 - Z68.39) Bill is a 42 year old male [...] insurance until 3 consecutive months due to [employer]. Could consider compounded semaglutide. We will discuss [...] weight loss medications although cannot submit to [employer] until at least 3 consecutive months. We [...] secondary to the medication not being in [employer]'s formulary. 06/22/2023: Weight: 287.3 lbs, BMI: 42.42. [...] over to [employer] pending health insurance coverage. #Hypertension: Continue lisinopril 40 mg. Patient declined symptoms at this time. Blood pressure continues to be elevated. Following with PCP in regards to this. #Depression: Taking escitalopram 5 mg with compliance, without any side effects. Patient does follow with psychiatry. #Asthma: Taking montelukast 10 mg, as well as Advair without any concern. Follow-up in December, sooner as needed. All questions answered to patients satisfaction. Patient verbalized understanding of diagnosis and treatments explained. To call sooner prior to next visit it any questions/concerns arise. Case discussed with collaborating physician Eric Moe who reviewed the assessment and plan. Chart, medications, labs, vital signs reviewed. Dictation was accomplished with the use of [employer] voice recognition software, prone to medical misidentifications and grammatical errors. This is unintentional and the practitioner does try to identify and correct these, but some could still be present. Please do not hesitate to contact practitioner for clarification. 10/28/2023 Intermittent asthma without complication, unspecified asthma severity [...] insurance until 3 consecutive months due to [employer] [place]. Could consider compounded semaglutide. We will discuss [...] weight loss medications although cannot submit to [employer] until at least 3 consecutive months. We [...] to the medication not being in health [employer]'s formulary. 06/22/2023: Weight: 287.3 lbs, BMI: 42.42. [...] above average muscle mass on body scan. #Hypertension: Continue lisinopril 30 mg. Patient declined symptoms at this time. Encouraged to continue following with PCP for this. #Depression: Taking escitalopram 5 mg with compliance, without any side effects. Patient does follow with psychiatry. #Asthma: Taking montelukast 10 mg, as well as Advair without any concern. Follow-up in December, sooner as needed. All questions answered to patients satisfaction. Patient verbalized understanding of diagnosis and treatments explained. To call sooner prior to next visit it any questions/concerns arise. Case discussed with collaborating physician Eric Moe who reviewed the assessment and plan. Chart, medications, labs, vital signs reviewed. Dictation was accomplished with the use of [employer] voice recognition software, prone to medical misidentifications and grammatical errors. This is unintentional and the practitioner does try to identify and correct these, but some could still be present. Please do not hesitate to contact practitioner for clarification. 09/08/2023 Body mass index (BMI) of 40.1 to 44.9 in adult (ICD-10 - Z68.41) Bill is a 42 year old male [...] insurance until 3 consecutive months due to [employer]. Could consider compounded semaglutide. We will discuss [...] weight loss medications although cannot submit to [employer] until at least 3 consecutive months. We [...] secondary to the medication not being in [employer] [place]'s formulary. 06/22/2023: Weight: 287.3 lbs, BMI: 42.42. [...] per week. Patient sleeping well, drinking water. #Hypertension: Continue lisinopril 30 mg. Patient declined symptoms at this time. Encouraged to continue following with PCP for this. #Depression: Taking escitalopram 5 mg with compliance, without any side effects. Patient does follow with psychiatry. #Asthma: Taking montelukast 10 mg, as well as Advair without any concern. Follow-up in 4 to 6 weeks, sooner as needed. All questions answered to patients satisfaction. Patient verbalized understanding of diagnosis and treatments explained. To call sooner prior to next visit it any questions/concerns arise. Case discussed with collaborating physician Eric Moe who reviewed the assessment and plan. Chart, medications, labs, vital signs reviewed. Dictation was accomplished with the use of [employer] voice recognition software, prone to medical misidentifications and grammatical errors. This is unintentional and the practitioner does try to identify and correct these, but some could still be present. Please do not hesitate to contact practitioner for clarification. 07/30/2023 Body mass index (BMI) of 40.1 to 44.9 in adult (ICD-10 - Z68.41) Bill is a 42 year old male [...] insurance until 3 consecutive months due to [employer]. Could consider compounded semaglutide. We will discuss [...] weight loss medications although cannot submit to [employer] until at least 3 consecutive months. We [...] to the medication not being in health [employer]'s formulary. 06/22/2023: Weight: 287.3 lbs, BMI: 42.42. [...] with stress. Patient agreeable to tx plan. #Hypertension: Continue lisinopril 30 mg. Patient declined symptoms at this time. Encouraged to continue following with PCP for this.Blood pressure mildly elevated today. #Depression: Taking escitalopram 5 mg with compliance, without any side effects. Patient does follow with psychiatry. #Asthma: Taking montelukast 10 mg, as well as Advair without any concern. Follow-up in 4 Weeks, sooner as needed. All questions answered to patients satisfaction. Patient verbalized understanding of diagnosis and treatments explained. To call sooner prior to next visit it any questions/concerns arise. Case discussed with collaborating physician Eric Moe who reviewed the assessment and plan. Chart, medications, labs, vital signs reviewed. Dictation was accomplished with the use of [employer] voice recognition software, prone to medical misidentifications and grammatical errors. This is unintentional and the practitioner does try to identify and correct these, but some could still be present. Please do not hesitate to contact practitioner for clarification. 06/22/2023 Body mass index (BMI) of 40.1 to 44.9 in adult (ICD-10 - Z68.41) Bill is a 42 year old male [...] insurance until 3 consecutive months due to [employer]. Could consider compounded semaglutide. We will discuss [...] weight loss medications although cannot submit to [employer] until at least 3 consecutive months. We [...] secondary to the medication not being in [employer] [place]'s formulary. 06/22/2023: Weight: 287.3 lbs, BMI: 42.42. He took Wegovy 0.25 for 4 weeks, followed by a 2 week period without medication. Patient advised on improving diet, reducing sweets, choosing low carbohydrate snack, adequate hydration, continuing his weightlifting, walking 3x weekly, sleep hygiene, stress management . We will increase Wegovy to 0.5 mg. Follow up with body scan in 4 weeks. #Hypertension: Continue lisinopril 30 mg. Patient declined symptoms at this time. Encouraged to continue following with PCP for this. #Depression: Taking escitalopram 5 mg with compliance, without any side effects. Patient does follow with psychiatry. #Asthma: Taking montelukast 10 mg, as well as Advair without any concern. Time spent with patient 30 minutes with greater than 50% on patient education and care coordination. Follow-up in 6 weeks, sooner as needed All quetsions answered to patients satisfaction. Patient verbalized understanding of diagnosis and treatments explained. To call sooner prior to next visit it any questions/concerns arise. Case discussed with collaborating physician Eric Moe who reviewed the assessment and plan. Chart, medications, labs, vital signs reviewed. Dictation was accomplished with the use of [employer] voice recognition software, prone to medical misidentifications and grammatical errors. This is unintentional and the practitioner does try to identify and correct these, but some could still be present. Please do not hesitate to contact practitioner for clarification. 05/11/2023 Body mass index (BMI) of 40.1 to 44.9 in adult (ICD-10 - Z68.41) Bill is a 42 year old male [...] insurance until 3 consecutive months due to [employer]. Could consider compounded semaglutide. We will discuss [...] weight loss medications although cannot submit to [employer] until at least 3 consecutive months. We [...] secondary to the medication not being in [employer]'s formulary. #Hypertension: Continue lisinopril 30 mg. Patient declined symptoms at this time. Encouraged to continue following with PCP for this. #Depression: Taking escitalopram 5 mg with compliance, without any side effects. Patient does follow with psychiatry. #Asthma: Taking montelukast 10 mg, as well as Advair without any concern. Time spent with patient 30 minutes with greater than 50% on patient education and care coordination. Follow-up in 6 weeks, sooner as needed All quetsions answered to patients satisfaction. Patient verbalized understanding of diagnosis and treatments explained. To call sooner prior to next visit it any questions/concerns arise. Case discussed with collaborating physician Eric Moe who reviewed the assessment and plan. Chart, medications, labs, vital signs reviewed. Dictation was accomplished with the use of [employer] voice recognition software, prone to medical misidentifications and grammatical errors. This is unintentional and the practitioner does try to identify and correct these, but some could still be present. Please do not hesitate to contact practitioner for clarification. 05/11/2023 Intermittent asthma without complication, unspecified asthma severity [...] insurance until 3 consecutive months due to [employer] [place]. Could consider compounded semaglutide. We will discuss [...] weight loss medications although cannot submit to [employer] [place] until at least 3 consecutive months. We [...] secondary to the medication not being in [employer] formulary. #Hypertension: Continue lisinopril 30 mg. Patient declined symptoms at this time. Encouraged to continue following with PCP for this. #Depression: Taking escitalopram 5 mg with compliance, without any side effects. Patient does follow with psychiatry. #Asthma: Taking montelukast 10 mg, as well as Advair without any concern. Time spent with patient 30 minutes with greater than 50% on patient education and care coordination. Follow-up in 6 weeks, sooner as needed All quetsions answered to patients satisfaction. Patient verbalized understanding of diagnosis and treatments explained. To call sooner prior to next visit it any questions/concerns arise. Case discussed with collaborating physician Eric Moe who reviewed the assessment and plan. Chart, medications, labs, vital signs reviewed. Dictation was accomplished with the use of [employer] voice recognition software, prone to medical misidentifications and grammatical errors. This is unintentional and the practitioner does try to identify and correct these, but some could still be present. Please do not hesitate to contact practitioner for clarification. 06/22/2023 Intermittent asthma without complication, unspecified asthma severity [...] insurance until 3 consecutive months due to [employer] [place]. Could consider compounded semaglutide. We will discuss [...] weight loss medications although cannot submit to [employer] [place] until at least 3 consecutive months. We [...] to the medication not being in health [employer]'s formulary. 06/22/2023: Weight: 287.3 lbs, BMI: 42.42. He took Wegovy 0.25 for 4 weeks, followed by a 2 week period without medication. Patient advised on improving diet, reducing sweets, choosing low carbohydrate snack, adequate hydration, continuing his weightlifting, walking 3x weekly, sleep hygiene, stress management . We will increase Wegovy to 0.5 mg. Follow up with body scan in 4 weeks. #Hypertension: Continue lisinopril 30 mg. Patient declined symptoms at this time. Encouraged to continue following with PCP for this. #Depression: Taking escitalopram 5 mg with compliance, without any side effects. Patient does follow with psychiatry. #Asthma: Taking montelukast 10 mg, as well as Advair without any concern. Time spent with patient 30 minutes with greater than 50% on patient education and care coordination. Follow-up in 6 weeks, sooner as needed All quetsions answered to patients satisfaction. Patient verbalized understanding of diagnosis and treatments explained. To call sooner prior to next visit it any questions/concerns arise. Case discussed with collaborating physician Eric Moe who reviewed the assessment and plan. Chart, medications, labs, vital signs reviewed. Dictation was accomplished with the use of [employer] voice recognition software, prone to medical misidentifications and grammatical errors. This is unintentional and the practitioner does try to identify and correct these, but some could still be present. Please do not hesitate to contact practitioner for clarification. 07/30/2023 Intermittent asthma without complication, unspecified asthma severity [...] insurance until 3 consecutive months due to [employer] [place]. Could consider compounded semaglutide. We will discuss [...] weight loss medications although cannot submit to [employer] [place] until at least 3 consecutive months. We [...] to the medication not being in health [place]'s formulary. 06/22/2023: Weight: 287.3 lbs, BMI: 42.42. [...] with stress. Patient agreeable to tx plan. #Hypertension: Continue lisinopril 30 mg. Patient declined symptoms at this time. Encouraged to continue following with PCP for this.Blood pressure mildly elevated today. #Depression: Taking escitalopram 5 mg with compliance, without any side effects. Patient does follow with psychiatry. #Asthma: Taking montelukast 10 mg, as well as Advair without any concern. Follow-up in 4 Weeks, sooner as needed. All questions answered to patients satisfaction. Patient verbalized understanding of diagnosis and treatments explained. To call sooner prior to next visit it any questions/concerns arise. Case discussed with collaborating physician Eric Moe who reviewed the assessment and plan. Chart, medications, labs, vital signs reviewed. Dictation was accomplished with the use of [employer] voice recognition software, prone to medical misidentifications and grammatical errors. This is unintentional and the practitioner does try to identify and correct these, but some could still be present. Please do not hesitate to contact practitioner for clarification. 10/28/2023 Hypertension, unspecified type (ICD-10 - I10) Bill [...] insurance until 3 consecutive months due to [employer]. Could consider compounded semaglutide. We will discuss [...] weight loss medications although cannot submit to [employer] [place] until at least 3 consecutive months. We [...] to the medication not being in health [place]'s formulary. 06/22/2023: Weight: 287.3 lbs, BMI: 42.42. [...] above average muscle mass on body scan. #Hypertension: Continue lisinopril 30 mg. Patient declined symptoms at this time. Encouraged to continue following with PCP for this. #Depression: Taking escitalopram 5 mg with compliance, without any side effects. Patient does follow with psychiatry. #Asthma: Taking montelukast 10 mg, as well as Advair without any concern. Follow-up in December, sooner as needed. All questions answered to patients satisfaction. Patient verbalized understanding of diagnosis and treatments explained. To call sooner prior to next visit it any questions/concerns arise. Case discussed with collaborating physician Eric Moe who reviewed the assessment and plan. Chart, medications, labs, vital signs reviewed. Dictation was accomplished with the use of [employer] voice recognition software, prone to medical misidentifications and grammatical errors. This is unintentional and the practitioner does try to identify and correct these, but some could still be present. Please do not hesitate to contact practitioner for clarification. 09/08/2023 Intermittent asthma without complication, unspecified asthma severity [...] insurance until 3 consecutive months due to [employer] [place]. Could consider compounded semaglutide. We will discuss [...] weight loss medications although cannot submit to [employer] until at least 3 consecutive months. We [...] to the medication not being in health [employer]'s formulary. 06/22/2023: Weight: 287.3 lbs, BMI: 42.42. [...] per week. Patient sleeping well, drinking water. #Hypertension: Continue lisinopril 30 mg. Patient declined symptoms at this time. Encouraged to continue following with PCP for this. #Depression: Taking escitalopram 5 mg with compliance, without any side effects. Patient does follow with psychiatry. #Asthma: Taking montelukast 10 mg, as well as Advair without any concern. Follow-up in 4 to 6 weeks, sooner as needed. All questions answered to patients satisfaction. Patient verbalized understanding of diagnosis and treatments explained. To call sooner prior to next visit it any questions/concerns arise. Case discussed with collaborating physician Eric Moe who reviewed the assessment and plan. Chart, medications, labs, vital signs reviewed. Dictation was accomplished with the use of [employer] voice recognition software, prone to medical misidentifications and grammatical errors. This is unintentional and the practitioner does try to identify and correct these, but some could still be present. Please do not hesitate to contact practitioner for clarification. 12/22/2023 Intermittent asthma without complication, unspecified asthma severity [...] insurance until 3 consecutive months due to [employer] [place]. Could consider compounded semaglutide. We will discuss [...] weight loss medications although cannot submit to [employer] [place] until at least 3 consecutive months. We [...] secondary to the medication not being in [employer] [place]'s formulary. 06/22/2023: Weight: 287.3 lbs, BMI: 42.42. [...] over to [employer] pending health insurance coverage. #Hypertension: Continue lisinopril 40 mg. Patient declined symptoms at this time. Blood pressure continues to be elevated. Following with PCP in regards to this. #Depression: Taking escitalopram 5 mg with compliance, without any side effects. Patient does follow with psychiatry. #Asthma: Taking montelukast 10 mg, as well as Advair without any concern. Follow-up in December, sooner as needed. All questions answered to patients satisfaction. Patient verbalized understanding of diagnosis and treatments explained. To call sooner prior to next visit it any questions/concerns arise. Case discussed with collaborating physician Eric Moe who reviewed the assessment and plan. Chart, medications, labs, vital signs reviewed. Dictation was accomplished with the use of [employer] voice recognition software, prone to medical misidentifications [...] insurance until 3 consecutive months due to [facility]. Could consider compounded semaglutide. We will discuss [...] weight loss medications although cannot submit to [employer] [place] until at least 3 consecutive months. We [...] to the medication not being in health [place]'s formulary. 06/22/2023: Weight: 287.3 lbs, BMI: 42.42. [...] Dictation was accomplished with the use of [employer] voice recognition software, prone to medical misidentifications and grammatical errors. This is unintentional and the practitioner does try to identify and correct these, but some could still be present. Please do not hesitate to contact practitioner for clarification. 12/22/2023 Hypertension, unspecified type (ICD-10 - I10) Bill [...] insurance until 3 consecutive months due to [employer] [place]. Could consider compounded semaglutide. We will discuss [...] weight loss medications although cannot submit to [employer] [place] until at least 3 consecutive months. We [...] to the medication not being in health [place]'s formulary. 06/22/2023: Weight: 287.3 lbs, BMI: 42.42. [...] over to [employer] pending health insurance coverage. #Hypertension: Continue lisinopril 40 mg. Patient declined symptoms at this time. Blood pressure continues to be elevated. Following with PCP in regards to this. #Depression: Taking escitalopram 5 mg with compliance, without any side effects. Patient does follow with psychiatry. #Asthma: Taking montelukast 10 mg, as well as Advair without any concern. Follow-up in December, sooner as needed. All questions answered to patients satisfaction. Patient verbalized understanding of diagnosis and treatments explained. To call sooner prior to next visit it any questions/concerns arise. Case discussed with collaborating physician Eric Moe who reviewed the assessment and plan. Chart, medications, labs, vital signs reviewed. Dictation was accomplished with the use of [employer] voice recognition software, prone to medical misidentifications and grammatical errors. This is unintentional and the practitioner does try to identify and correct these, but some could still be present. Please do not hesitate to contact practitioner for clarification. 10/28/2023 Depression, unspecified depression type (ICD-10 - F32.A) [...] insurance until 3 consecutive months due to [employer] [place]. Could consider compounded semaglutide. We will discuss [...] weight loss medications although cannot submit to [employer] [place] until at least 3 consecutive months. We [...] secondary to the medication not being in [employer] [place]'s formulary. 06/22/2023: Weight: 287.3 lbs, BMI: 42.42. [...] above average muscle mass on body scan. #Hypertension: Continue lisinopril 30 mg. Patient declined symptoms at this time. Encouraged to continue following with PCP for this. #Depression: Taking escitalopram 5 mg with compliance, without any side effects. Patient does follow with psychiatry. #Asthma: Taking montelukast 10 mg, as well as Advair without any concern. Follow-up in December, sooner as needed. All questions answered to patients satisfaction. Patient verbalized understanding of diagnosis and treatments explained. To call sooner prior to next visit it any questions/concerns arise. Case discussed with collaborating physician Eric Moe who reviewed the assessment and plan. Chart, medications, labs, vital signs reviewed. Dictation was accomplished with the use of [employer] voice recognition software, prone to medical misidentifications and grammatical errors. This is unintentional and the practitioner does try to identify and correct these, but some could still be present. Please do not hesitate to contact practitioner for clarification. 07/30/2023 Hypertension, unspecified type (ICD-10 - I10) Bill [...] insurance until 3 consecutive months due to [employer]. Could consider compounded semaglutide. We will discuss [...] weight loss medications although cannot submit to [employer] until at least 3 consecutive months. We [...] secondary to the medication not being in [employer] [place]'s formulary. 06/22/2023: Weight: 287.3 lbs, BMI: 42.42. [...] with stress. Patient agreeable to tx plan. #Hypertension: Continue lisinopril 30 mg. Patient declined symptoms at this time. Encouraged to continue following with PCP for this.Blood pressure mildly elevated today. #Depression: Taking escitalopram 5 mg with compliance, without any side effects. Patient does follow with psychiatry. #Asthma: Taking montelukast 10 mg, as well as Advair without any concern. Follow-up in 4 Weeks, sooner as needed. All questions answered to patients satisfaction. Patient verbalized understanding of diagnosis and treatments explained. To call sooner prior to next visit it any questions/concerns arise. Case discussed with collaborating physician Eric Moe who reviewed the assessment and plan. Chart, medications, labs, vital signs reviewed. Dictation was accomplished with the use of [employer] voice recognition software, prone to medical misidentifications and grammatical errors. This is unintentional and the practitioner does try to identify and correct these, but some could still be present. Please do not hesitate to contact practitioner for clarification. 09/08/2023 Hypertension, unspecified type (ICD-10 - I10) Bill [...] insurance until 3 consecutive months due to [employer] [place]. Could consider compounded semaglutide. We will discuss [...] weight loss medications although cannot submit to [employer] [place] until at least 3 consecutive months. We [...] to the medication not being in health [place]'s formulary. 06/22/2023: Weight: 287.3 lbs, BMI: 42.42. [...] per week. Patient sleeping well, drinking water. #Hypertension: Continue lisinopril 30 mg. Patient declined symptoms at this time. Encouraged to continue following with PCP for this. #Depression: Taking escitalopram 5 mg with compliance, without any side effects. Patient does follow with psychiatry. #Asthma: Taking montelukast 10 mg, as well as Advair without any concern. Follow-up in 4 to 6 weeks, sooner as needed. All questions answered to patients satisfaction. Patient verbalized understanding of diagnosis and treatments explained. To call sooner prior to next visit it any questions/concerns arise. Case discussed with collaborating physician Eric Moe who reviewed the assessment and plan. Chart, medications, labs, vital signs reviewed. Dictation was accomplished with the use of [employer] voice recognition software, prone to medical misidentifications and grammatical errors. This is unintentional and the practitioner does try to identify and correct these, but some could still be present. Please do not hesitate to contact practitioner for clarification. 06/22/2023 Hypertension, unspecified type (ICD-10 - I10) Bill [...] insurance until 3 consecutive months due to [facility]. Could consider compounded semaglutide. We will discuss [...] weight loss medications although cannot submit to [employer] [place] until at least 3 consecutive months. We [...] to the medication not being in health [place]'s formulary. 06/22/2023: Weight: 287.3 lbs, BMI: 42.42. He took Wegovy 0.25 for 4 weeks, followed by a 2 week period without medication. Patient advised on improving diet, reducing sweets, choosing low carbohydrate snack, adequate hydration, continuing his weightlifting, walking 3x weekly, sleep hygiene, stress management . We will increase Wegovy to 0.5 mg. Follow up with body scan in 4 weeks. #Hypertension: Continue lisinopril 30 mg. Patient declined symptoms at this time. Encouraged to continue following with PCP for this. #Depression: Taking escitalopram 5 mg with compliance, without any side effects. Patient does follow with psychiatry. #Asthma: Taking montelukast 10 mg, as well as Advair without any concern. Time spent with patient 30 minutes with greater than 50% on patient education and care coordination. Follow-up in 6 weeks, sooner as needed All quetsions answered to patients satisfaction. Patient verbalized understanding of diagnosis and treatments explained. To call sooner prior to next visit it any questions/concerns arise. Case discussed with collaborating physician Eric Moe who reviewed the assessment and plan. Chart, medications, labs, vital signs reviewed. Dictation was accomplished with the use of [employer] voice recognition software, prone to medical misidentifications and grammatical errors. This is unintentional and the practitioner does try to identify and correct these, but some could still be present. Please do not hesitate to contact practitioner for clarification. 05/11/2023 Hypertension, unspecified type (ICD-10 - I10) Bill [...] insurance until 3 consecutive months due to [employer] [place]. Could consider compounded semaglutide. We will discuss [...] weight loss medications although cannot submit to [employer] [place] until at least 3 consecutive months. We [...] secondary to the medication not being in [employer] [place]'s formulary. #Hypertension: Continue lisinopril 30 mg. Patient declined symptoms at this time. Encouraged to continue following with PCP for this. #Depression: Taking escitalopram 5 mg with compliance, without any side effects. Patient does follow with psychiatry. #Asthma: Taking montelukast 10 mg, as well as Advair without any concern. Time spent with patient 30 minutes with greater than 50% on patient education and care coordination. Follow-up in 6 weeks, sooner as needed All quetsions answered to patients satisfaction. Patient verbalized understanding of diagnosis and treatments explained. To call sooner prior to next visit it any questions/concerns arise. Case discussed with collaborating physician Eric Moe who reviewed the assessment and plan. Chart, medications, labs, vital signs reviewed. Dictation was accomplished with the use of [employer] voice recognition software, prone to medical misidentifications [...] insurance until 3 consecutive months due to [employer] [place]. Could consider compounded semaglutide. We will discuss [...] weight loss medications although cannot submit to [employer] [place] until at least 3 consecutive months. We [...] secondary to the medication not being in [employer] [place]'s formulary. 06/22/2023: Weight: 287.3 lbs, BMI: 42.42. [...] Dictation was accomplished with the use of [employer] voice recognition software, prone to medical misidentifications and grammatical errors. This is unintentional and the practitioner does try to identify and correct these, but some could still be present. Please do not hesitate to contact practitioner for clarification. 06/22/2023 Depression, unspecified depression type (ICD-10 - F32.A) [...] insurance until 3 consecutive months due to [employer]. Could consider compounded semaglutide. We will discuss [...] weight loss medications although cannot submit to [employer] until at least 3 consecutive months. We [...] secondary to the medication not being in [employer]'s formulary. 06/22/2023: Weight: 287.3 lbs, BMI: 42.42. He took Wegovy 0.25 for 4 weeks, followed by a 2 week period without medication. Patient advised on improving diet, reducing sweets, choosing low carbohydrate snack, adequate hydration, continuing his weightlifting, walking 3x weekly, sleep hygiene, stress management . We will increase Wegovy to 0.5 mg. Follow up with body scan in 4 weeks. #Hypertension: Continue lisinopril 30 mg. Patient declined symptoms at this time. Encouraged to continue following with PCP for this. #Depression: Taking escitalopram 5 mg with compliance, without any side effects. Patient does follow with psychiatry. #Asthma: Taking montelukast 10 mg, as well as Advair without any concern. Time spent with patient 30 minutes with greater than 50% on patient education and care coordination. Follow-up in 6 weeks, sooner as needed All quetsions answered to patients satisfaction. Patient verbalized understanding of diagnosis and treatments explained. To call sooner prior to next visit it any questions/concerns arise. Case discussed with collaborating physician Eric Moe who reviewed the assessment and plan. Chart, medications, labs, vital signs reviewed. Dictation was accomplished with the use of [employer] voice recognition software, prone to medical misidentifications and grammatical errors. This is unintentional and the practitioner does try to identify and correct these, but some could still be present. Please do not hesitate to contact practitioner for clarification. 05/11/2023 Depression, unspecified depression type (ICD-10 - F32.A) [...] insurance until 3 consecutive months due to [employer] [place]. Could consider compounded semaglutide. We will discuss [...] weight loss medications although cannot submit to [employer] [place] until at least 3 consecutive months. We [...] to the medication not being in health [employer]'s formulary. #Hypertension: Continue lisinopril 30 mg. Patient declined symptoms at this time. Encouraged to continue following with PCP for this. #Depression: Taking escitalopram 5 mg with compliance, without any side effects. Patient does follow with psychiatry. #Asthma: Taking montelukast 10 mg, as well as Advair without any concern. Time spent with patient 30 minutes with greater than 50% on patient education and care coordination. Follow-up in 6 weeks, sooner as needed All quetsions answered to patients satisfaction. Patient verbalized understanding of diagnosis and treatments explained. To call sooner prior to next visit it any questions/concerns arise. Case discussed with collaborating physician Eric Moe who reviewed the assessment and plan. Chart, medications, labs, vital signs reviewed. Dictation was accomplished with the use of [employer] voice recognition software, prone to medical misidentifications and grammatical errors. This is unintentional and the practitioner does try to identify and correct these, but some could still be present. Please do not hesitate to contact practitioner for clarification. 07/30/2023 Depression, unspecified depression type (ICD-10 - F32.A) [...] insurance until 3 consecutive months due to [employer]. Could consider compounded semaglutide. We will discuss [...] weight loss medications although cannot submit to [employer] until at least 3 consecutive months. We [...] secondary to the medication not being in [employer] [place]'s formulary. 06/22/2023: Weight: 287.3 lbs, BMI: 42.42. [...] with stress. Patient agreeable to tx plan. #Hypertension: Continue lisinopril 30 mg. Patient declined symptoms at this time. Encouraged to continue following with PCP for this.Blood pressure mildly elevated today. #Depression: Taking escitalopram 5 mg with compliance, without any side effects. Patient does follow with psychiatry. #Asthma: Taking montelukast 10 mg, as well as Advair without any concern. Follow-up in 4 Weeks, sooner as needed. All questions answered to patients satisfaction. Patient verbalized understanding of diagnosis and treatments explained. To call sooner prior to next visit it any questions/concerns arise. Case discussed with collaborating physician Eric Moe who reviewed the assessment and plan. Chart, medications, labs, vital signs reviewed. Dictation was accomplished with the use of [employer] voice recognition software, prone to medical misidentifications and grammatical errors. This is unintentional and the practitioner does try to identify and correct these, but some could still be present. Please do not hesitate to contact practitioner for clarification. 09/08/2023 Depression, unspecified depression type (ICD-10 - F32.A) [...] insurance until 3 consecutive months due to [employer] [place]. Could consider compounded semaglutide. We will discuss [...] weight loss medications although cannot submit to [employer] [place] until at least 3 consecutive months. We [...] to the medication not being in health [employer]'s formulary. 06/22/2023: Weight: 287.3 lbs, BMI: 42.42. [...] per week. Patient sleeping well, drinking water. #Hypertension: Continue lisinopril 30 mg. Patient declined symptoms at this time. Encouraged to continue following with PCP for this. #Depression: Taking escitalopram 5 mg with compliance, without any side effects. Patient does follow with psychiatry. #Asthma: Taking montelukast 10 mg, as well as Advair without any concern. Follow-up in 4 to 6 weeks, sooner as needed. All questions answered to patients satisfaction. Patient verbalized understanding of diagnosis and treatments explained. To call sooner prior to next visit it any questions/concerns arise. Case discussed with collaborating physician Eric Moe who reviewed the assessment and plan. Chart, medications, labs, vital signs reviewed. Dictation was accomplished with the use of [employer] voice recognition software, prone to medical misidentifications and grammatical errors. This is unintentional and the practitioner does try to identify and correct these, but some could still be present. Please do not hesitate to contact practitioner for clarification. 12/22/2023 Depression, unspecified depression type (ICD-10 - F32.A) [...] [facility] Could consider compounded semaglutide. We will discuss [...] weight loss medications although cannot submit to [employer] [place] until at least 3 consecutive months. We [...] to the medication not being in health [employer]'s formulary. 06/22/2023: Weight: 287.3 lbs, BMI: 42.42. [...] over to [employer] pending health insurance coverage. #Hypertension: Continue lisinopril 40 mg. Patient declined symptoms at this time. Blood pressure continues to be elevated. Following with PCP in regards to this. #Depression: Taking escitalopram 5 mg with compliance, without any side effects. Patient does follow with psychiatry. #Asthma: Taking montelukast 10 mg, as well as Advair without any concern. Follow-up in December, sooner as needed. All questions answered to patients satisfaction. Patient verbalized understanding of diagnosis and treatments explained. To call sooner prior to next visit it any questions/concerns arise. Case discussed with collaborating physician Eric Moe who reviewed the assessment and plan. Chart, medications, labs, vital signs reviewed. Dictation was accomplished with the use of [employer] voice recognition software, prone to medical misidentifications and grammatical errors. This is unintentional and the practitioner does try to identify and correct these, but some could still be present. Please do not hesitate to contact practitioner for clarification. PLAN OF TREATMENT Pending Test Test Name Order Date HEMOGLOBIN A1c 10/16/2022 INSULIN 10/16/2022 Insurance Providers Payer Name Payer Address Payer Phone Subscriber Number Group Number Insured Name Patient Relationship to Insured Coverage Start Date Coverage End Date [facility] [address] [place] [address] [id number] Bill Ham Self - patient is the insured MEDICATIONS ADMINISTERED Medication Instructions Date of Administration Dosage Notes Semaglutide 11/17/2022 sema 0.25mg Semaglutide 11/24/2022 lot# [id number] 0.25mg Semaglutide 12/01/2022 sema 0.25mg Semaglutide 12/08/2022 lot# [id number] 0.25mg Semaglutide 12/18/2022 0.5 mg sema .5mg MEDICAL (GENERAL) HISTORY Medical History History ICD Code depression hypertension asthma sleep apnea on CPAP obesity
== END 2024-04-14 16:39 | disposition home or self-care (01) ==
PROVIDERS: PCP Physician Assistant; Visit Provider Physician Assistant
DX: Z00.00 Encounter for general adult medical examination without abnormal findings (principal); I10 Essential (primary) hypertension; E66.812 Obesity, class 2; Z68.39 Body mass index [BMI] 39.0-39.9, adult; F90.0 Attention-deficit hyperactivity disorder, predominantly inattentive type; R79.89 Other specified abnormal findings of blood chemistry

== ENCOUNTER → 2024-04-14 16:05 | Outpatient (BNVA) | payer OTHER, SELFPAY | PROVIDERS: PCP Physician Assistant; Visit Provider Physician Assistant | DX: Z00.00 Encounter for general adult medical examination without abnormal findings (principal); Z23 Encounter for immunization; I10 Essential (primary) hypertension; F90.0 Attention-deficit hyperactivity disorder, predominantly inattentive type; E66.812 Obesity, class 2; Z68.35 Body mass index [BMI] 35.0-35.9, adult; E29.1 Testicular hypofunction | CPT/HCPCS: 90471; 90715; 96127 ==

== ENCOUNTER 2024-04-15 11:29 | Outpatient (REF) | payer OTHER, SELFPAY ==
[2024-04-15 12:39] LABS: Estimated Average Glucose 103 mg/dL; Hemoglobin A1C 131.9175 umol/L; Hemoglobin A1c % 5.2 % (<6.0); Total Hemoglobin (HGBA1C) 3941.5724 umol/L
[2024-04-15 13:00] LABS: Microalbum/Creatinine Ratio Ur 10.4 ug/mg cr (<30)
[2024-04-15 13:07] LABS: Alanine Aminotransferase 46 U/L (0-40); Albumin Level 4.4 g/dL (3.5-5.0); Alkaline Phosphatase 56 U/L (39-117); Anion Gap 10 (12-20); Aspartate Amino Transferase 32 U/L (5-37); Bilirubin Total 0.4 mg/dL (0.0-1.0); Blood Urea Nitrogen 14 mg/dL (9-16); Calcium 9.3 mg/dL (8.4-10.2); Carbon Dioxide 27 mmol/L (22-29); Chloride 107 mmol/L (96-108); Estimated Glomerular Filt Rate > 60; Glucose Fasting 82 mg/dL (60-99); Sodium 140 mmol/L (135-145); Total Protein 7.4 g/dL (6.5-8.0)
[2024-04-18 15:32] LABS: Testosterone, Free 75.3 pg/mL (35.0-155.0); Testosterone, Total 284 ng/dL (250-1100)
== END 2024-04-15 11:30 | disposition home or self-care (01) ==
LOC: HO.LAB 11:29
PROVIDERS: PCP Physician Assistant; Visit Provider Physician Assistant
DX: E29.1 Testicular hypofunction (principal); R73.02 Impaired glucose tolerance (oral); I10 Essential (primary) hypertension
CPT/HCPCS: 36415; 80053; 82043; 82570; 83036; 84402; 84403

== ENCOUNTER 2024-06-13 15:24 | Outpatient (AMB) | payer OTHER, SELFPAY ==
--- NOTE | 2024-06-13 15:45 | MHC.PC.OV ---
Vital Signs 06/13/24 15:46 Height 5 ft 9 in Weight 273 lb 4 oz BMI 40.3 BP 166/100 H Blood Pressure Location Lt brachial Position Sitting Pulse 68 Pulse Source Pulse Oximeter Temp 97.3 F Temp Source Temporal Artery Scan Pulse Oximetry (%) 97 Oxygen Delivery Method Room Air Intake Visit Reasons: f/u HTN Intake Note: Patient is here to follow up on HTN. 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 Accompanied by: Spouse Allergies levofloxacin [From LEVAQUIN] Allergy (Mild, Verified 06/13/24 15:53) HIVES egg Allergy (Unknown, Verified 06/13/24 15:53) Unknown seafood Allergy (Unknown, Verified 06/13/24 15:53) Unknown amlodipine Adverse Reaction (Intermediate, Verified 06/13/24 15:53) ineffective hydrochlorothiazide Adverse Reaction (Intermediate, Verified 06/13/24 15:53) orthostatic hypotension Medication List - Last Reconciled 06/13/24 by Joe Mendieta PA-C albuterol sulfate 90 mcg/actuation (Ventolin HFA) 2 puffs inhalation Q4-6H PRN 30 days albuterol sulfate 2.5 mg (3 mL) continuous nebulization Q4-6H PRN atomoxetine (Strattera) 40 mg PO DAILY 30 days fluticasone propion-salmeterol 250-50 mcg/dose (Advair Diskus) 1 inh inhalation BID 90 days fluticasone propionate 50 mcg/actuation 2 sprays intranasal DAILY PRN losartan 100 mg PO DAILY 30 days montelukast 10 mg PO DAILY Tobacco use date assessed: 06/13/24 Dental Screening Dental Screen Date: 06/13/24 Did you have a dental visit in the last 12 months?: Yes Did you have a dental problem in the last 6 months where you did not have access to dental care?: No Was dental information given to patient?: Patient has dentist HPI f/u HTN HPI Details Patient is a 43-year-old male here today for a follow-up visit. Patient has a past medical history is hypertension, asthma, obesity, hypogonadism been impaired glucose metabolism .. ADD: Of note does have history of ADD and was on stimulant medication for ADD disorder though stopped taking this medication as he felt it became ineffective. Not followed by a psychiatrist anymore. PLAN: He is willing to start non stimulant ADD medication to help him with his attention and focus. .. Hypertension: Blood pressure elevated today in office. He has been out losartan for 2 weeks now and blood pressure seemingly elevated. He does report recent headaches and some blurred vision. He also does report having some issues with his concentration, memory and focus though is unclear if this is due to his uncontrolled ADD disorder. Of note has been sensitive to diureticsand amlodipine has been ineffective PLAN: Will restart his losartan and closely monitor his blood pressure at home. Will consider additional blood pressure medication.. Will try to send for renal ultrasound to evaluate for renal artery stenosis due to his difficult to control blood pressure. .. Asthma: Has been well controlled with daily use of his maintenance inhaler(Wixela) and daily use of montelukast. -> Unclear if the active ingredients in Wixela could be causing his hypertension .. Obesity: He does understand his BMI is over 40 and will continue working on being more physically active and adapting to better eating habits to reduce his weight. [facility], [facility] Medical History Allergic rhinitis Morbid obesity Desensitization to allergy shot Fatty liver Anemia Anxiety Obstructive sleep apnea Asthma Surgical History History of vasectomy Family History Father Hypertension Hyperlipidemia Mother No problems noted. Maternal Grandmother Myocardial infarction Maternal Grandfather Testicular cancer Paternal Grandmother Pancreatic cancer Paternal Grandfather Colon cancer Paternal Aunt Colon cancer Brother Bipolar disorder Other Mental health disorder Social History Housing: House Alcohol intake: former Year quit: 2021 Patient Tobacco Use Status: Never used Tobacco Years Smoked: teenage stopped e-Cigarette/Vaping Use: Never Used Second Hand Smoke Exposure: No service: No Current occupational status: employed Current occupation: [employer] Cognitive needs: No Hearing needs: No Vision needs: No Questionnaire PHQ-9 Over the last 2 weeks, how often have you been bothered by any of the following problems? 1. Little interest or pleasure in doing things: not at all 2. Feeling down, depressed, or hopeless: not at all 3. Trouble falling or staying asleep, or sleeping too much: not at all 4. Feeling tired or having little energy: not at all 5. Poor appetite or overeating: not at all 6. Feeling bad about yourself - or that you are a failure or have let yourself or your family down: not at all 7. Trouble concentrating on things, such as reading the newspaper or watching television: not at all 8. Moving or speaking so slowly that other people could have noticed. Or the opposite - being so fidgety or restless that you have been moving around a lot more than usual: not at all 9. Thoughts that you would be better off or of hurting yourself in some way: not at all Total score: 0 Depression Screening Interpretation: Negative Depression Screening Done: Yes 08153 - PHQ-9 Billing: Yes Source: Developed by Drs. Miquel Regan, Gloria Castle, Lex Coello and colleagues, with an educational cheo from [employer]. Thrive Questionnaire Date Thrive assessed: 06/13/24 AUDIT C Alcohol Use Questionnaire (AUDIT-C) 1. How often do you have a drink containing alcohol?: Monthly or less 2. How many drinks containing alcohol do you have on a typical day when you are drinking?: 1 or 2 Total Score: 1 MO-7 AMB Questionnaire MO-7 Date MO - 7 assessed: 06/13/24 Feeling nervous, anxious, or on edge: 0 = Not at all Not being able to stop or control worryin = Not at all Worrying too much about different things: 0 = Not at all Trouble relaxin = Not at all Being so restless that it is hard to sit still: 0 = Not at all Becoming easily annoyed or irritable: 0 = Not at all Feeling afraid as if something awful might happen: 0 = Not at all Total MO-7 score (0-4 normal; 5-9 mild; 10-14 moderate; 15-21 severe): 0 Source: Developed by Drs. Miquel Regan, Gloria Castle, Lex Coello and colleagues, with an educational cheo from [employer]. MO-7 Assessment Billing MO-7 Assessment Tool: MO-7 Assessment 12207 Review of Systems Const Denies headache(s) Eyes Denies loss of vision ENT Denies vertigo, Denies dizziness, Denies headache(s) and Denies sore throat Card Denies chest pain, Denies leg edema and Denies lightheadedness Resp Denies cough, Denies hemoptysis and Denies wheezing GI Denies abdominal pain, Denies melena, Denies constipation, Denies diarrhea and Denies vomiting Denies dysuria, Denies urinary frequency and Denies urinary urgency Musc Denies arthralgias, Denies joint swelling, Denies numbness and Denies tingling Neuro Denies Abnormal speech present, Denies behavioral changes, Denies vertigo, Denies dizziness, Denies headache(s), Denies loss of vision, Denies memory loss, Denies numbness and Denies tingling Psych Denies anxiety, Denies behavioral changes, Denies depression, Denies memory loss and Denies panic attacks Christian/Lymph Denies easy bleeding and Denies easy bruising Aller/Immun Denies wheezing Physical exam (Primary Care) Vital Signs: Last Vital Signs Temp 97.3 F 06/13/24 15:46 Pulse 68 06/13/24 15:46 BP 166/100 H 06/13/24 15:46 Pulse Ox 97 06/13/24 15:46 Oxygen Delivery Method Room Air 06/13/24 15:46 BMI result Body Mass Index 40.3 Tobacco/Smoking Status: Tobacco use Status Tobacco use date assessed 06/13/24 06/13/24 15:52 Patient Tobacco Use Status Never used Tobacco 06/13/24 15:52 e-Cigarette/Vaping Use Never Used 06/13/24 15:52 PHQ-9: PHQ-9 Score PHQ-9: Total score 0 06/13/24 15:55 Depression Screening Interpretation: Negative Thrive Assessment: Date of Thrive Assessment Date Thrive assessed 06/13/24 06/13/24 15:52 Const General: healthy appearing, no acute distress, alert and awake Nutritional Appearance: well nourished Orientation/consciousness: oriented to person, oriented to place and oriented to time HENMT Ears: TM's normal bilaterally General nose exam: Normal nasal mucous membranes and turbinates present Eyes Conjunctivae: conjunctivae normal Sclerae: sclerae normal Pupils: Equal, round and reactive pupils present Neck Neck: Yes no lymphadenopathy and Yes no JVD Thyroid: Thyroid normal Carotids: no bruits Resp Effort & Inspection: normal respiratory effort and not tachypneic Auscultation: no crackles, no rales, no rhonchi and no wheezes Cardio Rate: regular rate Rhythm: regular rhythm Heart sounds: no murmurs and normal S1 and S2 GI Palpation (GI): Soft to palpation, nontender, no hepatomegaly and no splenomegaly Auscultation: normal bowel sounds Skin General skin exam: no rashes or lesions noted and dry skin Neuro General: oriented to person, oriented to place and oriented to time Cranial nerves: Yes Equal, round and reactive pupils present Speech: No Abnormal speech present Gait exam (Neuro): Normal gait present Motor exam (neuro): no tremor noted Extrem Right upper extremity: full ROM Left upper extremity: full ROM Right lower extremity: full ROM; no edema Left lower extremity: full ROM; no edema Psych Mental Status: mental status grossly normal Speech and movement: Normal speech and movement present Affect: normal affect Attitude: cooperative Thought process: Normal thought process present Coding Level of Care Code Est Pt Level 4 (85452) Diagnoses Primary hypertension I10 Hypertension type: primary hypertension Memory deficit R41.3 Attention deficit hyperactivity disorder (ADHD), predominantly inattentive type F90.0 Attention deficit-hyperactivity disorder type: predominantly inattentive Additional Codes PHQ-9 - 11676 - PHQ-9 Billing: Yes ([id number]) MO-7 Assessment Billing - MO-7 Assessment Tool: MO-7 Assessment 24615 ([id number]) Assessment & Plan Assessment & Plan (1) HTN (hypertension): Code(s): I10 - Essential (primary) hypertension Category: Medical Qualifiers: Hypertension type: primary hypertension Qualified Code(s): I10 - Essential (primary) hypertension Plan: Patient's blood pressure elevated today in office. Has been on highest dose of lisinopril quite some time though blood pressure still remains elevated. Will transition to losartan in hopes this will work better for him. Has had side effects to both amlodipine and hydrochlorothiazide. If losartan not effective will consider additional nifedipine or hydralazine. Will also send for renal ultrasound to evaluate for renal artery stenosis due to his difficult to control blood pressure. (2) Memory deficit: Code(s): R41.3 - Other amnesia Category: Medical Plan: Reports having memory deficit and word finding and some headaches lately in the setting of high blood pressure. Will send for MRI brain to rule out any intracranial pathology (3) ADHD: Code(s): F90.9 - Attention-deficit hyperactivity disorder, unspecified type Category: Medical Qualifiers: Attention deficit-hyperactivity disorder type: predominantly inattentive Qualified Code(s): F90.0 - Attention-deficit hyperactivity disorder, predominantly inattentive type Plan: As per HPI patient has been reporting mental fog and difficulty with attention. Has not been treated for his ADD for quite some time now. Was seeing a psychiatrist and was receiving stimulant medication for his ADHD disorder. He is willing to try non stimulant medication to help him with his attention and focus. Will try Strattera 40 mg and up titrate per response to usual effective dose of 80 mg. Orders: Orders US renal doppler 06/13/24 I10 - Essential (primary) hypertension US renal BI 06/13/24 I10 - Essential (primary) hypertension MR head/brain wo con 06/13/24 R41.3 - Other amnesia Medications: Refilled atomoxetine (Strattera) 40 mg PO DAILY 30 caps 1RF 30 days F90.0 - Attention-deficit hyperactivity disorder, predominantly inattentive type Patient Instructions: Goal: Blood pressure to be below 140/90 Barriers: Adherence to physical activity and healthy eating at
[2024-06-13 15:46] VITALS: BP 166/100; PULSE 68; TEMP 36.3; O2SAT 97; BMI 40.3
--- OUTSIDE RECORDS SUMMARY | 2024-06-13 17:40 | XMS_ITS ---
Author Organization [facility] Address [address] [place] [address] Care Team Providers Care Ship Washer Name Role Phone CRISTINO DOWLING Unavailable [phone] REASON FOR VISIT wegovy approval Encounters Encounter Location Date Provider Diagnosis [facility] [address] [place] [address] 12/23/2023 CRISTINO DOWLING PLAN OF TREATMENT No Information Progress Notes * Josefina HAMOB:1980 ( 43 yo M)Acc No.[id number]:12/23/2023 Patient:??Doc HAM :1980?Age:43 Y?Sex:Luis moss Address: [place] [address] * true * Date:??
--- OUTSIDE RECORDS SUMMARY | 2024-06-13 17:41 | XMS_ITS ---
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 6 week f/u. * Medical History:?? Objective: Assessment: Plan: * Treatment: * Images: Billing Information: * Visit Code:?? * Procedure Codes:?? * Sign off status: Pending * Provider:??CRISTINO DOWLING PA-C Date:??07/2023
--- OUTSIDE RECORDS SUMMARY | 2024-06-13 17:41 | XMS_ITS ---
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 Could consider compounded semaglutide. We will discuss [...] weight loss medications although cannot submit to [employer] until at least 3 consecutive months. We [...] secondary to the medication not being in [employer] [facility] [employer]'s formulary. 06/22/2023: Weight: 287.3 lbs, BMI: 42.42. [...] arise. Case discussed with collaborating physician Eric oMe who reviewed the assessment and plan. Chart, medications, labs, vital signs reviewed. Dictation was accomplished with the use of [employer] voice recognition software, prone to medical misidentifications [...] insurance until 3 consecutive months due to [employer]. Could consider compounded semaglutide. We will discuss [...] weight loss medications although cannot submit to [employer] until at least 3 consecutive months. We [...] secondary to the medication not being in [employer]'s formulary. 06/22/2023: Weight: 287.3 lbs, BMI: 42.42. [...] Dictation was accomplished with the use of [employer] voice recognition software, prone to medical misidentifications [...] insurance until 3 consecutive months due to [employer]. Could consider compounded semaglutide. We will discuss [...] weight loss medications although cannot submit to [employer] until at least 3 consecutive months. We [...] to the medication not being in [facility] [employer] formulary. 06/22/2023: Weight: 287.3 lbs, BMI: 42.42. [...] Dictation was accomplished with the use of [employer] voice recognition software, prone to medical misidentifications [...] insurance until 3 consecutive months due to [employer]. Could consider compounded semaglutide. We will discuss [...] weight loss medications although cannot submit to [employer] until at least 3 consecutive months. We [...] to the medication not being in [facility] [employer] formulary. 06/22/2023: Weight: 287.3 lbs, BMI: 42.42. [...] Dictation was accomplished with the use of [employer] voice recognition software, prone to medical misidentifications [...] insurance until 3 consecutive months due to [employer]. Could consider compounded semaglutide. We will discuss [...] weight loss medications although cannot submit to [employer] until at least 3 consecutive months. We [...] to the medication not being in [facility] formulary. 06/22/2023: Weight: 287.3 lbs, BMI: 42.42. [...] Dictation was accomplished with the use of [employer] voice recognition software, prone to medical misidentifications [...] * Josefina HAMOB:1980 ( 43 yo M)Acc No.[id number]:02/08/2024 Patient:??Bill HAM Provider:??CRISTINO DOWLING PA-C :1980?Age:43 Y?Sex:Luis le Date:02/08/2024 Address: [facility] Subjective: * Chief Complaints: * ?1. Pt [...] dm. 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 * [...] insurance until 3 consecutive months due to [employer]. Could consider compounded semaglutide. We will discuss [...] weight loss medications although cannot submit to [employer] until at least 3 consecutive months. We [...] secondary to the medication not being in [employer]'s formulary. 06/22/2023: Weight: 287.3 lbs, BMI: 42.42. [...] Dictation was accomplished with the use of [employer] voice recognition software, prone to medical misidentifications and grammatical errors. This is unintentional and the practitioner does try to identify and correct these, but some could still be present. Please do not hesitate to contact practitioner for clarification. Plan: * Treatment: * Procedure Codes:??98231 P/M CONTENT STRATEGIST, INDIV 15 MIN * Images: Billing Information: * Visit Code:?? 27840 Office Visit, Est Pt., Level 3. * Procedure Codes:?? 97515 P/M CONTENT STRATEGIST, INDIV 15 MIN. * Sign off status: [...]
--- OUTSIDE RECORDS SUMMARY | 2024-06-13 17:41 | XMS_ITS | Patient Health Record ---
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 alcohol: denies tob: denies drug: denies antique furniture repairer alcohol: denies tob: denies drug: denies antique furniture repairer alcohol: denies tob: denies drug: denies antique furniture repairer alcohol: denies tob: denies drug: denies antique furniture repairer alcohol: denies tob: denies drug: denies antique furniture repairer alcohol: denies tob: denies drug: denies antique furniture repairer alcohol: denies tob: denies drug: denies antique furniture repairer alcohol: denies tob: denies drug: denies antique furniture repairer alcohol: denies tob: denies drug: denies antique furniture repairer alcohol: denies tob: denies drug: denies antique furniture repairer alcohol: denies tob: denies drug: denies antique furniture repairer alcohol: denies tob: denies drug: denies PROBLEMS Problem Type ICD Code Onset Dates Problem Status W/U Status Risk SNOMED Code Notes Problem Hypertension, unspecified type (I10) Active confirmed 60275110 Problem Intermittent asthma without complication, unspecified asthma severity (J45.20) Active confirmed 385525054 VITAL SIGNS Heart Rate 76 /min 02/08/2024 Blood pressure diastolic 88 mm Hg 02/08/2024 Oximetry 99 % 02/08/2024 Height 69 in 02/08/2024 Blood pressure systolic 142 mm Hg 02/08/2024 Weight 262.6 lbs 02/08/2024 BMI 38.78 kg/m2 02/08/2024 Encounters Encounter Location Date Provider Diagnosis [facility] [address] [place] [address] 03/23/2024 CRISTINO JOSEY [facility] [address] [place] [address] 06/22/2023 CRISTINO JOSEY Other obesity E66.8 ; Body mass index (BMI) of 40.1 to 44.9 in adult Z68.41 ; Intermittent asthma without complication, unspecified asthma severity J45.20 ; Hypertension, unspecified type I10 and Depression, unspecified depression type F32.A [facility] [address] [place] [address] 07/30/2023 CRISTINO JOSEY Other obesity E66.8 ; Body mass index (BMI) of 40.1 to 44.9 in adult Z68.41 ; Intermittent asthma without complication, unspecified asthma severity J45.20 ; Hypertension, unspecified type I10 and Depression, unspecified depression type F32.A [facility] [address] [place] [address] 09/08/2023 CRISTINO JOSEY Other obesity E66.8 ; Body mass index (BMI) of 40.1 to 44.9 in adult Z68.41 ; Intermittent asthma without complication, unspecified asthma severity J45.20 ; Hypertension, unspecified type I10 and Depression, unspecified depression type F32.A [facility] [address] [place] [address] 10/28/2023 CRISTINO JOSEY Other obesity E66.8 ; BMI 39.0-39.9,adult Z68.39 ; Intermittent asthma without complication, unspecified asthma severity J45.20 ; Hypertension, unspecified type I10 and Depression, unspecified depression type F32.A [facility] [address] [place] [address] 12/22/2023 CRISTINO JOSEY Other obesity E66.8 ; BMI 39.0-39.9,adult Z68.39 ; Intermittent asthma without complication, unspecified asthma severity J45.20 ; Hypertension, unspecified type I10 and Depression, unspecified depression type F32.A [facility] [address] [place] [address] 02/08/2024 CRISTINO JOSEY Obesity (BMI 30-39.9 ) E66.9 ; BMI 38.0-38.9,adult Z68.38 ; Hypertension, unspecified type I10 ; Intermittent asthma without complication, unspecified asthma severity J45.20 and Depression, unspecified depression type F32.A [facility] [address] [place] [address] 12/23/2023 CRISTINO DOWLING ASSESSMENTS Encounter Date Diagnosis Assessment Notes Treatment Notes Treatment Clinical Notes Section Notes 06/22/2023 Other obesity (ICD-10 - E66.8) Bill [...] insurance until 3 consecutive months due to [employer] [place]. Could consider compounded semaglutide. We will discuss [...] weight loss medications although cannot submit to [employer] [place] until at least 3 consecutive months. We [...] to the medication not being in [facility] [place]. 06/22/2023: Weight: 287.3 lbs, BMI: 42.42. [...] Dictation was accomplished with the use of [employer] voice recognition software, prone to medical misidentifications [...] insurance until 3 consecutive months due to [employer]. Could consider compounded semaglutide. We will discuss [...] weight loss medications although cannot submit to [employer] until at least 3 consecutive months. We [...] secondary to the medication not being in [employer]'s formulary. 06/22/2023: Weight: 287.3 lbs, BMI: 42.42. [...] Dictation was accomplished with the use of [employer] voice recognition software, prone to medical misidentifications [...] insurance until 3 consecutive months due to [employer] [place]. Could consider compounded semaglutide. We will discuss [...] weight loss medications although cannot submit to [employer] [place] until at least 3 consecutive months. We [...] to the medication not being in [facility] [place] formulary. 06/22/2023: Weight: 287.3 lbs, BMI: 42.42. [...] Dictation was accomplished with the use of [employer] voice recognition software, prone to medical misidentifications [...] insurance until 3 consecutive months due to [facility]. Could consider compounded semaglutide. We will [...] weight loss medications although cannot submit to [employer] [place] until at least 3 consecutive months. We [...] to the medication not being in [facility] [place] formulary. 06/22/2023: Weight: 287.3 lbs, BMI: 42.42. [...] Dictation was accomplished with the use of [employer] voice recognition software, prone to medical misidentifications [...] insurance until 3 consecutive months due to [employer] [place]. Could consider compounded semaglutide. We will discuss [...] weight loss medications although cannot submit to [employer] [place] until at least 3 consecutive months. We [...] secondary to the medication not being in [employer]'s formulary. 06/22/2023: Weight: 287.3 lbs, BMI: 42.42. [...] Dictation was accomplished with the use of [employer] voice recognition software, prone to medical misidentifications [...] insurance until 3 consecutive months due to [employer]. Could consider compounded semaglutide. We will discuss [...] weight loss medications although cannot submit to [employer] until at least 3 consecutive months. We [...] secondary to the medication not being in [employer] [place] formulary. 06/22/2023: Weight: 287.3 lbs, BMI: 42.42. [...] Dictation was accomplished with the use of [employer] voice recognition software, prone to medical misidentifications [...] insurance until 3 consecutive months due to [employer]. Could consider compounded semaglutide. We will discuss [...] weight loss medications although cannot submit to [employer] until at least 3 consecutive months. We [...] to the medication not being in [facility] [place] formulary. 06/22/2023: Weight: 287.3 lbs, BMI: 42.42. [...] Dictation was accomplished with the use of [employer] voice recognition software, prone to medical misidentifications [...] insurance until 3 consecutive months due to [employer] [place]. Could consider compounded semaglutide. We will discuss [...] weight loss medications although cannot submit to [employer] [place] until at least 3 consecutive months. We [...] to the medication not being in [facility] [place] formulary. 06/22/2023: Weight: 287.3 lbs, BMI: 42.42. [...] Dictation was accomplished with the use of [employer] voice recognition software, prone to medical misidentifications [...] insurance until 3 consecutive months due to [employer] [place]. Could consider compounded semaglutide. We will discuss [...] weight loss medications although cannot submit to [employer] [place] until at least 3 consecutive months. We [...] to the medication not being in [facility] [place] formulary. 06/22/2023: Weight: 287.3 lbs, BMI: 42.42. [...] Dictation was accomplished with the use of [employer] voice recognition software, prone to medical misidentifications [...] insurance until 3 consecutive months due to [facility]. Could consider compounded semaglutide. We will [...] weight loss medications although cannot submit to [facility] [place] until at least 3 consecutive months. We [...] to the medication not being in [facility] [place] formulary. 06/22/2023: Weight: 287.3 lbs, BMI: 42.42. [...] Dictation was accomplished with the use of [employer] voice recognition software, prone to medical misidentifications [...] insurance until 3 consecutive months due to [employer]. Could consider compounded semaglutide. We will discuss [...] weight loss medications although cannot submit to [employer] until at least 3 consecutive months. We [...] secondary to the medication not being in [employer] [place] formulary. 06/22/2023: Weight: 287.3 lbs, BMI: 42.42. [...] Dictation was accomplished with the use of [employer] voice recognition software, prone to medical misidentifications [...] insurance until 3 consecutive months due to [employer]. Could consider compounded semaglutide. We will discuss [...] weight loss medications although cannot submit to [employer] until at least 3 consecutive months. We [...] secondary to the medication not being in [employer] [place] formulary. 06/22/2023: Weight: 287.3 lbs, BMI: 42.42. [...] Dictation was accomplished with the use of [employer] voice recognition software, prone to medical misidentifications [...] insurance until 3 consecutive months due to [employer] [place]. Could consider compounded semaglutide. We will discuss [...] weight loss medications although cannot submit to [employer] until at least 3 consecutive months. We [...] to the medication not being in [facility] [place] formulary. 06/22/2023: Weight: 287.3 lbs, BMI: 42.42. [...] Dictation was accomplished with the use of [employer] voice recognition software, prone to medical misidentifications [...] insurance until 3 consecutive months due to [employer] [place]. Could consider compounded semaglutide. We will discuss [...] weight loss medications although cannot submit to [employer] [place] until at least 3 consecutive months. We [...] to the medication not being in [facility] [place] formulary. 06/22/2023: Weight: 287.3 lbs, BMI: 42.42. [...] Dictation was accomplished with the use of [employer] voice recognition software, prone to medical misidentifications [...] insurance until 3 consecutive months due to [employer] [place]. Could consider compounded semaglutide. We will discuss [...] weight loss medications although cannot submit to [employer] [place] until at least 3 consecutive months. We [...] to the medication not being in [facility] [place] formulary. 06/22/2023: Weight: 287.3 lbs, BMI: 42.42. [...] Dictation was accomplished with the use of [employer] voice recognition software, prone to medical misidentifications [...] insurance until 3 consecutive months due to [employer]. Could consider compounded semaglutide. We will discuss [...] weight loss medications although cannot submit to [employer] until at least 3 consecutive months. We [...] secondary to the medication not being in [employer]'s formulary. 06/22/2023: Weight: 287.3 lbs, BMI: 42.42. [...] Dictation was accomplished with the use of [employer] voice recognition software, prone to medical misidentifications [...] insurance until 3 consecutive months due to [employer] [place]. Could consider compounded semaglutide. We will discuss [...] weight loss medications although cannot submit to [facility] until at least 3 consecutive months. [...] to the medication not being in [facility] [place] formulary. 06/22/2023: Weight: 287.3 lbs, BMI: 42.42. [...] Dictation was accomplished with the use of [employer] voice recognition software, prone to medical misidentifications [...] insurance until 3 consecutive months due to [employer]. Could consider compounded semaglutide. We will discuss [...] weight loss medications although cannot submit to [employer] until at least 3 consecutive months. We [...] secondary to the medication not being in [employer]'s formulary. 06/22/2023: Weight: 287.3 lbs, BMI: 42.42. [...] Dictation was accomplished with the use of [employer] voice recognition software, prone to medical misidentifications [...] insurance until 3 consecutive months due to [employer]. Could consider compounded semaglutide. We will discuss [...] weight loss medications although cannot submit to [employer] until at least 3 consecutive months. We [...] secondary to the medication not being in [employer] [place] formulary. 06/22/2023: Weight: 287.3 lbs, BMI: 42.42. [...] Dictation was accomplished with the use of [employer] voice recognition software, prone to medical misidentifications [...] insurance until 3 consecutive months due to [employer] [place]. Could consider compounded semaglutide. We will discuss [...] weight loss medications although cannot submit to [employer] [place] until at least 3 consecutive months. We [...] secondary to the medication not being in [employer] [place] formulary. 06/22/2023: Weight: 287.3 lbs, BMI: 42.42. [...] Dictation was accomplished with the use of [employer] voice recognition software, prone to medical misidentifications [...] insurance until 3 consecutive months due to [employer]. Could consider compounded semaglutide. We will discuss [...] weight loss medications although cannot submit to [employer] until at least 3 consecutive months. We [...] secondary to the medication not being in [employer]'s formulary. 06/22/2023: Weight: 287.3 lbs, BMI: 42.42. [...] Dictation was accomplished with the use of [employer] voice recognition software, prone to medical misidentifications [...] insurance until 3 consecutive months due to [employer] [place]. Could consider compounded semaglutide. We will discuss [...] weight loss medications although cannot submit to [employer] [place] until at least 3 consecutive months. We [...] to the medication not being in [facility] [place] formulary. 06/22/2023: Weight: 287.3 lbs, BMI: 42.42. [...] Dictation was accomplished with the use of [employer] voice recognition software, prone to medical misidentifications [...] insurance until 3 consecutive months due to [employer]. Could consider compounded semaglutide. We will discuss [...] weight loss medications although cannot submit to [employer] until at least 3 consecutive months. We [...] secondary to the medication not being in [employer]'s formulary. 06/22/2023: Weight: 287.3 lbs, BMI: 42.42. [...] Dictation was accomplished with the use of [employer] voice recognition software, prone to medical misidentifications [...] insurance until 3 consecutive months due to [employer]. Could consider compounded semaglutide. We will discuss [...] weight loss medications although cannot submit to [employer] until at least 3 consecutive months. We [...] secondary to the medication not being in [employer]'s formulary. 06/22/2023: Weight: 287.3 lbs, BMI: 42.42. [...] Dictation was accomplished with the use of [employer] voice recognition software, prone to medical misidentifications [...] insurance until 3 consecutive months due to [employer] [place]. Could consider compounded semaglutide. We will discuss [...] weight loss medications although cannot submit to [employer] [place] until at least 3 consecutive months. We [...] secondary to the medication not being in [employer] [place]'s formulary. 06/22/2023: Weight: 287.3 lbs, BMI: 42.42. [...] Dictation was accomplished with the use of [employer] voice recognition software, prone to medical misidentifications [...] insurance until 3 consecutive months due to [employer]. Could consider compounded semaglutide. We will discuss [...] weight loss medications although cannot submit to [employer] until at least 3 consecutive months. We [...] secondary to the medication not being in [employer] [place] formulary. 06/22/2023: Weight: 287.3 lbs, BMI: 42.42. [...] Dictation was accomplished with the use of [employer] voice recognition software, prone to medical misidentifications [...] insurance until 3 consecutive months due to [employer]. Could consider compounded semaglutide. We will discuss [...] weight loss medications although cannot submit to [employer] until at least 3 consecutive months. We [...] secondary to the medication not being in [employer] [place]'s formulary. 06/22/2023: Weight: 287.3 lbs, BMI: 42.42. [...] Dictation was accomplished with the use of [employer] voice recognition software, prone to medical misidentifications [...] insurance until 3 consecutive months due to [employer] [place]. Could consider compounded semaglutide. We will discuss [...] weight loss medications although cannot submit to [employer] [place] until at least 3 consecutive months. We [...] secondary to the medication not being in [employer]'s formulary. 06/22/2023: Weight: 287.3 lbs, BMI: 42.42. [...] Dictation was accomplished with the use of [employer] voice recognition software, prone to medical misidentifications [...] insurance until 3 consecutive months due to [employer]. Could consider compounded semaglutide. We will discuss [...] weight loss medications although cannot submit to [employer] [place] until at least 3 consecutive months. We [...] secondary to the medication not being in [employer] [place]'s formulary. 06/22/2023: Weight: 287.3 lbs, BMI: 42.42. [...] Dictation was accomplished with the use of [employer] voice recognition software, prone to medical misidentifications [...] insurance until 3 consecutive months due to [employer]. Could consider compounded semaglutide. We will discuss [...] weight loss medications although cannot submit to [employer] until at least 3 consecutive months. We [...] secondary to the medication not being in [employer]'s formulary. 06/22/2023: Weight: 287.3 lbs, BMI: 42.42. [...] Dictation was accomplished with the use of [employer] voice recognition software, prone to medical misidentifications [...] Insured Coverage Start Date Coverage End Date [facility] [address] [facility] [place] [id number] [phone] [id number] Bill Ham Self - patient is the insured MEDICATIONS ADMINISTERED Medication Instructions Date of Administration Dosage Notes Semaglutide 11/17/2022 sema 0.25mg Semaglutide 11/24/2022 lot# [id number] 0.25mg Semaglutide 12/01/2022 sema 0.25mg Semaglutide 12/08/2022 lot# [id number] 0.25mg Semaglutide 12/18/2022 0.5 mg sema .5mg MEDICAL (GENERAL) HISTORY Medical History History ICD Code depression hypertension asthma sleep apnea on CPAP obesity
== END 2024-06-13 16:34 | disposition home or self-care (01) ==
PROVIDERS: PCP Physician Assistant; Visit Provider Physician Assistant
DX: I10 Essential (primary) hypertension (principal); R41.3 Other amnesia; F90.0 Attention-deficit hyperactivity disorder, predominantly inattentive type

== ENCOUNTER → 2024-06-13 15:24 | Outpatient (BNVA) | payer OTHER, SELFPAY | PROVIDERS: PCP Physician Assistant; Visit Provider Physician Assistant | DX: I10 Essential (primary) hypertension (principal); R41.3 Other amnesia; F90.0 Attention-deficit hyperactivity disorder, predominantly inattentive type | CPT/HCPCS: 96127 ==

== ENCOUNTER 2024-06-16 19:50 | Outpatient (REF) | payer OTHER, SELFPAY ==
--- NOTE | ~2024-06-16 | MR_ITS ---
EXAMINATION: MR BRAIN WITHOUT CONTRAST CLINICAL INFORMATION: Amnesia COMPARISON: No priors. Correlated to CT dated February 03, 2013. TECHNIQUE: MRI of the brain was obtained using routine sequences without contrast. FINDINGS: No restricted diffusion within the brain parenchyma. There is a faint hyperintense T2 FLAIR restricted diffusion within the deep lobe of the left frontal bone. No acute intracranial hemorrhage, mass effect, midline shift, hydrocephalus or herniation. Feliciano-white matter differentiation is normal. No signal abnormality or volume loss in the hippocampi. There is CSF prominence in the right Meckel's cave. Posterior cranial fossa contents demonstrated no signal abnormality or focal lesions. Flow-void signal within the main cerebral vessels is normal. Sellar/suprasellar region is normal. Craniocervical junction is intact and normal. Retention cyst, left maxillary sinus. MR/MR head/brain wo con IMPRESSION: No acute brain abnormality. Normal hippocampi. Focal restricted diffusion signal abnormality, diploe Left frontal bone. Recommend contrast enhancement.. Electronically signed by: Norberto Hameed MD 06/17/2024 08:03 AM JEN
--- OUTSIDE RECORDS SUMMARY | 2024-06-16 19:54 | XMS_ITS ---
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
--- OUTSIDE RECORDS SUMMARY | 2024-06-16 19:54 | XMS_ITS ---
Author Organization [facility] Address [address] [place] [address] Care Team Providers Care Physician Primary Care Sports Medicine Name Role Phone CRISTINO DOWLING Unavailable [phone] REASON FOR VISIT 6 week f/u Encounters Encounter Location Date Provider Diagnosis [facility] [address] [place] [address] 03/23/2024 CRISTINO DOWLING PLAN OF TREATMENT No Information Progress Notes * Josefina HAMOB:1980 ( 43 yo M)Acc No.[id number]:03/23/2024 Patient:??Bill HAM Provider:??CRISTINO DOWLING PA-C :1980?Age:43 Y?Sex:Ma le Date:03/23/2024 Address: [address] [facility] Subjective: * Chief Complaints: * ?1. 6 week f/u. * Medical History:?? Objective: Assessment: Plan: * Treatment: * Images: Billing Information: * Visit Code:?? * Procedure Codes:?? * Sign off status: Pending * Provider:??CRISTINO DOWLING PA-C Date:??07/2023
--- OUTSIDE RECORDS SUMMARY | 2024-06-16 19:54 | XMS_ITS | Patient Health Record ---
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 tob: denies drug: denies 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 tob: denies drug: denies 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 tob: denies drug: denies 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 tob: denies drug: denies 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 tob: denies drug: denies 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 tob: denies drug: denies 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 tob: denies drug: denies 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 tob: denies drug: denies PROBLEMS Problem Type ICD Code Onset Dates Problem Status W/U Status Risk SNOMED Code Notes Problem Hypertension, unspecified type (I10) Active confirmed 42712087 Problem Intermittent asthma without complication, unspecified asthma severity (J45.20) Active confirmed 591277330 VITAL SIGNS Heart Rate 76 /min 02/08/2024 Blood pressure diastolic 88 mm Hg 02/08/2024 Oximetry 99 % 02/08/2024 Height 69 in 02/08/2024 Blood pressure systolic 142 mm Hg 02/08/2024 Weight 262.6 lbs 02/08/2024 BMI 38.78 kg/m2 02/08/2024 Encounters Encounter Location Date Provider Diagnosis [facility] [address] [place] [address] 03/23/2024 CRISTINO JOSEY [facility] [address] [place] [address] 06/22/2023 CRISTINO JOSEY Other obesity E66.8 ; Body mass index (BMI) of 40.1 to 44.9 in adult Z68.41 ; Intermittent asthma without complication, unspecified asthma severity J45.20 ; Hypertension, unspecified type I10 and Depression, unspecified depression type F32.A [facility] [address] [place] [address] 07/30/2023 CRISTINO JOSEY Other obesity E66.8 ; Body mass index (BMI) of 40.1 to 44.9 in adult Z68.41 ; Intermittent asthma without complication, unspecified asthma severity J45.20 ; Hypertension, unspecified type I10 and Depression, unspecified depression type F32.A [facility] [address] [place] [address] 09/08/2023 CRISTINO JOSEY Other obesity E66.8 ; Body mass index (BMI) of 40.1 to 44.9 in adult Z68.41 ; Intermittent asthma without complication, unspecified asthma severity J45.20 ; Hypertension, unspecified type I10 and Depression, unspecified depression type F32.A [facility] [address] [place] [address] 10/28/2023 CRISTINO JOSEY Other obesity E66.8 ; BMI 39.0-39.9,adult Z68.39 ; Intermittent asthma without complication, unspecified asthma severity J45.20 ; Hypertension, unspecified type I10 and Depression, unspecified depression type F32.A [facility] [address] [place] [address] 12/22/2023 CRISTINO JOSEY Other obesity E66.8 ; BMI 39.0-39.9,adult Z68.39 ; Intermittent asthma without complication, unspecified asthma severity J45.20 ; Hypertension, unspecified type I10 and Depression, unspecified depression type F32.A [facility] [address] [place] [address] 02/08/2024 CRISTINO JOSEY Obesity (BMI 30-39.9 ) E66.9 ; BMI 38.0-38.9,adult Z68.38 ; Hypertension, unspecified type I10 ; Intermittent asthma without complication, unspecified asthma severity J45.20 and Depression, unspecified depression type F32.A [facility] [address] [place] [address] 12/23/2023 CRISTINO DOWLING ASSESSMENTS Encounter Date Diagnosis [...] insurance until 3 consecutive months due to [employer]. Could consider compounded semaglutide. We will discuss [...] weight loss medications although cannot submit to [employer] until at least 3 consecutive months. We [...] to the medication not being in [employer] formulary. 06/22/2023: Weight: 287.3 lbs, BMI: 42.42. [...] Dictation was accomplished with the use of [employer] voice recognition software, prone to medical misidentifications [...] insurance until 3 consecutive months due to [employer]. Could consider compounded semaglutide. We will discuss [...] weight loss medications although cannot submit to [employer] until at least 3 consecutive months. We [...] secondary to the medication not being in [employer]'s formulary. 06/22/2023: Weight: 287.3 lbs, BMI: 42.42. [...] Dictation was accomplished with the use of [employer] voice recognition software, prone to medical misidentifications [...] insurance until 3 consecutive months due to [employer]. Could consider compounded semaglutide. We will discuss [...] weight loss medications although cannot submit to [employer] until at least 3 consecutive months. We [...] to the medication not being in [employer] formulary. 06/22/2023: Weight: 287.3 lbs, BMI: 42.42. [...] Dictation was accomplished with the use of [employer] voice recognition software, prone to medical misidentifications [...] insurance until 3 consecutive [address] [facility]. Could consider compounded semaglutide. We will discuss [...] weight loss medications although cannot submit to [employer] until at least 3 consecutive months. We [...] to the medication not being in [employer] formulary. 06/22/2023: Weight: 287.3 lbs, BMI: 42.42. [...] Dictation was accomplished with the use of [employer] voice recognition software, prone to medical misidentifications [...] insurance until 3 consecutive months due to [employer]. Could consider compounded semaglutide. We will discuss [...] weight loss medications although cannot submit to [employer] until at least 3 consecutive months. We [...] secondary to the medication not being in [employer]'s formulary. 06/22/2023: Weight: 287.3 lbs, BMI: 42.42. [...] Dictation was accomplished with the use of [employer] voice recognition software, prone to medical misidentifications [...] insurance until 3 consecutive months due to [employer]. Could consider compounded semaglutide. We will discuss [...] weight loss medications although cannot submit to [employer] until at least 3 consecutive months. We [...] secondary to the medication not being in [employer]'s formulary. 06/22/2023: Weight: 287.3 lbs, BMI: 42.42. [...] Dictation was accomplished with the use of [employer] voice recognition software, prone to medical misidentifications [...] insurance until 3 consecutive months due to [employer]. Could consider compounded semaglutide. We will discuss [...] weight loss medications although cannot submit to [employer] until at least 3 consecutive months. We [...] to the medication not being in [employer] formulary. 06/22/2023: Weight: 287.3 lbs, BMI: 42.42. [...] Dictation was accomplished with the use of [employer] voice recognition software, prone to medical misidentifications [...] insurance until 3 consecutive months due to [employer]. Could consider compounded semaglutide. We will discuss [...] weight loss medications although cannot submit to [employer] until at least 3 consecutive months. We [...] to the medication not being in [employer] formulary. 06/22/2023: Weight: 287.3 lbs, BMI: 42.42. [...] Dictation was accomplished with the use of [employer] voice recognition software, prone to medical misidentifications [...] insurance until 3 consecutive months due to [employer]. Could consider compounded semaglutide. We will discuss [...] weight loss medications although cannot submit to [employer] until at least 3 consecutive months. We [...] to the medication not being in [employer] formulary. 06/22/2023: Weight: 287.3 lbs, BMI: 42.42. [...] Dictation was accomplished with the use of [employer] voice recognition software, prone to medical misidentifications [...] insurance until 3 consecutive months [address] to [facility]. Could consider compounded semaglutide. We will discuss [...] loss medications although cannot submit to [employer] until at least 3 consecutive months. We [...] to the medication not being in [employer] formulary. 06/22/2023: Weight: 287.3 lbs, BMI: 42.42. [...] Dictation was accomplished with the use of [employer] voice recognition software, prone to medical misidentifications [...] insurance until 3 consecutive months due to [employer]. Could consider compounded semaglutide. We will discuss [...] weight loss medications although cannot submit to [employer] until at least 3 consecutive months. We [...] secondary to the medication not being in [employer]'s formulary. 06/22/2023: Weight: 287.3 lbs, BMI: 42.42. [...] Dictation was accomplished with the use of [employer] voice recognition software, prone to medical misidentifications [...] insurance until 3 consecutive months due to [employer]. Could consider compounded semaglutide. We will discuss [...] weight loss medications although cannot submit to [employer] until at least 3 consecutive months. We [...] secondary to the medication not being in [employer]'s formulary. 06/22/2023: Weight: 287.3 lbs, BMI: 42.42. [...] Dictation was accomplished with the use of [employer] voice recognition software, prone to medical misidentifications [...] insurance until 3 consecutive months due to [employer]. Could consider compounded semaglutide. We will discuss [...] weight loss medications although cannot submit to [employer] until at least 3 consecutive months. We [...] to the medication not being in [employer] formulary. 06/22/2023: Weight: 287.3 lbs, BMI: 42.42. [...] Dictation was accomplished with the use of [employer] voice recognition software, prone to medical misidentifications [...] insurance until 3 consecutive months due to [employer]. Could consider compounded semaglutide. We will discuss [...] weight loss medications although cannot submit to [employer] until at least 3 consecutive months. We [...] to the medication not being in [employer] formulary. 06/22/2023: Weight: 287.3 lbs, BMI: 42.42. [...] Dictation was accomplished with the use of [employer] voice recognition software, prone to medical misidentifications [...] insurance until 3 consecutive months due to [employer]. Could consider compounded semaglutide. We will discuss [...] weight loss medications although cannot submit to [employer] until at least 3 consecutive months. We [...] to the medication not being in [employer] formulary. 06/22/2023: Weight: 287.3 lbs, BMI: 42.42. [...] Dictation was accomplished with the use of [employer] voice recognition software, prone to medical misidentifications [...] insurance until 3 consecutive months due to [employer]. Could consider compounded semaglutide. We will discuss [...] weight loss medications although cannot submit to [employer] until at least 3 consecutive months. We [...] secondary to the medication not being in [employer]'s formulary. 06/22/2023: Weight: 287.3 lbs, BMI: 42.42. [...] Dictation was accomplished with the use of [employer] voice recognition software, prone to medical misidentifications [...] insurance until 3 consecutive months due to [employer]. Could consider compounded semaglutide. We will discuss [...] weight loss medications although cannot submit to [facility] until at least 3 consecutive months. We [...] to the medication not being in [employer] formulary. 06/22/2023: Weight: 287.3 lbs, BMI: 42.42. [...] Dictation was accomplished with the use of [employer] voice recognition software, prone to medical misidentifications [...] insurance until 3 consecutive months due to [employer]. Could consider compounded semaglutide. We will discuss [...] weight loss medications although cannot submit to [employer] until at least 3 consecutive months. We [...] secondary to the medication not being in [employer]'s formulary. 06/22/2023: Weight: 287.3 lbs, BMI: 42.42. [...] Dictation was accomplished with the use of [employer] voice recognition software, prone to medical misidentifications [...] insurance until 3 consecutive months due to [employer]. Could consider compounded semaglutide. We will discuss [...] weight loss medications although cannot submit to [employer] until at least 3 consecutive months. We [...] secondary to the medication not being in [employer] formulary. 06/22/2023: Weight: 287.3 lbs, BMI: 42.42. [...] Dictation was accomplished with the use of [employer] voice recognition software, prone to medical misidentifications [...] insurance until 3 consecutive months due to [employer]. Could consider compounded semaglutide. We will discuss [...] weight loss medications although cannot submit to [employer] until at least 3 consecutive months. We [...] secondary to the medication not being in [employer]'s formulary. 06/22/2023: Weight: 287.3 lbs, BMI: 42.42. [...] Dictation was accomplished with the use of [employer] voice recognition software, prone to medical misidentifications [...] insurance until 3 consecutive months due to [employer]. Could consider compounded semaglutide. We will discuss [...] weight loss medications although cannot submit to [employer] until at least 3 consecutive months. We [...] secondary to the medication not being in [employer]'s formulary. 06/22/2023: Weight: 287.3 lbs, BMI: 42.42. [...] Dictation was accomplished with the use of [employer] voice recognition software, prone to medical misidentifications [...] insurance until 3 consecutive months due to [employer]. Could consider compounded semaglutide. We will discuss [...] weight loss medications although cannot submit to [employer] until at least 3 consecutive months. We [...] to the medication not being in [employer]'s formulary. 06/22/2023: Weight: 287.3 lbs, BMI: 42.42. [...] Dictation was accomplished with the use of [employer] voice recognition software, prone to medical misidentifications [...] insurance until 3 consecutive months due to [employer]. Could consider compounded semaglutide. We will discuss [...] weight loss medications although cannot submit to [employer] until at least 3 consecutive months. We [...] secondary to the medication not being in [employer]'s formulary. 06/22/2023: Weight: 287.3 lbs, BMI: 42.42. [...] Dictation was accomplished with the use of [employer] voice recognition software, prone to medical misidentifications [...] insurance until 3 consecutive months due to [employer]. Could consider compounded semaglutide. We will discuss [...] weight loss medications although cannot submit to [employer] until at least 3 consecutive months. We [...] secondary to the medication not being in [employer]'s formulary. 06/22/2023: Weight: 287.3 lbs, BMI: 42.42. [...] Dictation was accomplished with the use of [employer] voice recognition software, prone to medical misidentifications [...] insurance until 3 consecutive months due to [employer]. Could consider compounded semaglutide. We will discuss [...] weight loss medications although cannot submit to [employer] until at least 3 consecutive months. We [...] secondary to the medication not being in [employer]'s formulary. 06/22/2023: Weight: 287.3 lbs, BMI: 42.42. [...] Dictation was accomplished with the use of [employer] voice recognition software, prone to medical misidentifications [...] insurance until 3 consecutive months due to [employer]. Could consider compounded semaglutide. We will discuss [...] weight loss medications although cannot submit to [employer] until at least 3 consecutive months. We [...] secondary to the medication not being in [employer]'s formulary. 06/22/2023: Weight: 287.3 lbs, BMI: 42.42. [...] Dictation was accomplished with the use of [employer] voice recognition software, prone to medical misidentifications [...] insurance until 3 consecutive months due to [employer]. Could consider compounded semaglutide. We will discuss [...] weight loss medications although cannot submit to [employer] until at least 3 consecutive months. We [...] secondary to the medication not being in [employer]'s formulary. 06/22/2023: Weight: 287.3 lbs, BMI: 42.42. [...] Dictation was accomplished with the use of [employer] voice recognition software, prone to medical misidentifications [...] insurance until 3 consecutive months due to [employer]. Could consider compounded semaglutide. We will discuss [...] weight loss medications although cannot submit to [employer] until at least 3 consecutive months. We [...] secondary to the medication not being in [employer]'s formulary. 06/22/2023: Weight: 287.3 lbs, BMI: 42.42. [...] Dictation was accomplished with the use of [employer] voice recognition software, prone to medical misidentifications [...] insurance until 3 consecutive months due to [employer]. Could consider compounded semaglutide. We will discuss [...] weight loss medications although cannot submit to [employer] until at least 3 consecutive months. We [...] secondary to the medication not being in [employer]'s formulary. 06/22/2023: Weight: 287.3 lbs, BMI: 42.42. [...] Dictation was accomplished with the use of [employer] voice recognition software, prone to medical misidentifications [...] insurance until 3 consecutive months due to [employer]. Could consider compounded semaglutide. We will discuss [...] weight loss medications although cannot submit to [employer] until at least 3 consecutive months. We [...] secondary to the medication not being in [employer]'s formulary. 06/22/2023: Weight: 287.3 lbs, BMI: 42.42. [...] Dictation was accomplished with the use of [employer] voice recognition software, prone to medical misidentifications [...] Insured Coverage Start Date Coverage End Date [facility] [address] [facility] [place] [id number] Bill Ham Self - patient is the insured MEDICATIONS ADMINISTERED Medication Instructions Date of Administration Dosage Notes Semaglutide 11/17/2022 sema 0.25mg Semaglutide 11/24/2022 lot# [id number] 0.25mg Semaglutide 12/01/2022 sema 0.25mg Semaglutide 12/08/2022 lot# [id number] 0.25mg Semaglutide 12/18/2022 0.5 mg sema .5mg MEDICAL (GENERAL) HISTORY Medical History History ICD Code depression hypertension asthma sleep apnea on CPAP obesity
--- OUTSIDE RECORDS SUMMARY | 2024-06-16 19:55 | XMS_ITS ---
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 Could consider compounded semaglutide. We will discuss [...] weight loss medications although cannot submit to [employer] until at least 3 consecutive months. We [...] secondary to the medication not being in [employer]'s formulary. 06/22/2023: Weight: 287.3 lbs, BMI: 42.42. [...] Dictation was accomplished with the use of [employer] voice recognition software, prone to medical misidentifications [...] insurance until 3 consecutive months due to [employer]. Could consider compounded semaglutide. We will discuss [...] weight loss medications although cannot submit to [employer] until at least 3 consecutive months. We [...] secondary to the medication not being in [employer]'s formulary. 06/22/2023: Weight: 287.3 lbs, BMI: 42.42. [...] Dictation was accomplished with the use of [employer] voice recognition software, prone to medical misidentifications [...] insurance until 3 consecutive months due to [employer]. Could consider compounded semaglutide. We will discuss [...] weight loss medications although cannot submit to [employer] until at least 3 consecutive months. We [...] to the medication not being in [employer] [place]'s formulary. 06/22/2023: Weight: 287.3 lbs, BMI: 42.42. [...] Dictation was accomplished with the use of [employer] voice recognition software, prone to medical misidentifications [...] insurance until 3 consecutive months due to [employer]. Could consider compounded semaglutide. We will discuss [...] weight loss medications although cannot submit to [employer] until at least 3 consecutive months. We [...] to the medication not being in [employer]'s formulary. 06/22/2023: Weight: 287.3 lbs, BMI: 42.42. [...] Dictation was accomplished with the use of [employer] voice recognition software, prone to medical misidentifications [...] insurance until 3 consecutive months due to [employer]. Could consider compounded semaglutide. We will discuss [...] weight loss medications although cannot submit to [employer] until at least 3 consecutive months. We [...] to the medication not being in [employer] [place] formulary. 06/22/2023: Weight: 287.3 lbs, BMI: 42.42. [...] Dictation was accomplished with the use of [employer] voice recognition software, prone to medical misidentifications [...] * Josefina HAMOB:1980 ( 43 yo M)Acc No.[id number]:02/08/2024 Patient:??Bill HAM Provider:??CRISTINO DOWLING PA-C :1980?Age:43 Y?Sex:Luis le Date:02/08/2024 Address: [facility] Subjective: * Chief Complaints: * ?1. Pt [...] dm. 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 * [...] insurance until 3 consecutive months due to [employer]. Could consider compounded semaglutide. We will discuss [...] weight loss medications although cannot submit to [employer] until at least 3 consecutive months. We [...] secondary to the medication not being in [employer]'s formulary. 06/22/2023: Weight: 287.3 lbs, BMI: 42.42. [...] Dictation was accomplished with the use of [employer] voice recognition software, prone to medical misidentifications and grammatical errors. This is unintentional and the practitioner does try to identify and correct these, but some could still be present. Please do not hesitate to contact practitioner for clarification. Plan: * Treatment: * Procedure Codes:??80700 P/M FOOD CRITIC, INDIV 15 MIN * Images: Billing Information: * Visit Code:?? 57288 Office Visit, Est Pt., Level 3. * Procedure Codes:?? 17988 P/M FOOD CRITIC, INDIV 15 MIN. * Sign off status: [...]
== END 2024-06-16 19:51 | disposition home or self-care (01) ==
LOC: HO.MRI 19:50
PROVIDERS: PCP Physician Assistant; Visit Provider Physician Assistant
DX: R41.3 Other amnesia (principal)
CPT/HCPCS: 70551

== ENCOUNTER → 2024-06-16 20:00 | Outpatient (BNV) | payer OTHER, SELFPAY | PROVIDERS: PCP Physician Assistant; Visit Provider Radiology Diagnostic Radiology | DX: R41.3 Other amnesia (principal) | CPT/HCPCS: 70551 ==

== ENCOUNTER 2024-07-06 08:26 | Outpatient (REF) | payer OTHER, SELFPAY ==
--- NOTE | ~2024-07-06 | US_ITS ---
CLINICAL HISTORY: I10 - Essential (primary) hypertension US Renal with Doppler Comparison: US - ABDOMEN ULTRASOUND [id number] - 11/10/16 13:53 EDT Findings: Right kidney normal size and echotexture, 12.7 cm length. No hydronephrosis. Normal color Doppler. Resistive index 0.65-0.67. Left kidney normal size and echotexture, 11.9 cm length. No hydronephrosis. Normal color Doppler. Resistive index 0.60-0.71. Peak systolic velocities within the right renal artery measure 156, 126 and 103 centimeters/second within its proximal, mid and distal aspect respectively. Peak systolic velocities within the left renal artery measure 99, 95 and 66 centimeters/second within its proximal, mid and distal aspects respectively. The peak systolic velocity within the mid abdominal aorta is estimated at 120 centimeters/second. IMPRESSION: 1. No acute abnormality of the kidneys. 2. No evidence of renal artery stenosis. This document has been electronically signed by: Latisha Bermeo MD on 07/07/2024 15:33:24
--- NOTE | ~2024-07-06 | US_ITS ---
CLINICAL HISTORY: I10 - Essential (primary) hypertension US Renal with Doppler Comparison: US - ABDOMEN ULTRASOUND [id number] - 11/10/16 13:53 EDT Findings: Right kidney normal size and echotexture, 12.7 cm length. No hydronephrosis. Normal color Doppler. Resistive index 0.65-0.67. Left kidney normal size and echotexture, 11.9 cm length. No hydronephrosis. Normal color Doppler. Resistive index 0.60-0.71. Peak systolic velocities within the right renal artery measure 156, 126 and 103 centimeters/second within its proximal, mid and distal aspect respectively. Peak systolic velocities within the left renal artery measure 99, 95 and 66 centimeters/second within its proximal, mid and distal aspects respectively. The peak systolic velocity within the mid abdominal aorta is estimated at 120 centimeters/second. IMPRESSION: 1. No acute abnormality of the kidneys. 2. No evidence of renal artery stenosis. This document has been electronically signed by: Latisha Bermeo MD on 07/07/2024 15:33:24
--- OUTSIDE RECORDS SUMMARY | 2024-07-06 09:10 | XMS_ITS ---
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
--- OUTSIDE RECORDS SUMMARY | 2024-07-06 09:11 | XMS_ITS | Patient Health Record ---
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 tob: denies drug: denies commodity manager alcohol: denies tob: denies drug: denies commodity manager alcohol: denies tob: denies drug: denies commodity manager alcohol: denies tob: denies drug: denies commodity manager alcohol: denies tob: denies drug: denies commodity manager alcohol: denies tob: denies drug: denies commodity manager alcohol: denies tob: denies drug: denies commodity manager alcohol: denies tob: denies drug: denies commodity manager alcohol: denies tob: denies drug: denies commodity manager alcohol: denies tob: denies drug: denies commodity manager alcohol: denies tob: denies drug: denies commodity manager alcohol: denies tob: denies drug: denies commodity manager alcohol: denies tob: denies drug: denies PROBLEMS Problem Type ICD Code Onset Dates Problem Status W/U Status Risk SNOMED Code Notes Problem Hypertension, unspecified type (I10) Active confirmed 45148387 Problem Intermittent asthma without complication, unspecified asthma severity (J45.20) Active confirmed 914574731 VITAL SIGNS Heart Rate 76 /min 02/08/2024 Oximetry 99 % 02/08/2024 Blood pressure diastolic 88 mm Hg 02/08/2024 Height 69 in 02/08/2024 Blood pressure systolic 142 mm Hg 02/08/2024 Weight 262.6 lbs 02/08/2024 BMI 38.78 kg/m2 02/08/2024 Encounters Encounter Location Date Provider Diagnosis [facility] [address] [place] [address] 03/23/2024 CRISTINO JOSEY [facility] [address] [place] [address] 07/30/2023 CRISTINO JOSEY Other obesity E66.8 ; Body mass index (BMI) of 40.1 to 44.9 in adult Z68.41 ; Intermittent asthma without complication, unspecified asthma severity J45.20 ; Hypertension, unspecified type I10 and Depression, unspecified depression type F32.A [facility] [address] [place] [address] 09/08/2023 CRISTINO JOSEY Other obesity E66.8 ; Body mass index (BMI) of 40.1 to 44.9 in adult Z68.41 ; Intermittent asthma without complication, unspecified asthma severity J45.20 ; Hypertension, unspecified type I10 and Depression, unspecified depression type F32.A [facility] [address] [place] [address] 10/28/2023 CRISTINO JOSEY Other obesity E66.8 ; BMI 39.0-39.9,adult Z68.39 ; Intermittent asthma without complication, unspecified asthma severity J45.20 ; Hypertension, unspecified type I10 and Depression, unspecified depression type F32.A [facility] [address] [place] [address] 12/22/2023 CRISTINO JOSEY Other obesity E66.8 ; BMI 39.0-39.9,adult Z68.39 ; Intermittent asthma without complication, unspecified asthma severity J45.20 ; Hypertension, unspecified type I10 and Depression, unspecified depression type F32.A [facility] [address] [place] [address] 02/08/2024 CRISTINO DOWLING Obesity (BMI 30-39.9 ) E66.9 ; BMI 38.0-38.9,adult Z68.38 ; Hypertension, unspecified type I10 ; Intermittent asthma without complication, unspecified asthma severity J45.20 and Depression, unspecified depression type F32.A [facility] [address] [facility] [place] [address] 12/23/2023 CRISTINO DOWLING ASSESSMENTS Encounter Date Diagnosis Assessment Notes Treatment Notes Treatment Clinical Notes Section Notes 07/30/2023 Other obesity (ICD-10 - E66.8) Bill [...] insurance until 3 consecutive months due to [employer]. Could consider compounded semaglutide. We will discuss [...] weight loss medications although cannot submit to [employer] until at least 3 consecutive months. We [...] secondary to the medication not being in [employer]'s formulary. 06/22/2023: Weight: 287.3 lbs, BMI: 42.42. [...] Dictation was accomplished with the use of [employer] voice recognition software, prone to medical misidentifications [...] insurance until 3 consecutive months due to [facility]. Could consider compounded semaglutide. We will discuss [...] weight loss medications although cannot submit to [employer] until at least 3 consecutive months. We [...] to the medication not being in [employer]'s formulary. 06/22/2023: Weight: 287.3 lbs, BMI: 42.42. [...] Dictation was accomplished with the use of [employer] voice recognition software, prone to medical misidentifications [...] insurance until 3 consecutive months due to [employer]. Could consider compounded semaglutide. We will discuss [...] weight loss medications although cannot submit to [employer] until at least 3 consecutive months. We [...] to the medication not being in [employer] formulary. 06/22/2023: Weight: 287.3 lbs, BMI: 42.42. [...] Dictation was accomplished with the use of [employer] voice recognition software, prone to medical misidentifications [...] insurance until 3 consecutive months due to [employer]. Could consider compounded semaglutide. We will discuss [...] weight loss medications although cannot submit to [employer] until at least 3 consecutive months. We [...] secondary to the medication not being in [employer]'s formulary. 06/22/2023: Weight: 287.3 lbs, BMI: 42.42. [...] Dictation was accomplished with the use of [employer] voice recognition software, prone to medical misidentifications [...] insurance until 3 consecutive months due to [employer]. Could consider compounded semaglutide. We will discuss [...] weight loss medications although cannot submit to [employer] until at least 3 consecutive months. We [...] secondary to the medication not being in [employer]'s formulary. 06/22/2023: Weight: 287.3 lbs, BMI: 42.42. [...] Dictation was accomplished with the use of [employer] voice recognition software, prone to medical misidentifications and grammatical errors. This is unintentional and the practitioner does try to identify and correct these, but some could still be present. Please do not hesitate to contact practitioner for clarification. 02/08/2024 Obesity (BMI 30-39.9) (ICD-10 - E66.9) iBll is a 42 year old male patient [...] insurance until 3 consecutive months due to [employer]. Could consider compounded semaglutide. We will discuss [...] weight loss medications although cannot submit to [employer] until at least 3 consecutive months. We [...] to the medication not being in [employer]'s formulary. 06/22/2023: Weight: 287.3 lbs, BMI: 42.42. [...] Dictation was accomplished with the use of [employer] voice recognition software, prone to medical misidentifications [...] insurance until 3 consecutive months due to [employer]. Could consider compounded semaglutide. We will discuss [...] weight loss medications although cannot submit to [employer] until at least 3 consecutive months. We [...] to the medication not being in [employer]'s formulary. 06/22/2023: Weight: 287.3 lbs, BMI: 42.42. [...] Dictation was accomplished with the use of [employer] voice recognition software, prone to medical misidentifications [...] insurance until 3 consecutive months due to [employer]. Could consider compounded semaglutide. We will discuss [...] weight loss medications although cannot submit to [employer] until at least 3 consecutive months. We [...] to the medication not being in [employer]'s formulary. 06/22/2023: Weight: 287.3 lbs, BMI: 42.42. [...] Dictation was accomplished with the use of [employer] voice recognition software, prone to medical misidentifications [...] insurance until 3 consecutive months due to [facility]. Could consider compounded semaglutide. We will discuss [...] weight loss medications although cannot submit to [employer] until at least 3 consecutive months. We [...] to the medication not being in [employer] formulary. 06/22/2023: Weight: 287.3 lbs, BMI: 42.42. [...] Dictation was accomplished with the use of [employer] voice recognition software, prone to medical misidentifications [...] insurance until 3 consecutive months due to [employer]. Could consider compounded semaglutide. We will discuss [...] weight loss medications although cannot submit to [employer] until at least 3 consecutive months. We [...] secondary to the medication not being in [employer] formulary. 06/22/2023: Weight: 287.3 lbs, BMI: 42.42. [...] Dictation was accomplished with the use of [employer] voice recognition software, prone to medical misidentifications [...] insurance until 3 consecutive months due to [employer]. Could consider compounded semaglutide. We will discuss [...] weight loss medications although cannot submit to [employer] until at least 3 consecutive months. We [...] secondary to the medication not being in [employer] formulary. 06/22/2023: Weight: 287.3 lbs, BMI: 42.42. [...] Dictation was accomplished with the use of [employer] voice recognition software, prone to medical misidentifications [...] insurance until 3 consecutive months due to [employer]. Could consider compounded semaglutide. We will discuss [...] weight loss medications although cannot submit to [employer] until at least 3 consecutive months. We [...] to the medication not being in [employer] formulary. 06/22/2023: Weight: 287.3 lbs, BMI: 42.42. [...] Dictation was accomplished with the use of [employer] voice recognition software, prone to medical misidentifications [...] insurance until 3 consecutive months due to [facility]. Could consider compounded semaglutide. We will discuss [...] weight loss medications although cannot submit to [employer] until at least 3 consecutive months. We [...] to the medication not being in [employer] formulary. 06/22/2023: Weight: 287.3 lbs, BMI: 42.42. [...] Dictation was accomplished with the use of [employer] voice recognition software, prone to medical misidentifications [...] insurance until 3 consecutive months due to [employer]. Could consider compounded semaglutide. We will discuss [...] weight loss medications although cannot submit to [employer] until at least 3 consecutive months. We [...] secondary to the medication not being in [employer]'s formulary. 06/22/2023: Weight: 287.3 lbs, BMI: 42.42. [...] Dictation was accomplished with the use of [employer] voice recognition software, prone to medical misidentifications [...] insurance until 3 consecutive months due to [employer]. Could consider compounded semaglutide. We will discuss [...] weight loss medications although cannot submit to [employer] until at least 3 consecutive months. We [...] secondary to the medication not being in [employer]'s formulary. 06/22/2023: Weight: 287.3 lbs, BMI: 42.42. [...] Dictation was accomplished with the use of [employer] voice recognition software, prone to medical misidentifications [...] insurance until 3 consecutive months due to [employer]. Could consider compounded semaglutide. We will discuss [...] weight loss medications although cannot submit to [employer] until at least 3 consecutive months. We [...] secondary to the medication not being in [employer]'s formulary. 06/22/2023: Weight: 287.3 lbs, BMI: 42.42. [...] Dictation was accomplished with the use of [employer] voice recognition software, prone to medical misidentifications [...] insurance until 3 consecutive months due to [employer]. Could consider compounded semaglutide. We will discuss [...] weight loss medications although cannot submit to [employer] until at least 3 consecutive months. We [...] to the medication not being in [employer]'s formulary. 06/22/2023: Weight: 287.3 lbs, BMI: 42.42. [...] Dictation was accomplished with the use of [employer] voice recognition software, prone to medical misidentifications [...] insurance until 3 consecutive months due to [employer]. Could consider compounded semaglutide. We will discuss [...] weight loss medications although cannot submit to [employer] until at least 3 consecutive months. We [...] to the medication not being in [employer] formulary. 06/22/2023: Weight: 287.3 lbs, BMI: 42.42. [...] Dictation was accomplished with the use of [employer] voice recognition software, prone to medical misidentifications [...] insurance until 3 consecutive months due to [employer]. Could consider compounded semaglutide. We will discuss [...] weight loss medications although cannot submit to [employer] until at least 3 consecutive months. We [...] secondary to the medication not being in [employer] formulary. 06/22/2023: Weight: 287.3 lbs, BMI: 42.42. [...] Dictation was accomplished with the use of [employer] voice recognition software, prone to medical misidentifications [...] insurance until 3 consecutive months due to [employer]. Could consider compounded semaglutide. We will discuss [...] weight loss medications although cannot submit to [employer] until at least 3 consecutive months. We [...] to the medication not being in [employer] formulary. 06/22/2023: Weight: 287.3 lbs, BMI: 42.42. [...] Dictation was accomplished with the use of [employer] voice recognition software, prone to medical misidentifications [...] insurance until 3 consecutive months due to [facility]. Could consider compounded semaglutide. We will discuss [...] weight loss medications although cannot submit to [employer] until at least 3 consecutive months. We [...] to the medication not being in [employer] formulary. 06/22/2023: Weight: 287.3 lbs, BMI: 42.42. [...] Dictation was accomplished with the use of [employer] voice recognition software, prone to medical misidentifications [...] insurance until 3 consecutive months due to [employer]. Could consider compounded semaglutide. We will discuss [...] weight loss medications although cannot submit to [employer] until at least 3 consecutive months. We [...] to the medication not being in [employer]'s formulary. 06/22/2023: Weight: 287.3 lbs, BMI: 42.42. [...] Dictation was accomplished with the use of [employer] voice recognition software, prone to medical misidentifications [...] insurance until 3 consecutive months due to [employer]. Could consider compounded semaglutide. We will discuss [...] weight loss medications although cannot submit to [employer] until at least 3 consecutive months. We [...] to the medication not being in [employer] formulary. 06/22/2023: Weight: 287.3 lbs, BMI: 42.42. [...] Dictation was accomplished with the use of [employer] voice recognition software, prone to medical misidentifications [...] insurance until 3 consecutive months due to [employer]. Could consider compounded semaglutide. We will discuss [...] weight loss medications although cannot submit to [employer] until at least 3 consecutive months. We [...] secondary to the medication not being in [employer]'s formulary. 06/22/2023: Weight: 287.3 lbs, BMI: 42.42. [...] Dictation was accomplished with the use of [employer] voice recognition software, prone to medical misidentifications [...] insurance until 3 consecutive months due to [employer]. Could consider compounded semaglutide. We will discuss [...] weight loss medications although cannot submit to [employer] until at least 3 consecutive months. We [...] secondary to the medication not being in [employer]'s formulary. 06/22/2023: Weight: 287.3 lbs, BMI: 42.42. [...] Dictation was accomplished with the use of [employer] voice recognition software, prone to medical misidentifications [...] Insured Coverage Start Date Coverage End Date [facility] [address] [place] [address] [id number] Bill Ham Self - patient is the insured MEDICATIONS ADMINISTERED Medication Instructions Date of Administration Dosage Notes Semaglutide 11/17/2022 sema 0.25mg Semaglutide 11/24/2022 lot# [id number] 0.25mg Semaglutide 12/01/2022 sema 0.25mg Semaglutide 12/08/2022 lot# [id number] 0.25mg Semaglutide 12/18/2022 0.5 mg sema .5mg MEDICAL (GENERAL) HISTORY Medical History History ICD Code depression hypertension asthma sleep apnea on CPAP obesity
--- OUTSIDE RECORDS SUMMARY | 2024-07-06 09:11 | XMS_ITS ---
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 Could consider compounded semaglutide. We will discuss [...] weight loss medications although cannot submit to [employer] until at least 3 consecutive months. We [...] secondary to the medication not being in [email or web address]'s formulary. 06/22/2023: Weight: 287.3 lbs, BMI: 42.42. [...] Dictation was accomplished with the use of [employer] voice recognition software, prone to medical misidentifications [...] insurance until 3 consecutive months due to [email or web address]. Could consider compounded semaglutide. We will discuss [...] weight loss medications although cannot submit to [email or web address] until at least 3 consecutive months. We [...] secondary to the medication not being in [email or web address]'s formulary. 06/22/2023: Weight: 287.3 lbs, BMI: 42.42. [...] Dictation was accomplished with the use of [employer] voice recognition software, prone to medical misidentifications [...] insurance until 3 consecutive months due to [email or web address]. Could consider compounded semaglutide. We will discuss [...] weight loss medications although cannot submit to [employer] until at least 3 consecutive months. We [...] to the medication not being in [employer]'s formulary. 06/22/2023: Weight: 287.3 lbs, BMI: 42.42. [...] arise. Case discussed with collaborating physician Eric Meo who reviewed the assessment and plan. Chart, medications, labs, vital signs reviewed. Dictation was accomplished with the use of [employer] voice recognition software, prone to medical misidentifications [...] insurance until 3 consecutive months due to [employer]. Could consider compounded semaglutide. We will discuss [...] weight loss medications although cannot submit to [employer] until at least 3 consecutive months. We [...] to the medication not being in [employer]'s formulary. 06/22/2023: Weight: 287.3 lbs, BMI: 42.42. [...] Dictation was accomplished with the use of [employer] voice recognition software, prone to medical misidentifications [...] insurance until 3 consecutive months due to [employer]. Could consider compounded semaglutide. We will discuss [...] weight loss medications although cannot submit to [employer] until at least 3 consecutive months. We [...] to the medication not being in [employer]'s formulary. 06/22/2023: Weight: 287.3 lbs, BMI: 42.42. [...] Dictation was accomplished with the use of [employer] voice recognition software, prone to medical misidentifications [...] * Josefina HAMOB:1980 ( 43 yo M)Acc No.[id number]:02/08/2024 Patient:??Bill HAM Provider:??CRISTINO DOWLING PA-C :1980?Age:43 Y?Sex:Luis le Date:02/08/2024 Address: [facility] Subjective: * Chief Complaints: * ?1. Pt [...] dm. 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 * [...] insurance until 3 consecutive months due to [employer]. Could consider compounded semaglutide. We will discuss [...] weight loss medications although cannot submit to [employer] until at least 3 consecutive months. We [...] secondary to the medication not being in [employer]'s formulary. 06/22/2023: Weight: 287.3 lbs, BMI: 42.42. [...] Dictation was accomplished with the use of [employer] voice recognition software, prone to medical misidentifications and grammatical errors. This is unintentional and the practitioner does try to identify and correct these, but some could still be present. Please do not hesitate to contact practitioner for clarification. Plan: * Treatment: * Procedure Codes:??59692 P/M GUM MIXER, INDIV 15 MIN * Images: Billing Information: * Visit Code:?? 68317 Office Visit, Est Pt., Level 3. * Procedure Codes:?? 44725 P/M GUM MIXER, INDIV 15 MIN. * Sign off status: [...]
--- OUTSIDE RECORDS SUMMARY | 2024-07-06 09:11 | XMS_ITS ---
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 6 week f/u. * Medical History:?? Objective: Assessment: Plan: * Treatment: * Images: Billing Information: * Visit Code:?? * Procedure Codes:?? * Sign off status: Pending * Provider:??CRISTINO DOWLING PA-C Date:??07/2023
== END 2024-07-06 08:27 | disposition home or self-care (01) ==
LOC: HO.HMGCX 08:26
PROVIDERS: PCP Physician Assistant; Visit Provider Physician Assistant
DX: I10 Essential (primary) hypertension (principal)
CPT/HCPCS: 76775; 93975

== ENCOUNTER → 2024-07-06 08:30 | Outpatient (BNV) | payer OTHER, SELFPAY | PROVIDERS: PCP Physician Assistant; Visit Provider Radiology Diagnostic Radiology | DX: I10 Essential (primary) hypertension (principal) | CPT/HCPCS: 76775 ==

== ENCOUNTER 2024-07-12 14:10 | Outpatient (AMB) | payer OTHER, SELFPAY ==
[2024-07-12 14:12] VITALS: BP 150/102; PULSE 72; TEMP 36.2; O2SAT 98; BMI 40.2
--- NOTE | 2024-07-12 14:12 | MHC.PC.OV ---
Vital Signs 07/12/24 14:12 Height 5 ft 9 in Weight 272 lb 2 oz BMI 40.2 BP 150/102 H Blood Pressure Location Lt brachial Position Sitting Pulse 72 Pulse Source Pulse Oximeter Temp 97.1 F Temp Source Temporal Artery Scan Pulse Oximetry (%) 98 Oxygen Delivery Method Room Air Intake Visit Reasons: 4 week follow up Bone Glue Maker Required: No Accompanied by: Self / Same As Patient Allergies levofloxacin [From LEVAQUIN] Allergy (Mild, Verified 07/12/24 14:52) HIVES egg Allergy (Unknown, Verified 07/12/24 14:52) Unknown seafood Allergy (Unknown, Verified 07/12/24 14:52) Unknown amlodipine Adverse Reaction (Intermediate, Verified 07/12/24 14:52) ineffective hydrochlorothiazide Adverse Reaction (Intermediate, Verified 07/12/24 14:52) orthostatic hypotension Medication List - Last Reconciled 07/12/24 by Joe Mendieta PA-C albuterol sulfate 90 mcg/actuation (Ventolin HFA) 2 puffs inhalation Q4-6H PRN 30 days albuterol sulfate 2.5 mg (3 mL) continuous nebulization Q4-6H PRN atomoxetine (Strattera) 40 mg PO DAILY 30 days fluticasone propion-salmeterol 250-50 mcg/dose (Advair Diskus) 1 inh inhalation BID 90 days fluticasone propionate 50 mcg/actuation 2 sprays intranasal DAILY PRN losartan 100 mg PO DAILY montelukast 10 mg PO DAILY Tobacco use date assessed: 06/13/24 Dental Screening Dental Screen Date: 06/13/24 HPI 4 week follow up HPI Details Patient is a 43-year-old male here today for a follow-up visit. Patient has a past medical history is hypertension, asthma, obesity, hypogonadism been impaired glucose metabolism. Has a underwent brain MRI does not show any acute abnormality though did show a Focal restricted diffusion signal abnormality, diploe Left frontal bone. We are considering MRI with contrast .. ADD: Of note does have history of ADD and was on stimulant medication for ADD disorder though stopped taking this medication as he felt it became ineffective. Not followed by a psychiatrist anymore. He is now on Strattera does not feel much effect at this time. PLAN: Will increase Strattera to 80 mg effective dose .. Hypertension: Blood pressure elevated today in office. He has been monitoring his blood pressure at home and does report 130 systolic more regularly. He has reduced his caffeine intake. He also does report having some issues with his concentration, memory and focus though is unclear if this is due to his uncontrolled ADD disorder. Of note has been sensitive to diureticsand amlodipine has been ineffective. He has underwent renal ultrasounds did not show any renal artery stenosis PLAN: Will continue losartan 100 mg and add on doxazosin 1 mg for better blood pressure control. .. Asthma: Has been well controlled with daily use of his maintenance inhaler(Wixela) and daily use of montelukast. -> Unclear if the active ingredients in Wixela could be causing his hypertension .. Obesity: He does understand his BMI is over 40 and will continue working on being more physically active and adapting to better eating habits to reduce his weight. [facility] Medical History Allergic rhinitis Morbid obesity Desensitization to allergy shot Fatty liver Anemia Anxiety Obstructive sleep apnea Asthma Surgical History History of vasectomy Family History Father Hypertension Hyperlipidemia Mother No problems noted. Maternal Grandmother Myocardial infarction Maternal Grandfather Testicular cancer Paternal Grandmother Pancreatic cancer Paternal Grandfather Colon cancer Paternal Aunt Colon cancer Brother Bipolar disorder Other Mental health disorder Social History Housing: House Alcohol intake: former Year quit: 2021 Patient Tobacco Use Status: Never used Tobacco Years Smoked: teenage stopped e-Cigarette/Vaping Use: Never Used Second Hand Smoke Exposure: No service: No Current occupational status: employed Current occupation: [employer] Cognitive needs: No Hearing needs: No Vision needs: No Questionnaire Thrive Questionnaire Date Thrive assessed: 06/13/24 MO-7 AMB Questionnaire MO-7 Date MO - 7 assessed: 06/13/24 Source: Developed by Drs. Miquel Regan, Gloria Castle, Lex Coello and colleagues, with an educational cheo from [employer]. Review of Systems Const Denies headache(s) Eyes Denies loss of vision ENT Denies vertigo, Denies dizziness, Denies headache(s) and Denies sore throat Card Denies chest pain, Denies leg edema and Denies lightheadedness Resp Denies cough, Denies hemoptysis and Denies wheezing GI Denies abdominal pain, Denies melena, Denies constipation, Denies diarrhea and Denies vomiting Denies dysuria, Denies urinary frequency and Denies urinary urgency Musc Denies arthralgias, Denies joint swelling, Denies numbness and Denies tingling Neuro Denies Abnormal speech present, Denies behavioral changes, Denies vertigo, Denies dizziness, Denies headache(s), Denies loss of vision, Denies memory loss, Denies numbness and Denies tingling Psych Denies anxiety, Denies behavioral changes, Denies depression, Denies memory loss and Denies panic attacks Christian/Lymph Denies easy bleeding and Denies easy bruising Aller/Immun Denies wheezing Physical exam (Primary Care) Vital Signs: Last Vital Signs Temp 97.1 F 07/12/24 14:12 Pulse 72 07/12/24 14:12 BP 150/102 H 07/12/24 14:12 Pulse Ox 98 07/12/24 14:12 Oxygen Delivery Method Room Air 07/12/24 14:12 BMI result Body Mass Index 40.2 Tobacco/Smoking Status: Tobacco use Status Tobacco use date assessed 06/13/24 07/12/24 14:13 Patient Tobacco Use Status Never used Tobacco 07/12/24 14:13 e-Cigarette/Vaping Use Never Used 07/12/24 14:13 Thrive Assessment: Date of Thrive Assessment Date Thrive assessed 06/13/24 07/12/24 14:13 Const General: healthy appearing, no acute distress, alert and awake Nutritional Appearance: well nourished Orientation/consciousness: oriented to person, oriented to place and oriented to time HENMT Ears: TM's normal bilaterally General nose exam: Normal nasal mucous membranes and turbinates present Eyes Conjunctivae: conjunctivae normal Sclerae: sclerae normal Pupils: Equal, round and reactive pupils present Neck Neck: Yes no lymphadenopathy and Yes no JVD Thyroid: Thyroid normal Carotids: no bruits Resp Effort & Inspection: normal respiratory effort and not tachypneic Auscultation: no crackles, no rales, no rhonchi and no wheezes Cardio Rate: regular rate Rhythm: regular rhythm Heart sounds: no murmurs and normal S1 and S2 GI Palpation (GI): Soft to palpation, nontender, no hepatomegaly and no splenomegaly Auscultation: normal bowel sounds Skin General skin exam: no rashes or lesions noted and dry skin Neuro General: oriented to person, oriented to place and oriented to time Cranial nerves: Yes Equal, round and reactive pupils present Speech: No Abnormal speech present Gait exam (Neuro): Normal gait present Motor exam (neuro): no tremor noted Extrem Right upper extremity: full ROM Left upper extremity: full ROM Right lower extremity: full ROM; no edema Left lower extremity: full ROM; no edema Psych Mental Status: mental status grossly normal Speech and movement: Normal speech and movement present Affect: normal affect Attitude: cooperative Thought process: Normal thought process present Coding Level of Care Code Est Pt Level 4 (84767) Diagnoses Primary hypertension I10 Hypertension type: primary hypertension Attention deficit hyperactivity disorder (ADHD), predominantly inattentive type F90.0 Attention deficit-hyperactivity disorder type: predominantly inattentive Mild intermittent asthma without complication J45.20 Asthma severity: mild Asthma persistence: intermittent Asthma complication type: uncomplicated Assessment & Plan Assessment & Plan (1) HTN (hypertension): Code(s): I10 - Essential (primary) hypertension Category: Medical Qualifiers: Hypertension type: primary hypertension Qualified Code(s): I10 - Essential (primary) hypertension Plan: Patient's blood pressure elevated today in office. We have transitioned to losartan 100 mg which seems to be effective.. Has had side effects to both amlodipine and hydrochlorothiazide. He has noted a reduction in his blood pressure since reducing bit of caffeine . His blood pressures at home 130 systolic. Will add on doxazosin to help optimize his blood pressure bit more. Will continue to monitor blood pressure with goal blood pressures to remain below 140/90 (2) ADHD: Code(s): F90.9 - Attention-deficit hyperactivity disorder, unspecified type Category: Medical Qualifiers: Attention deficit-hyperactivity disorder type: predominantly inattentive Qualified Code(s): F90.0 - Attention-deficit hyperactivity disorder, predominantly inattentive type Plan: As per HPI patient has been reporting mental fog and difficulty with attention. Has not been treated for his ADD for quite some time now. Was seeing a psychiatrist and was receiving stimulant medication for his ADHD disorder. He has not noted any side effects has not also not noted noticeable effect on his attention focus. He is willing to up titrate to 80 mg of Strattera (3) Asthma: Comment: He has longstanding history of bronchial asthma, Has had allergy shots in the past. Bronchial asthma is mild with seasonal flare ups. With the current medical regimen it is well controlled . Code(s): J45.909 - Unspecified asthma, uncomplicated Category: Medical Qualifiers: Asthma severity: mild Asthma persistence: intermittent Asthma complication type: uncomplicated Qualified Code(s): J45.20 - Mild intermittent asthma, uncomplicated Plan: He reports his asthma is well controlled with maintenance inhaler. Tried taking holiday from his maintenance inhaler Advair though reports has been symptoms had returned. We did discuss the possibility of his maintenance asthma inhaler active ingredient causing hypertension Medications: New doxazosin 1 mg PO DAILY 30 tabs 0RF 30 days I10 - Essential (primary) hypertension atomoxetine (Strattera) 80 mg PO DAILY 90 caps 1RF 90 days F90.0 - Attention-deficit hyperactivity disorder, predominantly inattentive type Changed From losartan 100 mg PO DAILY 90 tabs 3RF I10 - Essential (primary) hypertension To losartan 100 mg PO DAILY 90 tabs 1RF 90 days I10 - Essential (primary) hypertension Discontinued atomoxetine (Strattera) Discontinued Reason: Doctor's Order 40 mg PO DAILY 30 days 30 caps 1RF F90.0 - Attention-deficit hyperactivity disorder, predominantly inattentive type
--- OUTSIDE RECORDS SUMMARY | 2024-07-12 17:42 | XMS_ITS ---
Author Organization [facility] Address [address] [place] [address] Care Team Providers Care Director Of Program Management Name Role Phone CRISTINO DOWLING Unavailable [phone] REASON FOR VISIT 6 week f/u Encounters Encounter Location Date Provider Diagnosis [facility] [address] [place] [address] 03/23/2024 CRISTINO DOWLING PLAN OF TREATMENT No Information Progress Notes * Josefina HAMOB:1980 ( 43 yo M)Acc No.[id number]:03/23/2024 Patient:??Bill HAM Provider:??CRISTINO DOWLING PA-C :1980?Age:43 Y?Sex:Ma le Date:03/23/2024 Address: [place] [address] [facility] Subjective: * Chief Complaints: * ?1. 6 week f/u. * Medical History:?? Objective: Assessment: Plan: * Treatment: * Images: Billing Information: * Visit Code:?? * Procedure Codes:?? * Sign off status: Pending * Provider:??CRISTINO DOWLING PA-C Date:??07/2023
--- OUTSIDE RECORDS SUMMARY | 2024-07-12 17:42 | XMS_ITS ---
Author Organization [facility] Address [address] [place] [address] Care Team Providers Care Repairer Sash And Door Name Role Phone CRISTINO DOWLING Unavailable [phone] REASON FOR VISIT wegovy approval Encounters Encounter Location Date Provider Diagnosis [facility] [address] [place] [address] 12/23/2023 CRISTINO DOWLING PLAN OF TREATMENT No Information Progress Notes * Josefina HAMOB:1980 ( 43 yo M)Acc No.[id number]:12/23/2023 Patient:??Doc HAM :1980?Age:43 Y?Sex:Luis moss Address: [place] [address] * true * Date:??
--- OUTSIDE RECORDS SUMMARY | 2024-07-12 17:42 | XMS_ITS ---
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 Could consider compounded semaglutide. We will discuss [...] weight loss medications although cannot submit to [employer] until at least 3 consecutive months. We [...] secondary to the medication not being in [employer]'s formulary. 06/22/2023: Weight: 287.3 lbs, BMI: 42.42. [...] Dictation was accomplished with the use of [employer] voice recognition software, prone to medical misidentifications [...] insurance until 3 consecutive months due to [employer]. Could consider compounded semaglutide. We will discuss [...] weight loss medications although cannot submit to [employer] until at least 3 consecutive months. We [...] secondary to the medication not being in [employer]'s formulary. 06/22/2023: Weight: 287.3 lbs, BMI: 42.42. [...] Dictation was accomplished with the use of [employer] voice recognition software, prone to medical misidentifications [...] insurance until 3 consecutive months due to [employer]. Could consider compounded semaglutide. We will discuss [...] weight loss medications although cannot submit to [employer] until at least 3 consecutive months. We [...] to the medication not being in [employer]'s formulary. 06/22/2023: Weight: 287.3 lbs, BMI: 42.42. [...] Dictation was accomplished with the use of [employer] voice recognition software, prone to medical misidentifications [...] insurance until 3 consecutive months due to [employer]. Could consider compounded semaglutide. We will discuss [...] weight loss medications although cannot submit to [employer] until at least 3 consecutive months. We [...] to the medication not being in [employer]'s formulary. 06/22/2023: Weight: 287.3 lbs, BMI: 42.42. [...] Dictation was accomplished with the use of [employer] voice recognition software, prone to medical misidentifications [...] insurance until 3 consecutive months due to [employer]. Could consider compounded semaglutide. We will discuss [...] weight loss medications although cannot submit to [employer] until at least 3 consecutive months. We [...] to the medication not being in [employer]'s formulary. 06/22/2023: Weight: 287.3 lbs, BMI: 42.42. [...] Dictation was accomplished with the use of [employer] voice recognition software, prone to medical misidentifications [...] * Josefina HAMOB:1980 ( 43 yo M)Acc No.[id number]:02/08/2024 Patient:??Bill HAM Provider:??CRISTINO DOWLING PA-C :1980?Age:43 Y?Sex:Luis le Date:02/08/2024 Address: [place] [facility] Subjective: * Chief Complaints: * ?1. Pt [...] dm. 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 [...] insurance until 3 consecutive months due to [employer]. Could consider compounded semaglutide. We will discuss [...] weight loss medications although cannot submit to [employer] until at least 3 consecutive months. We [...] secondary to the medication not being in [employer]'s formulary. 06/22/2023: Weight: 287.3 lbs, BMI: 42.42. [...] Dictation was accomplished with the use of [employer] voice recognition software, prone to medical misidentifications and grammatical errors. This is unintentional and the practitioner does try to identify and correct these, but some could still be present. Please do not hesitate to contact practitioner for clarification. Plan: * Treatment: * Procedure Codes:??48561 P/M BOTTOMER OPERATOR, INDIV 15 MIN * Images: Billing Information: * Visit Code:?? 47627 Office Visit, Est Pt., Level 3. * Procedure Codes:?? 03572 P/M BOTTOMER OPERATOR, INDIV 15 MIN. * Sign off [...]
--- OUTSIDE RECORDS SUMMARY | 2024-07-12 17:42 | XMS_ITS | Patient Health Record ---
Author Organization [facility] Address [address] [place] [address] Care Team Providers Care Complex Care Nurse Name Role Phone CRISTINO DOWLING Unavailable [phone] ALLERGIES No Known Allergies REASON FOR REFERRAL [...] Notes Are you a nonsmoker Section Notes: activities therapist alcohol: denies tob: denies drug: denies activities therapist alcohol: denies tob: denies drug: denies activities therapist alcohol: denies tob: denies drug: denies activities therapist alcohol: denies tob: denies drug: denies activities therapist alcohol: denies tob: denies drug: denies activities therapist alcohol: denies tob: denies drug: denies activities therapist alcohol: denies tob: denies drug: denies activities therapist alcohol: denies tob: denies drug: denies activities therapist alcohol: denies tob: denies drug: denies activities therapist alcohol: denies tob: denies drug: denies activities therapist alcohol: denies tob: denies drug: denies activities therapist alcohol: denies tob: denies drug: denies activities therapist alcohol: denies tob: denies drug: denies PROBLEMS Problem Type ICD Code Onset Dates Problem Status W/U Status Risk SNOMED Code Notes Problem Hypertension, unspecified type (I10) Active confirmed 98134091 Problem Intermittent asthma without complication, unspecified asthma severity (J45.20) Active confirmed 453785219 VITAL SIGNS Heart Rate 76 /min 02/08/2024 Oximetry 99 % 02/08/2024 Blood pressure diastolic 88 mm Hg 02/08/2024 Height 69 in 02/08/2024 Blood pressure systolic 142 mm Hg 02/08/2024 Weight 262.6 lbs 02/08/2024 BMI 38.78 kg/m2 02/08/2024 Encounters Encounter Location Date Provider Diagnosis [facility] [address] [place] [address] 03/23/2024 CRISTINO JOSEY [facility] [address] [place] [address] 07/30/2023 CRISTINO JOSEY Other obesity E66.8 ; Body mass index (BMI) of 40.1 to 44.9 in adult Z68.41 ; Intermittent asthma without complication, unspecified asthma severity J45.20 ; Hypertension, unspecified type I10 and Depression, unspecified depression type F32.A [facility] [address] [place] [address] 09/08/2023 CRISTINO JOSEY Other obesity E66.8 ; Body mass index (BMI) of 40.1 to 44.9 in adult Z68.41 ; Intermittent asthma without complication, unspecified asthma severity J45.20 ; Hypertension, unspecified type I10 and Depression, unspecified depression type F32.A [facility] [address] [place] [address] 10/28/2023 CRISTINO JOSEY Other obesity E66.8 ; BMI 39.0-39.9,adult Z68.39 ; Intermittent asthma without complication, unspecified asthma severity J45.20 ; Hypertension, unspecified type I10 and Depression, unspecified depression type F32.A [facility] [address] [place] [address] 12/22/2023 CRISTINO JOSEY Other obesity E66.8 ; BMI 39.0-39.9,adult Z68.39 ; Intermittent asthma without complication, unspecified asthma severity J45.20 ; Hypertension, unspecified type I10 and Depression, unspecified depression type F32.A [facility] [address] [place] [address] 02/08/2024 CRISTINO DOWLING Obesity (BMI 30-39.9 ) E66.9 ; BMI 38.0-38.9,adult Z68.38 ; Hypertension, unspecified type I10 ; Intermittent asthma without complication, unspecified asthma severity J45.20 and Depression, unspecified depression type F32.A [facility] [address] [facility] [place] [address] 12/23/2023 CRISTINO DOWLING ASSESSMENTS Encounter Date Diagnosis [...] insurance until 3 consecutive months due to [employer]. Could consider compounded semaglutide. We will discuss [...] weight loss medications although cannot submit to [employer] until at least 3 consecutive months. We [...] secondary to the medication not being in [employer]'s formulary. 06/22/2023: Weight: 287.3 lbs, BMI: 42.42. [...] Dictation was accomplished with the use of [employer] voice recognition software, prone to medical misidentifications [...] until 3 consecutive months due to [facility]. Could consider compounded semaglutide. We will [...] weight loss medications although cannot submit to [employer] until at least 3 consecutive months. We [...] to the medication not being in [employer]'s formulary. 06/22/2023: Weight: 287.3 lbs, BMI: 42.42. [...] Dictation was accomplished with the use of [employer] voice recognition software, prone to medical misidentifications [...] insurance until 3 consecutive months due to [employer]. Could consider compounded semaglutide. We will discuss [...] weight loss medications although cannot submit to [employer] until at least 3 consecutive months. We [...] to the medication not being in [employer]'s formulary. 06/22/2023: Weight: 287.3 lbs, BMI: 42.42. [...] Dictation was accomplished with the use of [employer] voice recognition software, prone to medical misidentifications [...] insurance until 3 consecutive months due to [employer]. Could consider compounded semaglutide. We will discuss [...] weight loss medications although cannot submit to [employer] until at least 3 consecutive months. We [...] secondary to the medication not being in [employer]'s formulary. 06/22/2023: Weight: 287.3 lbs, BMI: 42.42. [...] Dictation was accomplished with the use of [employer] voice recognition software, prone to medical misidentifications [...] insurance until 3 consecutive months due to [employer]. Could consider compounded semaglutide. We will discuss [...] weight loss medications although cannot submit to [employer] until at least 3 consecutive months. We [...] secondary to the medication not being in [employer]'s formulary. 06/22/2023: Weight: 287.3 lbs, BMI: 42.42. [...] Dictation was accomplished with the use of [employer] voice recognition software, prone to medical misidentifications [...] insurance until 3 consecutive months due to [employer]. Could consider compounded semaglutide. We will discuss [...] weight loss medications although cannot submit to [employer] until at least 3 consecutive months. We [...] to the medication not being in health [employer]'s formulary. 06/22/2023: Weight: 287.3 lbs, BMI: 42.42. [...] Dictation was accomplished with the use of [employer] voice recognition software, prone to medical misidentifications [...] insurance until 3 consecutive months due to [employer]. Could consider compounded semaglutide. We will discuss [...] weight loss medications although cannot submit to [employer] until at least 3 consecutive months. We [...] to the medication not being in health [employer]'s formulary. 06/22/2023: Weight: 287.3 lbs, BMI: 42.42. [...] Dictation was accomplished with the use of [employer] voice recognition software, prone to medical misidentifications [...] insurance until 3 consecutive months due to [employer]. Could consider compounded semaglutide. We will discuss [...] weight loss medications although cannot submit to [employer] until at least 3 consecutive months. We [...] to the medication not being in [employer] formulary. 06/22/2023: Weight: 287.3 lbs, BMI: 42.42. [...] Dictation was accomplished with the use of [employer] voice recognition software, prone to medical misidentifications [...] until 3 consecutive months due to [facility]. Could consider compounded semaglutide. We will [...] weight loss medications although cannot submit to [employer] until at least 3 consecutive months. We [...] to the medication not being in [employer] formulary. 06/22/2023: Weight: 287.3 lbs, BMI: 42.42. [...] Dictation was accomplished with the use of [employer] voice recognition software, prone to medical misidentifications [...] insurance until 3 consecutive months due to [employer]. Could consider compounded semaglutide. We will discuss [...] weight loss medications although cannot submit to [employer] until at least 3 consecutive months. We [...] secondary to the medication not being in [employer]'s formulary. 06/22/2023: Weight: 287.3 lbs, BMI: 42.42. [...] Dictation was accomplished with the use of [employer] voice recognition software, prone to medical misidentifications [...] insurance until 3 consecutive months due to [employer]. Could consider compounded semaglutide. We will discuss [...] weight loss medications although cannot submit to [employer] until at least 3 consecutive months. We [...] secondary to the medication not being in [employer]'s formulary. 06/22/2023: Weight: 287.3 lbs, BMI: 42.42. [...] Dictation was accomplished with the use of [employer] voice recognition software, prone to medical misidentifications [...] insurance until 3 consecutive months due to [employer]. Could consider compounded semaglutide. We will discuss [...] weight loss medications although cannot submit to [employer] until at least 3 consecutive months. We [...] to the medication not being in [employer] formulary. 06/22/2023: Weight: 287.3 lbs, BMI: 42.42. [...] Dictation was accomplished with the use of [employer] voice recognition software, prone to medical misidentifications [...] until 3 consecutive months due to [facility]. Could consider compounded semaglutide. We will [...] weight loss medications although cannot submit to [employer] until at least 3 consecutive months. We [...] to the medication not being in [employer] formulary. 06/22/2023: Weight: 287.3 lbs, BMI: 42.42. [...] Dictation was accomplished with the use of [employer] voice recognition software, prone to medical misidentifications [...] insurance until 3 consecutive months due to [employer]. Could consider compounded semaglutide. We will discuss [...] weight loss medications although cannot submit to [employer] until at least 3 consecutive months. We [...] secondary to the medication not being in [employer] formulary. 06/22/2023: Weight: 287.3 lbs, BMI: 42.42. [...] Dictation was accomplished with the use of [employer] voice recognition software, prone to medical misidentifications [...] insurance until 3 consecutive months due to [employer]. Could consider compounded semaglutide. We will discuss [...] weight loss medications although cannot submit to [employer] until at least 3 consecutive months. We [...] secondary to the medication not being in [employer]'s formulary. 06/22/2023: Weight: 287.3 lbs, BMI: 42.42. [...] Dictation was accomplished with the use of [employer] voice recognition software, prone to medical misidentifications [...] insurance until 3 consecutive months due to [employer]. Could consider compounded semaglutide. We will discuss [...] weight loss medications although cannot submit to [employer] until at least 3 consecutive months. We [...] secondary to the medication not being in [employer]'s formulary. 06/22/2023: Weight: 287.3 lbs, BMI: 42.42. [...] Dictation was accomplished with the use of [employer] voice recognition software, prone to medical misidentifications [...] insurance until 3 consecutive months due to [employer]. Could consider compounded semaglutide. We will discuss [...] weight loss medications although cannot submit to [employer] until at least 3 consecutive months. We [...] to the medication not being in health [employer]'s formulary. 06/22/2023: Weight: 287.3 lbs, BMI: 42.42. [...] Dictation was accomplished with the use of [employer] voice recognition software, prone to medical misidentifications [...] insurance until 3 consecutive months due to [employer]. Could consider compounded semaglutide. We will discuss [...] weight loss medications although cannot submit to [employer] until at least 3 consecutive months. We [...] to the medication not being in [employer] formulary. 06/22/2023: Weight: 287.3 lbs, BMI: 42.42. [...] Dictation was accomplished with the use of [employer] voice recognition software, prone to medical misidentifications [...] insurance until 3 consecutive months due to [employer]. Could consider compounded semaglutide. We will discuss [...] weight loss medications although cannot submit to [employer] until at least 3 consecutive months. We [...] secondary to the medication not being in [employer]'s formulary. 06/22/2023: Weight: 287.3 lbs, BMI: 42.42. [...] Dictation was accomplished with the use of [employer] voice recognition software, prone to medical misidentifications [...] insurance until 3 consecutive months due to [employer]. Could consider compounded semaglutide. We will discuss [...] weight loss medications although cannot submit to [employer] until at least 3 consecutive months. We [...] to the medication not being in [employer] formulary. 06/22/2023: Weight: 287.3 lbs, BMI: 42.42. [...] Dictation was accomplished with the use of [employer] voice recognition software, prone to medical misidentifications [...] until 3 consecutive months due to [facility]. Could consider compounded semaglutide. We will [...] weight loss medications although cannot submit to [employer] until at least 3 consecutive months. We [...] to the medication not being in [employer] formulary. 06/22/2023: Weight: 287.3 lbs, BMI: 42.42. [...] Dictation was accomplished with the use of [employer] voice recognition software, prone to medical misidentifications [...] insurance until 3 consecutive months due to [employer]. Could consider compounded semaglutide. We will discuss [...] weight loss medications although cannot submit to [employer] until at least 3 consecutive months. We [...] to the medication not being in health [employer] formulary. 06/22/2023: Weight: 287.3 lbs, BMI: 42.42. [...] Dictation was accomplished with the use of [employer] voice recognition software, prone to medical misidentifications [...] insurance until 3 consecutive months due to [employer]. Could consider compounded semaglutide. We will discuss [...] weight loss medications although cannot submit to [employer] until at least 3 consecutive months. We [...] to the medication not being in [employer] formulary. 06/22/2023: Weight: 287.3 lbs, BMI: 42.42. [...] questions/concerns arise. Case discussed with collaborating physician Eirc Moe who reviewed the assessment and plan. Chart, medications, labs, vital signs reviewed. Dictation was accomplished with the use of [employer] voice recognition software, prone to medical misidentifications [...] insurance until 3 consecutive months due to [employer]. Could consider compounded semaglutide. We will discuss [...] weight loss medications although cannot submit to [employer] until at least 3 consecutive months. We [...] secondary to the medication not being in [employer] formulary. 06/22/2023: Weight: 287.3 lbs, BMI: 42.42. [...] Dictation was accomplished with the use of [employer] voice recognition software, prone to medical misidentifications [...] insurance until 3 consecutive months due to [employer]. Could consider compounded semaglutide. We will discuss [...] weight loss medications although cannot submit to [employer] until at least 3 consecutive months. We [...] secondary to the medication not being in [employer]'s formulary. 06/22/2023: Weight: 287.3 lbs, BMI: 42.42. [...] Dictation was accomplished with the use of [employer] voice recognition software, prone to medical misidentifications [...] Insured Coverage Start Date Coverage End Date [facility] [address] [place] [address] [id number] Bill Ham Self - patient is the insured MEDICATIONS ADMINISTERED Medication Instructions Date of Administration Dosage Notes Semaglutide 11/17/2022 sema 0.25mg Semaglutide 11/24/2022 lot# [id number] 0.25mg Semaglutide 12/01/2022 sema 0.25mg Semaglutide 12/08/2022 lot# [id number] 0.25mg Semaglutide 12/18/2022 0.5 mg sema .5mg MEDICAL (GENERAL) HISTORY Medical History History ICD Code depression hypertension asthma sleep apnea on CPAP obesity
== END 2024-07-12 15:11 | disposition home or self-care (01) ==
LOC: HO.HMCH 14:11
PROVIDERS: PCP Physician Assistant; Visit Provider Physician Assistant
DX: I10 Essential (primary) hypertension (principal); F90.0 Attention-deficit hyperactivity disorder, predominantly inattentive type; J45.20 Mild intermittent asthma, uncomplicated

== ENCOUNTER 2024-09-06 14:09 | Outpatient (AMB) | payer OTHER, SELFPAY ==
--- NOTE | 2024-09-06 14:11 | MHC.PC.OV ---
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 Accompanied by: Self / Same As Patient Allergies levofloxacin [From LEVAQUIN] Allergy (Mild, Verified 09/06/24 14:40) HIVES egg Allergy (Unknown, Verified 09/06/24 14:40) Unknown seafood Allergy (Unknown, Verified 09/06/24 14:40) Unknown amlodipine Adverse Reaction (Intermediate, Verified 09/06/24 14:40) ineffective hydrochlorothiazide Adverse Reaction (Intermediate, Verified 09/06/24 14:40) orthostatic hypotension Medication List - Last Reconciled 09/06/24 by Joe Mendieta PA-C albuterol sulfate 90 mcg/actuation (Ventolin HFA) 2 puffs inhalation Q4-6H PRN 30 days albuterol sulfate 2.5 mg (3 mL) continuous nebulization Q4-6H PRN atomoxetine (Strattera) 80 mg PO DAILY 90 days doxazosin 1 mg PO DAILY 30 days fluticasone propion-salmeterol 250-50 mcg/dose (Advair Diskus) 1 inh inhalation BID 90 days fluticasone propionate 50 mcg/actuation 2 sprays intranasal DAILY PRN losartan 100 mg PO DAILY 90 days montelukast 10 mg PO DAILY Tobacco use date assessed: 06/13/24 Dental Screening Dental Screen Date: 06/13/24 HPI f/u HTN / ADHD HPI Details Patient is a 43-year-old male here today for a follow-up visit. Patient has a past medical history is hypertension, asthma, obesity, hypogonadism been impaired glucose metabolism. .. ADD: Of note does have history of ADD and was on stimulant medication for ADD disorder though stopped taking this medication as he felt it became ineffective. He has been on Strattera 80 mg over the last month and a half and reports decent affect on his attention and focus. He reports he has been having more dreams that is somewhat disrupted sleep. He will continue his current dose of Strattera and consider weaning down in off if dreams continued to disruptive sleep. .. Hypertension: Blood pressure elevated today in office. He has been monitoring his blood pressure at home and does report 140s-160s systolic more regularly. He has reduced his caffeine intake. Of note has been sensitive to diuretics and amlodipine has been ineffective. He has underwent renal ultrasounds did not show any renal artery stenosis. PLAN: Will try to add doxazosin 1 mg to his med regime to try to regularly blood pressure. Due to his continued elevations in his blood pressure will try to do a cardiac stress test to evaluate for cardiac ischemia on physical exertion. [facility] Medical History Allergic rhinitis Morbid obesity Desensitization to allergy shot Fatty liver Anemia Anxiety Obstructive sleep apnea Asthma Surgical History History of vasectomy Family History Father Hypertension Hyperlipidemia Mother No problems noted. Maternal Grandmother Myocardial infarction Maternal Grandfather Testicular cancer Paternal Grandmother Pancreatic cancer Paternal Grandfather Colon cancer Paternal Aunt Colon cancer Brother Bipolar disorder Other Mental health disorder Social History Housing: House Alcohol intake: former Year quit: 2021 Patient Tobacco Use Status: Never used Tobacco Years Smoked: teenage stopped e-Cigarette/Vaping Use: Never Used Second Hand Smoke Exposure: No service: No Current occupational status: employed Current occupation: [employer] Cognitive needs: No Hearing needs: No Vision needs: No Questionnaire PHQ-9 Over the last 2 weeks, how often have you been bothered by any of the following problems? 1. Little interest or pleasure in doing things: not at all 2. Feeling down, depressed, or hopeless: not at all 3. Trouble falling or staying asleep, or sleeping too much: not at all 4. Feeling tired or having little energy: not at all 5. Poor appetite or overeating: not at all 6. Feeling bad about yourself - or that you are a failure or have let yourself or your family down: not at all 7. Trouble concentrating on things, such as reading the newspaper or watching television: not at all 8. Moving or speaking so slowly that other people could have noticed. Or the opposite - being so fidgety or restless that you have been moving around a lot more than usual: not at all 9. Thoughts that you would be better off or of hurting yourself in some way: not at all Total score: 0 Depression Screening Interpretation: Negative Depression Screening Done: Yes 79819 - PHQ-9 Billing: Yes Source: Developed by Drs. Miquel Regan, Gloria Castle, Lex Coello and colleagues, with an educational cheo from [employer] Thrive Questionnaire Date Thrive assessed: 09/06/24 I am a: Patient What is your living situation today?: I have a steady place to live Within the past 12 months, did the food you bought not last and you didn't have the money to get more?: Never true Within the past 12 months, did you worry whether your food would run out before you got money to buy more?: Never true Do you have trouble paying for medicines?: No Do you have trouble getting transportation to medical appointments?: No Do you have trouble paying your heating and electricity bill?: No Do you have trouble taking care of your child, family member or friend?: No Do you have trouble with day-to-day activities such as bathing, preparing meals, shopping, managing finances, etc.?: No Are you currently unemployed and looking for a job?: No Are you interested in more education?: No Please select the resources that you would like help with: None Currently or been in a relationship where the following occur: No concerns reported THRIVE Score: 0 AUDIT C Alcohol Use Questionnaire (AUDIT-C) 1. How often do you have a drink containing alcohol?: Never 3. How often do you have six or more drinks on one occasion?: Never Total Score: 0 MO-7 AMB Questionnaire MO-7 Date MO - 7 assessed: 09/06/24 Feeling nervous, anxious, or on edge: 0 = Not at all Not being able to stop or control worryin = Not at all Worrying too much about different things: 0 = Not at all Trouble relaxin = Not at all Being so restless that it is hard to sit still: 0 = Not at all Becoming easily annoyed or irritable: 0 = Not at all Feeling afraid as if something awful might happen: 0 = Not at all Total MO-7 score (0-4 normal; 5-9 mild; 10-14 moderate; 15-21 severe): 0 Source: Developed by Drs. Miquel Regan, Gloria Castle, Lex Coello and colleagues, with an educational cheo from [employer] MO-7 Assessment Billing MO-7 Assessment Tool: MO-7 Assessment 20504 Review of Systems Const Denies headache(s) Eyes Denies loss of vision ENT Denies vertigo, Denies dizziness, Denies headache(s) and Denies sore throat Card Denies chest pain, Denies leg edema and Denies lightheadedness Resp Denies cough, Denies hemoptysis and Denies wheezing GI Denies abdominal pain, Denies melena, Denies constipation, Denies diarrhea and Denies vomiting Denies dysuria, Denies urinary frequency and Denies urinary urgency Musc Denies arthralgias, Denies joint swelling, Denies numbness and Denies tingling Neuro Denies Abnormal speech present, Denies behavioral changes, Denies vertigo, Denies dizziness, Denies headache(s), Denies loss of vision, Denies memory loss, Denies numbness and Denies tingling Psych Denies anxiety, Denies behavioral changes, Denies depression, Denies memory loss and Denies panic attacks Christian/Lymph Denies easy bleeding and Denies easy bruising Aller/Immun Denies wheezing Physical exam (Primary Care) Vital Signs: Last Vital Signs Temp 97.3 F 09/06/24 14:22 Pulse 77 09/06/24 14:22 BP 148/102 H 09/06/24 14:22 Pulse Ox 96 09/06/24 14:22 Oxygen Delivery Method Room Air 09/06/24 14:22 BMI result Body Mass Index 40.5 BMI Assessment/Plan discussion: High BMI High, discussed plan: lifestyle, weight reduction, dietary and physical activity Tobacco/Smoking Status: Tobacco use Status Tobacco use date assessed 06/13/24 09/06/24 14:12 Patient Tobacco Use Status Never used Tobacco 09/06/24 14:12 e-Cigarette/Vaping Use Never Used 09/06/24 14:12 PHQ-9: PHQ-9 Score PHQ-9: Total score 0 09/06/24 14:44 Depression Screening Interpretation: Negative Thrive Assessment: Date of Thrive Assessment Date Thrive assessed 09/06/24 09/06/24 14:22 Currently or been in a relationship where the following occur: No concerns reported Const General: healthy appearing, no acute distress, alert and awake Nutritional Appearance: well nourished Orientation/consciousness: oriented to person, oriented to place and oriented to time HENMT Ears: TM's normal bilaterally General nose exam: Normal nasal mucous membranes and turbinates present Eyes Conjunctivae: conjunctivae normal Sclerae: sclerae normal Pupils: Equal, round and reactive pupils present Neck Neck: Yes no lymphadenopathy and Yes no JVD Thyroid: Thyroid normal Carotids: no bruits Resp Effort & Inspection: normal respiratory effort and not tachypneic Auscultation: no crackles, no rales, no rhonchi and no wheezes Cardio Rate: regular rate Rhythm: regular rhythm Heart sounds: no murmurs and normal S1 and S2 GI Palpation (GI): Soft to palpation, nontender, no hepatomegaly and no splenomegaly Auscultation: normal bowel sounds Skin General skin exam: no rashes or lesions noted and dry skin Neuro General: oriented to person, oriented to place and oriented to time Cranial nerves: Yes Equal, round and reactive pupils present Speech: No Abnormal speech present Gait exam (Neuro): Normal gait present Motor exam (neuro): no tremor noted Extrem Right upper extremity: full ROM Left upper extremity: full ROM Right lower extremity: full ROM; no edema Left lower extremity: full ROM; no edema Psych Mental Status: mental status grossly normal Speech and movement: Normal speech and movement present Affect: normal affect Attitude: cooperative Thought process: Normal thought process present Coding Level of Care Code Est Pt Level 4 (44635) Diagnoses Uncontrolled hypertension I10 Additional Codes MO-7 Assessment Billing - MO-7 Assessment Tool: MO-7 Assessment 29713 ([id number]) PHQ-9 - 40148 - PHQ-9 Billing: Yes ([id number]) Assessment & Plan Assessment & Plan (1) Uncontrolled hypertension: Code(s): I10 - Essential (primary) hypertension Category: Medical Plan: Patient continues to have uncontrolled hypertension. Will add on doxazosin 1 mg for better blood pressure control. Of note had side effects to diuretics and amlodipine was not effective on reducing his blood pressure. Due to his uncontrolled blood pressure as well will send for cardiac stress testing to evaluate for cardiac ischemia on physical exertion. Will also order cardiac echo to evaluate for any structural heart disease Orders: Orders CA stress test Today I10 - Essential (primary) hypertension CA echo transthoracic complete Today I10 - Essential (primary) hypertension Medications: Refilled doxazosin 1 mg PO DAILY 30 days 30 tabs 3RF I10 - Essential (primary) hypertension
[2024-09-06 14:22] VITALS: BP 148/102; PULSE 77; TEMP 36.3; O2SAT 96; BMI 40.5
--- OUTSIDE RECORDS SUMMARY | 2024-09-06 15:32 | XMS_ITS ---
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 6 week f/u. * Medical History:? Objective: * Vitals:? Assessment: Plan: * Treatment: * Billing Information: * Visit Code:? * Procedure Codes:? * Electronic signature of KAITLIN KELLY PA-C on 09/06/2024 at 03:32 PM EDT Sign off status: Pending * Provider:?CRISTINO DOWLING PA-C Date:?2023 Generated for [facility]ath/Ean/eTransmitting on:?09/06/2024 03:32 PM EDT
--- OUTSIDE RECORDS SUMMARY | 2024-09-06 15:32 | XMS_ITS | Patient Health Record ---
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 Name Role Phone CRISTINO KELLY Unavailable [phone] Allergies No Known Allergies Reason For Referral No Information Medications Medication SIG (Take, Route, Frequency, Duration) Notes Start Date End Date Status Lisinopril 40 MG 1 tablet Orally Once a day Active Advair Diskus 100-50 MCG/ACT 1 puff Inhalation Twice a day Active Montelukast Sodium 10 MG 1 tablet Orally Once a day Active Wegovy 1.7 MG/0.75ML 1.7 mg Subcutaneous weekly for 30 days Active Social History Tobacco Use: Social History Observation Description Date Details (start date - stop date) Never Smoker NA - NA Tobacco Use/Smoking Question Answer Notes 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 tob: denies drug: denies 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 alcohol: denies tob: denies drug: denies 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 alcohol: denies tob: denies drug: denies 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 alcohol: denies tob: denies drug: denies 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 alcohol: denies tob: denies drug: denies 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 alcohol: denies tob: denies drug: denies 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 alcohol: denies tob: denies drug: denies 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 alcohol: denies tob: denies drug: denies 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 alcohol: denies tob: denies drug: denies 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 alcohol: denies tob: denies drug: denies 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 alcohol: denies tob: denies drug: denies 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 alcohol: denies tob: denies drug: denies 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 alcohol: denies tob: denies drug: denies Problems Problem Type SNOMED Code ICD Code Onset Dates Problem Status W/U Status Risk Notes Problem 26394605 Hypertension, unspecified type (I10) Active confirmed Problem [id number] Intermittent asthma without complication, unspecified asthma severity (J45.20) Active confirmed Vital Signs Heart Rate 76 /min 02/08/2024 Oximetry 99 % 02/08/2024 Blood pressure diastolic 88 mm Hg 02/08/2024 Height 69 in 02/08/2024 Blood pressure systolic 142 mm Hg 02/08/2024 Weight 262.6 lbs 02/08/2024 BMI 38.78 kg/m2 02/08/2024 Encounters Encounter Location Date Provider Diagnosis [address] [address] 09/08/2023 CRISTINO KELLY Other obesity E66.8 ; Body mass index (BMI) of 40.1 to 44.9 in adult Z68.41 ; Intermittent asthma without complication, unspecified asthma severity J45.20 ; Hypertension, unspecified type I10 and Depression, unspecified depression type F32.A [address] [address] 10/28/2023 CRISTINO KELLY Other obesity E66.8 ; BMI 39.0-39.9,adult Z68.39 ; Intermittent asthma without complication, unspecified asthma severity J45.20 ; Hypertension, unspecified type I10 and Depression, unspecified depression type F32.A [address] [address] 12/22/2023 CRISTINO KELLY Other obesity E66.8 ; BMI 39.0-39.9,adult Z68.39 ; Intermittent asthma without complication, unspecified asthma severity J45.20 ; Hypertension, unspecified type I10 and Depression, unspecified depression type F32.A [address] [id number] 02/08/2024 CRISTINO KELLY Obesity (BMI 30-39.9 ) E66.9 ; BMI 38.0-38.9,adult Z68.38 ; Hypertension, unspecified type I10 ; Intermittent asthma without complication, unspecified asthma severity J45.20 and Depression, unspecified depression type F32.A [address] [id number] 12/23/2023 CRISTINO KELLY Assessments Encounter Date Diagnosis (ICD Code) Assessment Notes Treatment Notes Treatment Clinical Notes Section Notes 09/08/2023 Other obesity (ICD-10 - E66.8) Bill [...] insurance until 3 consecutive months due to [employer] [place]. Could consider compounded semaglutide. We will discuss [...] weight loss medications although cannot submit to [employer] [place] until at least 3 consecutive months. We [...] secondary to the medication not being in [employer] [place]'s formulary. 06/22/2023: Weight: 287.3 lbs, BMI: 42.42. [...] Dictation was accomplished with the use of [employer]agg[employer] voice recognition software, prone to medical misidentifications [...] insurance until 3 consecutive months due to [employer]. Could consider compounded semaglutide. We will discuss [...] weight loss medications although cannot submit to [employer] until at least 3 consecutive months. We [...] secondary to the medication not being in [employer]'s formulary. 06/22/2023: Weight: 287.3 lbs, BMI: 42.42. [...] Dictation was accomplished with the use of [employer] voice recognition software, prone to medical misidentifications [...] insurance until 3 consecutive months due to [facility]. Could consider compounded semaglutide. We will [...] weight loss medications although cannot submit to [employer] [place] until at least 3 consecutive months. We [...] to the medication not being in [facility] [place]'s formulary. 06/22/2023: Weight: 287.3 lbs, BMI: 42.42. [...] Dictation was accomplished with the use of [employer] voice recognition software, prone to medical misidentifications [...] insurance until 3 consecutive months due to [employer] [place]. Could consider compounded semaglutide. We will discuss [...] weight loss medications although cannot submit to [employer] [place] until at least 3 consecutive months. We [...] secondary to the medication not being in [employer] [place]'s formulary. 06/22/2023: Weight: 287.3 lbs, BMI: 42.42. [...] Dictation was accomplished with the use of [employer] voice recognition software, prone to medical misidentifications [...] insurance until 3 consecutive months due to [employer]. Could consider compounded semaglutide. We will discuss [...] weight loss medications although cannot submit to [employer] [place] until at least 3 consecutive months. We [...] to the medication not being in [facility] [place]'s formulary. 06/22/2023: Weight: 287.3 lbs, BMI: 42.42. [...] Dictation was accomplished with the use of [employer] voice recognition software, prone to medical misidentifications [...] insurance until 3 consecutive months due to [employer] [place]. Could consider compounded semaglutide. We will discuss [...] weight loss medications although cannot submit to [facility] until at least 3 consecutive months. [...] to the medication not being in [facility] [place]'s formulary. 06/22/2023: Weight: 287.3 lbs, BMI: 42.42. [...] Dictation was accomplished with the use of [employer] voice recognition software, prone to medical misidentifications [...] insurance until 3 consecutive months due to [employer]. Could consider compounded semaglutide. We will discuss [...] weight loss medications although cannot submit to [employer] until at least 3 consecutive months. We [...] secondary to the medication not being in [employer]'s formulary. 06/22/2023: Weight: 287.3 lbs, BMI: 42.42. [...] Dictation was accomplished with the use of [employer] voice recognition software, prone to medical misidentifications [...] insurance until 3 consecutive months due to [employer] [place]. Could consider compounded semaglutide. We will discuss [...] weight loss medications although cannot submit to [employer] [place] until at least 3 consecutive months. We [...] secondary to the medication not being in [employer] [place]'s formulary. 06/22/2023: Weight: 287.3 lbs, BMI: 42.42. [...] Dictation was accomplished with the use of [employer] voice recognition software, prone to medical misidentifications [...] insurance until 3 consecutive months due to [facility]. Could consider compounded semaglutide. We will [...] weight loss medications although cannot submit to [employer] [place] until at least 3 consecutive months. We [...] to the medication not being in [facility] [place]'s formulary. 06/22/2023: Weight: 287.3 lbs, BMI: 42.42. [...] Dictation was accomplished with the use of [employer] voice recognition software, prone to medical misidentifications [...] insurance until 3 consecutive months due to [employer] [place]. Could consider compounded semaglutide. We will discuss [...] weight loss medications although cannot submit to [employer] [place] until at least 3 consecutive months. We [...] secondary to the medication not being in [employer] [place]'s formulary. 06/22/2023: Weight: 287.3 lbs, BMI: 42.42. [...] Dictation was accomplished with the use of [employer] voice recognition software, prone to medical misidentifications [...] insurance until 3 consecutive months due to [employer]. Could consider compounded semaglutide. We will discuss [...] weight loss medications although cannot submit to [employer] until at least 3 consecutive months. We [...] secondary to the medication not being in [employer] [place]'s formulary. 06/22/2023: Weight: 287.3 lbs, BMI: 42.42. [...] Dictation was accomplished with the use of [employer] voice recognition software, prone to medical misidentifications [...] insurance until 3 consecutive months due to [employer] [place]. Could consider compounded semaglutide. We will discuss [...] weight loss medications although cannot submit to [employer] until at least 3 consecutive months. We [...] to the medication not being in [facility] [place]'s formulary. 06/22/2023: Weight: 287.3 lbs, BMI: 42.42. [...] Dictation was accomplished with the use of [employer] voice recognition software, prone to medical misidentifications [...] insurance until 3 consecutive months due to [employer] [place]. Could consider compounded semaglutide. We will discuss [...] weight loss medications although cannot submit to [employer] [place] until at least 3 consecutive months. We [...] secondary to the medication not being in [employer]'s formulary. 06/22/2023: Weight: 287.3 lbs, BMI: 42.42. [...] Dictation was accomplished with the use of [employer] voice recognition software, prone to medical misidentifications [...] insurance until 3 consecutive months due to [employer]. Could consider compounded semaglutide. We will discuss [...] weight loss medications although cannot submit to [employer] until at least 3 consecutive months. We [...] secondary to the medication not being in [employer]'s formulary. 06/22/2023: Weight: 287.3 lbs, BMI: 42.42. [...] Dictation was accomplished with the use of [employer] voice recognition software, prone to medical misidentifications [...] insurance until 3 consecutive months due to [employer] [place]. Could consider compounded semaglutide. We will discuss [...] weight loss medications although cannot submit to [employer] until at least 3 consecutive months. We [...] secondary to the medication not being in [employer] [place]'s formulary. 06/22/2023: Weight: 287.3 lbs, BMI: 42.42. [...] Dictation was accomplished with the use of [employer] voice recognition software, prone to medical misidentifications [...] insurance until 3 consecutive months due to [employer] [place]. Could consider compounded semaglutide. We will discuss [...] weight loss medications although cannot submit to [employer] [place] until at least 3 consecutive months. We [...] to the medication not being in health [place]'s formulary. 06/22/2023: Weight: 287.3 lbs, BMI: 42.42. [...] Dictation was accomplished with the use of [employer] voice recognition software, prone to medical misidentifications [...] insurance until 3 consecutive months due to [employer] [place]. Could consider compounded semaglutide. We will discuss [...] weight loss medications although cannot submit to [employer] [place] until at least 3 consecutive months. We [...] secondary to the medication not being in [employer] [place]'s formulary. 06/22/2023: Weight: 287.3 lbs, BMI: 42.42. [...] Dictation was accomplished with the use of [employer] voice recognition software, prone to medical misidentifications [...] insurance until 3 consecutive months due to [employer]. Could consider compounded semaglutide. We will discuss [...] weight loss medications although cannot submit to [employer] until at least 3 consecutive months. We [...] secondary to the medication not being in [employer] [place]'s formulary. 06/22/2023: Weight: 287.3 lbs, BMI: 42.42. [...] Dictation was accomplished with the use of [employer] voice recognition software, prone to medical misidentifications [...] insurance until 3 consecutive months due to [employer] [place]. Could consider compounded semaglutide. We will discuss [...] weight loss medications although cannot submit to [employer] [place] until at least 3 consecutive months. We [...] secondary to the medication not being in [employer] [place]'s formulary. 06/22/2023: Weight: 287.3 lbs, BMI: 42.42. [...] Dictation was accomplished with the use of [employer] voice recognition software, prone to medical misidentifications [...] insurance until 3 consecutive months due to [employer]. Could consider compounded semaglutide. We will discuss [...] weight loss medications although cannot submit to [employer] until at least 3 consecutive months. We [...] secondary to the medication not being in [employer]'s formulary. 06/22/2023: Weight: 287.3 lbs, BMI: 42.42. [...] Dictation was accomplished with the use of [employer] voice recognition software, prone to medical misidentifications and grammatical errors. This is unintentional and the practitioner does try to identify and correct these, but some could still be present. Please do not hesitate to contact practitioner for clarification. Plan Of Treatment Pending Test Test Name Order Date HEMOGLOBIN A1c 10/16/2022 INSULIN 10/16/2022 Insurance Providers Payer Name Payer Address Payer Phone Subscriber Number Group Number Insured Name Patient Relationship to Insured Coverage Start Date Coverage End Date [facility] [address] [place] [address] [phone] [id number] Bill Ham Self - patient is the insured Medications Administered Medication Instructions Date of Administration Dosage Notes Semaglutide 11/17/2022 sema 0.25mg Semaglutide 11/24/2022 lot# [id number] 0.25mg Semaglutide 12/01/2022 sema 0.25mg Semaglutide 12/08/2022 lot# [id number] 0.25mg Semaglutide 12/18/2022 0.5 mg sema .5mg Medical (General) History Medical History History ICD Code depression hypertension asthma sleep apnea on CPAP obesity
== END 2024-09-06 15:00 | disposition home or self-care (01) ==
LOC: HO.HMCH 14:10
PROVIDERS: PCP Physician Assistant; Visit Provider Physician Assistant
DX: I10 Essential (primary) hypertension (principal)

== ENCOUNTER → 2024-09-06 14:09 | Outpatient (BNVA) | payer OTHER, SELFPAY | PROVIDERS: PCP Physician Assistant; Visit Provider Physician Assistant | DX: I10 Essential (primary) hypertension (principal); F90.9 Attention-deficit hyperactivity disorder, unspecified type; J45.909 Unspecified asthma, uncomplicated; E66.9 Obesity, unspecified; E29.1 Testicular hypofunction; R73.01 Impaired fasting glucose | CPT/HCPCS: 96127 ==

== ENCOUNTER → 2024-11-03 08:44 | Outpatient (REF) | payer OTHER, SELFPAY ==
--- NOTE | 2024-11-03 08:47 | CA_ITS ---
Acquisition Time: 2024-11-03 09:34:49 Total Exercise Time: 00:09:23 Test Indications: ASTHMA Medications: SEE H&P Protocol: FRANCOIS Max HR: 150 BPM 85% of Pred: 176 BPM Max BP: 198/110 mmHG Max Work Load: 10.7 METS Exercise stress test with exercise 9 mins 23 sec sof Francois Protocol, achieving 85% MPHR, with reports of baseline headache and dizziness, baseline constant 3/10 mid chest burning pain that pt states could be heart burn, shifted to right with exercise, with SOB, with isolated PVCs, with baseline HTN at 150/110 that harvey to 194/110. Without any EKG changes meeting criteria for ischemia. In recovery, symptoms returned to baseline. BP improved to 148/96. Test reviewed with Dr. Christine. PS- hypertensive at baseline. Pt only on Losartan. States he never took the Doxazosin. Referred By: Joe Mendieta Electronically Signed By: Gualberto Escoto
--- NOTE | 2024-11-03 08:47 | CA_ITS ---
Transthoracic Echocardiogram Patient (Last, First, Middle): Bill Ham A Gender: Male Date of : 1980 Age: 44 Procedure Date: 11/03/2024 Procedure Type: Transthoracic Echocardiogram Location: OP Height: 175. cm Weight: 124.74 kg BSA: 2.36 m2 Heart Rate: 73 bpm BP: 180 / 120 mmHg Automation Qa Analyst: EVY Referring MD: Joe Mendieta PA-C Symptoms: I10 - Essential (primary) hypertension Study Quality: Fair ECG Rhythm: Sinus Conclusions: - The left ventricular systolic function is normal. The calculated ejection fraction is 59% by biplane method. - No obvious valvular pathology seen on this study. Findings Left Ventricle Normal left ventricular cavity size. There is mildly increased left ventricular wall thickness. The left ventricular systolic function is normal. The calculated ejection fraction is 59% by biplane method. There is no evidence of regional wall motion abnormalities. Diastolic function is normal for age. Right Ventricle Mildly increased right ventricular cavity size. There is normal right ventricular systolic function. Atria Both atria are normal in size. Aortic Valve There is a normal trileaflet aortic valve. There is no aortic valve stenosis. There is no aortic valve regurgitation. Mitral Valve The mitral valve appears normal. There is no mitral valve regurgitation. There is no mitral valve stenosis. Pulmonic Valve The pulmonic valve is likely normal. Tricuspid Valve There is trace tricuspid valve regurgitation. There is no evidence of pulmonary hypertension. Great Vessels The asc aorta is normal in size. Venous The inferior vena cava was not well visualized. The inferior vena cava is normal in size. Pericardium/Pleural There is no evidence of pericardial effusion. Prior Study Comparison No prior study available for comparison. Recommendations, Care & Conclusions No obvious valvular pathology seen on this study. Measurements 2D Linear Measurements IVSd: 1.21 0.6-0.9/0.6-1.0 cm LVIDd: 4.48 3.9-5.3/4.2-5.9 cm LVIDd Index: 1.90 2.4-3.2/2.2-3.1 cm/m2 LVIDs: 3.53 2.0-3.6 cm LVPWd: 1.21 0.7-1.1 cm LA Diam: 3.50 2.7-3.8/3.0-4.0 cm LAIDs Index: 1.48 1.5-2.3 cm/m2 LV Mass: 248.14 67-162/88-224 g LV Mass Index: 105.14 43-95/49-115 g/m2 LVOT Diam: 2.10 3.0+(-)1.3 cm 2D Systolic Function EF 4C: 56.60 >55% EF 2C: 63.90 >55% EF BiP: 58.60 >55% Mitral Valve MV Pk E: 0.75 MV PK A: 0.68 MV Decel Time: 205.00 E/A: 1.10 E'Lateral: 10.80 E'Medial: 6.74 E/E' Med: 11.20 E/E' Lat: 7.00 PHT: 60.00 MVA PHT: 3.67 Decel Mckinley: 3.67 Aortic Valve AoV Pk Kwame: 1.60 AoV Mn Kwame: 1.11 AoV VTI: 0.32 AoV Pk Grad: 10.00 Aov Mn Grad: 6.00 PASHA Cont.VTI: 2.25 LVOT LVOT Pk Kwame: 1.09 LVOT Mn Kwame: 0.71 LVOT VTI: 0.21 LVOT Pk Grad: 5.00 LVOT Mn Grad: 2.00 LVOT Diam: 2.10 LVOT Area: 3.46 Diastolic Function MV Pk E: 0.75 MV Pk A: 0.68 E/A: 1.10 E'Medial: 6.74 E/E' Med: 11.20 E' Laterial: 10.80 E/E' Lat: 7.00 Right Ventricle TAPSE (mm): 28.70 TVS' Kwame: 12.60 Great Vessels Aorta Sinus of Valsalva: 3.30 2.0-3.5 cm Ao Asc: 3.40 2.1-3.4 cm Ao Arch: 2.70 Pulmonary Valve PV Pk Kwame: 1.02 Peak PV Grad: 4.00 Updated in Other Vendor System with Status of Final Rubio Christine MD electronically signed on 11/04/2024 4:10:31 PM with status of Final
--- OUTSIDE RECORDS SUMMARY | 2024-11-03 08:55 | XMS_ITS | Patient Health Record ---
[facility] [address] Address [address] [place] [address] Care Team Providers Care Administration Specialist Name Role Phone CRISTINO KELLY Unavailable [phone] Allergies No Known Allergies Reason For Referral No Information Medications Medication SIG (Take, Route, Frequency, Duration) Notes Start Date End Date Status Lisinopril 40 MG 1 tablet Orally Once a day Active Advair Diskus 100-50 MCG/ACT 1 puff Inhalation Twice a day Active Montelukast Sodium 10 MG 1 tablet Orally Once a day Active Wegovy 1.7 MG/0.75ML 1.7 mg Subcutaneous weekly; Duration: 30 days Active Social History Tobacco Use: Social History Observation Description Date Details (start date - stop date) Never Smoker NA - NA Tobacco Use/Smoking Question Answer Notes Are you a nonsmoker 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 tob: denies drug: denies 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 alcohol: denies tob: denies drug: denies 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 alcohol: denies tob: denies drug: denies 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 alcohol: denies tob: denies drug: denies 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 alcohol: denies tob: denies drug: denies 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 alcohol: denies tob: denies drug: denies 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 alcohol: denies tob: denies drug: denies 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 alcohol: denies tob: denies drug: denies 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 alcohol: denies tob: denies drug: denies 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 alcohol: denies tob: denies drug: denies 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 alcohol: denies tob: denies drug: denies 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 alcohol: denies tob: denies drug: denies 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 alcohol: denies tob: denies drug: denies Problems Problem Type SNOMED Code ICD Code Onset Dates Problem Status W/U Status Risk Notes Problem Essential hypertension (85883445) Hypertension, unspecified type (I10) Active confirmed Problem Mild intermittent asthma (622081765) Intermittent asthma without complication, unspecified asthma severity (J45.20) Active confirmed Vital Signs Heart Rate 76 /min 02/08/2024 Blood pressure diastolic 88 mm Hg 02/08/2024 Oximetry 99 % 02/08/2024 Height 69 in 02/08/2024 Blood pressure systolic 142 mm Hg 02/08/2024 Weight 262.6 lbs 02/08/2024 BMI 38.78 kg/m2 02/08/2024 Encounters Encounter Location Date Provider Diagnosis [facility] [address] [place] [address] 12/22/2023 CRISTINO KELLY Other obesity E66.8 ; BMI 39.0-39.9,adult Z68.39 ; Intermittent asthma without complication, unspecified asthma severity J45.20 ; Hypertension, unspecified type I10 and Depression, unspecified depression type F32.A [facility] [address] [place] [address] 02/08/2024 CRISTINO KELLY Obesity (BMI 30-39.9 ) E66.9 ; BMI 38.0-38.9,adult Z68.38 ; Hypertension, unspecified type I10 ; Intermittent asthma without complication, unspecified asthma severity J45.20 and Depression, unspecified depression type F32.A [facility] [address] [place] [address] 12/23/2023 CRISTINO KELLY Assessments Encounter Date Diagnosis (ICD Code) Assessment Notes Treatment Notes Treatment Clinical Notes Section Notes 12/22/2023 Other obesity (ICD-10 - E66.8) Bill [...] insurance until 3 consecutive months due to [employer] [place]. Could consider compounded semaglutide. We will discuss [...] weight loss medications although cannot submit to [employer] [place] until at least 3 consecutive months. We [...] to the medication not being in health [place]'s formulary. 06/22/2023: Weight: 287.3 lbs, BMI: 42.42. [...] Dictation was accomplished with the use of GalaDo voice recognition software, prone to medical misidentifications [...] insurance until 3 consecutive months due to [employer]. Could consider compounded semaglutide. We will discuss [...] weight loss medications although cannot submit to [employer] until at least 3 consecutive months. We [...] secondary to the medication not being in [employer] [place]'s formulary. 06/22/2023: Weight: 287.3 lbs, BMI: 42.42. [...] Dictation was accomplished with the use of [employer] voice recognition software, prone to medical misidentifications [...] insurance until 3 consecutive months due to [employer]. Could consider compounded semaglutide. We will discuss [...] weight loss medications although cannot submit to [employer] until at least 3 consecutive months. We [...] secondary to the medication not being in [employer]'s formulary. 06/22/2023: Weight: 287.3 lbs, BMI: 42.42. [...] Dictation was accomplished with the use of [employer] voice recognition software, prone to medical misidentifications [...] insurance until 3 consecutive months due to [employer] [place]. Could consider compounded semaglutide. We will discuss [...] weight loss medications although cannot submit to [employer] [place] until at least 3 consecutive months. We [...] secondary to the medication not being in [employer] [place]'s formulary. 06/22/2023: Weight: 287.3 lbs, BMI: 42.42. [...] Dictation was accomplished with the use of [employer] voice recognition software, prone to medical misidentifications [...] insurance until 3 consecutive months due to [employer]. Could consider compounded semaglutide. We will discuss [...] weight loss medications although cannot submit to [employer] until at least 3 consecutive months. We [...] to the medication not being in [facility] [place]'s formulary. 06/22/2023: Weight: 287.3 lbs, BMI: 42.42. [...] Dictation was accomplished with the use of [employer] voice recognition software, prone to medical misidentifications [...] insurance until 3 consecutive months due to [facility]. Could consider compounded semaglutide. We will [...] weight loss medications although cannot submit to [facility] until at least 3 consecutive months. [...] to the medication not being in health [place]'s formulary. 06/22/2023: Weight: 287.3 lbs, BMI: 42.42. [...] Dictation was accomplished with the use of [employer] voice recognition software, prone to medical misidentifications [...] insurance until 3 consecutive months due to [employer]. Could consider compounded semaglutide. We will discuss [...] weight loss medications although cannot submit to [employer] until at least 3 consecutive months. We [...] secondary to the medication not being in [employer] [place]'s formulary. 06/22/2023: Weight: 287.3 lbs, BMI: 42.42. [...] Dictation was accomplished with the use of [employer] voice recognition software, prone to medical misidentifications [...] insurance until 3 consecutive months due to [employer] [place]. Could consider compounded semaglutide. We will discuss [...] weight loss medications although cannot submit to [employer] until at least 3 consecutive months. We [...] to the medication not being in [facility] [place]'s formulary. 06/22/2023: Weight: 287.3 lbs, BMI: 42.42. [...] Dictation was accomplished with the use of [employer] voice recognition software, prone to medical misidentifications [...] insurance until 3 consecutive months due to [facility]. Could consider compounded semaglutide. We will [...] weight loss medications although cannot submit to [employer] [place] until at least 3 consecutive months. We [...] to the medication not being in [facility] [place]'s formulary. 06/22/2023: Weight: 287.3 lbs, BMI: 42.42. [...] Dictation was accomplished with the use of [employer] voice recognition software, prone to medical misidentifications [...] insurance until 3 consecutive months due to [employer]. Could consider compounded semaglutide. We will discuss [...] weight loss medications although cannot submit to [employer] until at least 3 consecutive months. We [...] secondary to the medication not being in [employer] [place]'s formulary. 06/22/2023: Weight: 287.3 lbs, BMI: 42.42. [...] Dictation was accomplished with the use of [employer]ala[employer] voice recognition software, prone to medical misidentifications [...] Insured Coverage Start Date Coverage End Date [facility] [address] [place] [address] [phone] [id number] Bill Ham Self - patient is the insured Medications Administered Medication Instructions Date of Administration Dosage Notes Semaglutide 11/17/2022 sema 0.25mg Semaglutide 11/24/2022 lot# [id number] 0.25mg Semaglutide 12/01/2022 sema 0.25mg Semaglutide 12/08/2022 lot# [id number] 0.25mg Semaglutide 12/18/2022 0.5 mg sema .5mg Medical (General) History Medical History History ICD Code depression hypertension asthma sleep apnea on CPAP obesity
== END ==
LOC: HO.CARD 08:44
PROVIDERS: PCP Physician Assistant; Visit Provider Physician Assistant
DX: I10 Essential (primary) hypertension (principal)
CPT/HCPCS: 93017; 93306

== ENCOUNTER → 2024-11-03 08:47 | Outpatient (BNV) | payer OTHER, SELFPAY | PROVIDERS: PCP Physician Assistant | DX: I10 Essential (primary) hypertension (principal) | CPT/HCPCS: 93016; 93018; 93320; 93325; 93350 ==

== ENCOUNTER 2024-12-08 08:35 | Outpatient (AMB) | payer OTHER, SELFPAY ==
[2024-12-08 08:38] VITALS: BP 150/80; PULSE 66; TEMP 36.2; O2SAT 98; BMI 41.4
--- NOTE | 2024-12-08 08:38 | MHC.PC.OV ---
Vital Signs 12/08/24 08:38 Height 5 ft 9 in Weight 280 lb 8 oz BMI 41.4 BP 150/80 H Blood Pressure Location Lt brachial Position Sitting Pulse 66 Pulse Source Pulse Oximeter Temp 97.1 F Temp Source Temporal Artery Scan Pulse Oximetry (%) 98 Oxygen Delivery Method Room Air Intake Visit Reasons: f/u HTN Intake Note: Patient is here to follow up on HTN. Child Care Specialist Required: No Water Jet Operator: Not Required per policy Accompanied by: Self / Same As Patient Allergies levofloxacin (From LEVAQUIN) Allergy (Mild, Verified 12/08/24 08:47) HIVES egg Allergy (Unknown, Verified 12/08/24 08:47) Unknown seafood Allergy (Unknown, Verified 12/08/24 08:47) Unknown amlodipine Adverse Reaction (Intermediate, Verified 12/08/24 08:47) ineffective hydrochlorothiazide Adverse Reaction (Intermediate, Verified 12/08/24 08:47) orthostatic hypotension atomoxetine Adverse Reaction (Unknown, Verified 12/08/24 08:50) dreaming Medication List - Last Reconciled 12/08/24 by Joe Mendieta PA-C albuterol sulfate 90 mcg/actuation (Ventolin HFA) 2 puffs inhalation Q4-6H PRN 30 days albuterol sulfate 2.5 mg (3 mL) continuous nebulization Q4-6H PRN atomoxetine (Strattera) 80 mg PO DAILY 90 days doxazosin (Cardura) 4 mg PO DAILY 30 days fluticasone propion-salmeterol 250-50 mcg/dose (Advair Diskus) 1 inh inhalation BID 90 days fluticasone propionate 50 mcg/actuation 2 sprays intranasal DAILY PRN losartan 100 mg PO DAILY 90 days montelukast 10 mg PO DAILY Tobacco use date assessed: 12/08/24 Dental Screening Dental Screen Date: 06/13/24 HPI f/u HTN HPI Details Patient is a 43-year-old male here today for a follow-up visit. Patient has a past medical history is hypertension, asthma, obesity, hypogonadism been impaired glucose metabolism. Concern--> The patient reports musculoskeletal back pain that began two weeks ago, likely due to prolonged driving. The pain is described as a shooting pain from the back to the front, exacerbated by deep breaths and certain movements. The patient has tried Tylenol with limited relief and has visited a chiropractor without significant improvement. The patient describes a possible urinary tract infection with symptoms of pain below the waistline, urgency, and occasional burning during urination. These symptoms have persisted for about a week, and the patient has a history of flank pain but no confirmed kidney stones. .. ADD: Of note does have history of ADD and was on stimulant medication for ADD disorder though stopped taking this medication as he felt it became ineffective. He has been on Strattera 80 mg though reported side effects of the overactive dreams and has stopped the medication. .. Hypertension: Blood pressure elevated today in office. We have been adjusting his doxazosin now on 4 mg. He has seen a bit of a difference in reduction of his systolic blood pressure. Continues on losartan 100 mg. PLAN: Will increase his doxazosin dose to 8 mg for better blood pressure control [facility] Medical History Allergic rhinitis Morbid obesity Desensitization to allergy shot Fatty liver Anemia Anxiety Obstructive sleep apnea Asthma Surgical History History of vasectomy Family History Father Hypertension Hyperlipidemia Mother No problems noted. Maternal Grandmother Myocardial infarction Maternal Grandfather Testicular cancer Paternal Grandmother Pancreatic cancer Paternal Grandfather Colon cancer Paternal Aunt Colon cancer Brother Bipolar disorder Other Mental health disorder Social History Housing: House Alcohol intake: former Year quit: 2021 Patient Tobacco Use Status: Never used Tobacco Years Smoked: teenage stopped e-Cigarette/Vaping Use: Never Used Second Hand Smoke Exposure: No service: No Current occupational status: employed Current occupation: [employer] Cognitive needs: No Hearing needs: No Vision needs: No Questionnaire PHQ-9 Over the last 2 weeks, how often have you been bothered by any of the following problems? 1. Little interest or pleasure in doing things: not at all 2. Feeling down, depressed, or hopeless: not at all 3. Trouble falling or staying asleep, or sleeping too much: not at all 4. Feeling tired or having little energy: not at all 5. Poor appetite or overeating: not at all 6. Feeling bad about yourself - or that you are a failure or have let yourself or your family down: not at all 7. Trouble concentrating on things, such as reading the newspaper or watching television: not at all 8. Moving or speaking so slowly that other people could have noticed. Or the opposite - being so fidgety or restless that you have been moving around a lot more than usual: not at all 9. Thoughts that you would be better off or of hurting yourself in some way: not at all Total score: 0 Depression Screening Interpretation: Negative Depression Screening Done: Yes 78194 - PHQ-9 Billing: Yes Source: Developed by Drs. Miquel Regan, Gloria Castle, Lex Coello and colleagues, with an educational cheo from [employer]. Thrive Questionnaire Date Thrive assessed: 12/08/24 I am a: Patient What is your living situation today?: I have a steady place to live Within the past 12 months, did the food you bought not last and you didn't have the money to get more?: Never true Within the past 12 months, did you worry whether your food would run out before you got money to buy more?: Never true Do you have trouble paying for medicines?: No Do you have trouble getting transportation to medical appointments?: No Do you have trouble paying your heating and electricity bill?: No Do you have trouble taking care of your child, family member or friend?: No Do you have trouble with day-to-day activities such as bathing, preparing meals, shopping, managing finances, etc.?: No Are you currently unemployed and looking for a job?: No Are you interested in more education?: No Please select the resources that you would like help with: None Currently or been in a relationship where the following occur: No concerns reported THRIVE Score: 0 MO-7 AMB Questionnaire MO-7 Date MO - 7 assessed: 12/08/24 Feeling nervous, anxious, or on edge: 0 = Not at all Not being able to stop or control worryin = Not at all Worrying too much about different things: 0 = Not at all Trouble relaxin = Not at all Being so restless that it is hard to sit still: 0 = Not at all Becoming easily annoyed or irritable: 0 = Not at all Feeling afraid as if something awful might happen: 0 = Not at all Total OM-7 score (0-4 normal; 5-9 mild; 10-14 moderate; 15-21 severe): 0 Source: Developed by Drs. Miquel Regan, Gloria Castle, Lex Coello and colleagues, with an educational cheo from [employer]. MO-7 Assessment Billing MO-7 Assessment Tool: MO-7 Assessment 86823 Review of Systems Const Denies headache(s) Eyes Denies loss of vision ENT Denies vertigo, Denies dizziness, Denies headache(s) and Denies sore throat Card Denies chest pain, Denies leg edema and Denies lightheadedness Resp Denies cough, Denies hemoptysis and Denies wheezing GI Denies abdominal pain, Denies melena, Denies constipation, Denies diarrhea and Denies vomiting Denies dysuria, Denies urinary frequency and Denies urinary urgency Musc Denies arthralgias, Denies joint swelling, Denies numbness and Denies tingling Neuro Denies Abnormal speech present, Denies behavioral changes, Denies vertigo, Denies dizziness, Denies headache(s), Denies loss of vision, Denies memory loss, Denies numbness and Denies tingling Psych Denies anxiety, Denies behavioral changes, Denies depression, Denies memory loss and Denies panic attacks Christian/Lymph Denies easy bleeding and Denies easy bruising Aller/Immun Denies wheezing Physical exam (Primary Care) Vital Signs: Last Vital Signs Temp 97.1 F 12/08/24 08:38 Pulse 66 12/08/24 08:38 BP 150/80 H 12/08/24 08:38 Pulse Ox 98 12/08/24 08:38 Oxygen Delivery Method Room Air 12/08/24 08:38 BMI result Body Mass Index 41.4 BMI Assessment/Plan discussion: High BMI High, discussed plan: lifestyle, weight reduction, dietary and physical activity Tobacco/Smoking Status: Tobacco use Status Tobacco use date assessed 12/08/24 12/08/24 08:39 Patient Tobacco Use Status Never used Tobacco 12/08/24 08:39 e-Cigarette/Vaping Use Never Used 12/08/24 08:39 PHQ-9: PHQ-9 Score PHQ-9: Total score 0 12/08/24 08:39 Depression Screening Interpretation: Negative Thrive Assessment: Date of Thrive Assessment Date Thrive assessed 12/08/24 12/08/24 08:39 Currently or been in a relationship where the following occur: No concerns reported Const General: healthy appearing, no acute distress, alert and awake Nutritional Appearance: well nourished Orientation/consciousness: oriented to person, oriented to place and oriented to time HENMT Ears: TM's normal bilaterally General nose exam: Normal nasal mucous membranes and turbinates present Eyes Conjunctivae: conjunctivae normal Sclerae: sclerae normal Pupils: Equal, round and reactive pupils present Neck Neck: Yes no lymphadenopathy and Yes no JVD Thyroid: Thyroid normal Carotids: no bruits Resp Effort & Inspection: normal respiratory effort and not tachypneic Auscultation: no crackles, no rales, no rhonchi and no wheezes Cardio Rate: regular rate Rhythm: regular rhythm Heart sounds: no murmurs and normal S1 and S2 GI Palpation (GI): Soft to palpation, nontender, no hepatomegaly and no splenomegaly Auscultation: normal bowel sounds Male genitals images:  1. TENDERNESS TO DEEP PALPATION IN THE AREA OUTLINED Skin General skin exam: no rashes or lesions noted and dry skin Neuro General: oriented to person, oriented to place and oriented to time Cranial nerves: Yes Equal, round and reactive pupils present Speech: No Abnormal speech present Gait exam (Neuro): Normal gait present Motor exam (neuro): no tremor noted Extrem Right upper extremity: full ROM Left upper extremity: full ROM Right lower extremity: full ROM; no edema Left lower extremity: full ROM; no edema Psych Mental Status: mental status grossly normal Speech and movement: Normal speech and movement present Affect: normal affect Attitude: cooperative Thought process: Normal thought process present Coding Level of Care Code Est Pt Level 4 (85425) Diagnoses Primary hypertension I10 Hypertension type: primary hypertension Upper back pain M54.9 Pelvic pain in male R10.2 Class 3 obesity E66.813 Additional Codes PHQ-9 - 46152 - PHQ-9 Billing: Yes ([id number]) MO-7 Assessment Billing - MO-7 Assessment Tool: MO-7 Assessment 41012 ([id number]) Assessment & Plan Assessment & Plan (1) HTN (hypertension): Code(s): I10 - Essential (primary) hypertension Category: Medical Qualifiers: Hypertension type: primary hypertension Qualified Code(s): I10 - Essential (primary) hypertension Plan: Patient's blood pressure elevated today in office. We have transitioned to losartan 100 mg which seems to be effective.. We have seen some reduction in his blood pressure readings overall with the addition doxazosin. Will increase his doxazosin to 8 mg daily as his blood pressure still are ranging 140-150 systolic. Will continue to monitor blood pressure with goal blood pressures to remain below 140/90 (2) Upper back pain: Code(s): M54.9 - Dorsalgia, unspecified Category: Medical Plan: For musculoskeletal back pain, a muscle relaxer will be prescribed to alleviate symptoms, with advice to use it primarily at night due to potential drowsiness. The patient is also advised to use a heating pad and engage in gentle stretching exercises. (3) Pelvic pain in male: Code(s): R10.2 - Pelvic and perineal pain Category: Medical Plan: A urinalysis will be conducted to check for signs of infection, and imaging studies such as an ultrasound and x-ray will be ordered to rule out bladder stones. (4) Class 3 obesity: Code(s): E66.813 - Obesity, class 3 Category: Medical Plan: Patient does understand his BMI is over 40 and will continue working on being more physically active and adapting to better eating habits to reduce his weight. He has found success on losing weight with a very strict low carb diet. Orders: Orders UA CC w/rflx Micro + Cult Today R10.2 - Pelvic and perineal pain, R30.0 - Dysuria US bladder Today R10.2 - Pelvic and perineal pain XR KUB Today R10.2 - Pelvic and perineal pain Medications: New doxazosin (Cardura) 8 mg PO DAILY 30 tabs 3RF 30 days I10 - Essential (primary) hypertension, R10.2 - Pelvic and perineal pain cyclobenzaprine 10 mg PO BEDTIME 10 tabs 1RF 10 days M54.9 - Dorsalgia, unspecified Discontinued atomoxetine (Strattera) Discontinued Reason: Doctor's Order 80 mg PO DAILY 90 days 90 caps 1RF F90.0 - Attention-deficit hyperactivity disorder, predominantly inattentive type
--- OUTSIDE RECORDS SUMMARY | 2024-12-08 09:33 | XMS_ITS | Patient Health Record ---
Author Organization 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 alcohol: denies tob: denies drug: denies 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 alcohol: denies tob: denies drug: denies 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 alcohol: denies tob: denies drug: denies 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 alcohol: denies tob: denies drug: denies 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 alcohol: denies tob: denies drug: denies 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 alcohol: denies tob: denies drug: denies 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 alcohol: denies tob: denies drug: denies 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 alcohol: denies tob: denies drug: denies Problems Problem Type SNOMED Code ICD Code Onset Dates Problem Status W/U Status Risk Notes Problem Essential hypertension (79736691) Hypertension, unspecified type (I10) Active confirmed Problem Mild intermittent asthma (739425416) Intermittent asthma without complication, unspecified asthma severity (J45.20) Active confirmed Vital Signs Heart Rate 76 /min 02/08/2024 Blood pressure diastolic 88 mm Hg 02/08/2024 Oximetry 99 % 02/08/2024 Height 69 in 02/08/2024 Blood pressure systolic 142 mm Hg 02/08/2024 Weight 262.6 lbs 02/08/2024 BMI 38.78 kg/m2 02/08/2024 Encounters Encounter Location Date Provider Diagnosis [facility] [address] [place] [address] 12/22/2023 CRISTINO KELLY Other obesity E66.8 ; BMI 39.0-39.9,adult Z68.39 ; Intermittent asthma without complication, unspecified asthma severity J45.20 ; Hypertension, unspecified type I10 and Depression, unspecified depression type F32.A [facility] [address] [place] [address] 02/08/2024 CRISTINO KELLY Obesity (BMI 30-39.9 ) E66.9 ; BMI 38.0-38.9,adult Z68.38 ; Hypertension, unspecified type I10 ; Intermittent asthma without complication, unspecified asthma severity J45.20 and Depression, unspecified depression type F32.A [facility] [address] [place] [address] 12/23/2023 CRISTINO KELLY Assessments Encounter Date Diagnosis [...] insurance until 3 consecutive months due to [employer]. Could consider compounded semaglutide. We will discuss [...] weight loss medications although cannot submit to [employer] [place] until at least 3 consecutive months. We [...] to the medication not being in [facility] [place] formulary. 06/22/2023: Weight: 287.3 lbs, BMI: 42.42. [...] Dictation was accomplished with the use of [employer] voice recognition software, prone to medical misidentifications [...] insurance until 3 consecutive months due to [employer]. Could consider compounded semaglutide. We will discuss [...] weight loss medications although cannot submit to [employer] until at least 3 consecutive months. We [...] secondary to the medication not being in [employer] [place]'s formulary. 06/22/2023: Weight: 287.3 lbs, BMI: 42.42. [...] Dictation was accomplished with the use of [employer] ([employer] voice recognition software, prone to medical misidentifications [...] insurance until 3 consecutive months due to [employer]. Could consider compounded semaglutide. We will discuss [...] weight loss medications although cannot submit to [employer] until at least 3 consecutive months. We [...] secondary to the medication not being in [employer] formulary. 06/22/2023: Weight: 287.3 lbs, BMI: 42.42. [...] Dictation was accomplished with the use of [employer] ([employer] voice recognition software, prone to medical misidentifications [...] insurance until 3 consecutive months due to [employer] [place]. Could consider compounded semaglutide. We will discuss [...] weight loss medications although cannot submit to [employer] [place] until at least 3 consecutive months. We [...] secondary to the medication not being in [employer] [place]'s formulary. 06/22/2023: Weight: 287.3 lbs, BMI: 42.42. [...] Dictation was accomplished with the use of [employer] ([employer] voice recognition software, prone to medical misidentifications [...] insurance until 3 consecutive months due to [employer] [place]. Could consider compounded semaglutide. We will discuss [...] weight loss medications although cannot submit to [employer] [place] until at least 3 consecutive months. We [...] to the medication not being in [facility] [employer] formulary. 06/22/2023: Weight: 287.3 lbs, BMI: 42.42. [...] Dictation was accomplished with the use of [employer] ([employer] voice recognition software, prone to medical misidentifications [...] insurance until 3 consecutive months due to [facility]. Could consider compounded semaglutide. We will [...] weight loss medications although cannot submit to [facility] until at least 3 consecutive months. [...] to the medication not being in [facility] [place] formulary. 06/22/2023: Weight: 287.3 lbs, BMI: 42.42. [...] Dictation was accomplished with the use of [employer] ([employer] voice recognition software, prone to medical misidentifications [...] insurance until 3 consecutive months due to [employer]. Could consider compounded semaglutide. We will discuss [...] weight loss medications although cannot submit to [employer] until at least 3 consecutive months. We [...] secondary to the medication not being in [employer] [place] formulary. 06/22/2023: Weight: 287.3 lbs, BMI: 42.42. [...] Dictation was accomplished with the use of [employer] ([employer] voice recognition software, prone to medical misidentifications [...] insurance until 3 consecutive months due to [employer] [place]. Could consider compounded semaglutide. We will discuss [...] weight loss medications although cannot submit to [employer] until at least 3 consecutive months. We [...] to the medication not being in [facility] [employer] formulary. 06/22/2023: Weight: 287.3 lbs, BMI: 42.42. [...] Dictation was accomplished with the use of [employer] ([employer] voice recognition software, prone to medical misidentifications [...] insurance until 3 consecutive months due to [facility]. Could consider compounded semaglutide. We will [...] weight loss medications although cannot submit to [employer] [place] until at least 3 consecutive months. We [...] to the medication not being in [facility] [place] formulary. 06/22/2023: Weight: 287.3 lbs, BMI: 42.42. [...] Dictation was accomplished with the use of [employer] ([employer] voice recognition software, prone to medical misidentifications [...] insurance until 3 consecutive months due to [employer]. Could consider compounded semaglutide. We will discuss [...] weight loss medications although cannot submit to [employer] until at least 3 consecutive months. We [...] secondary to the medication not being in [employer] [place] formulary. 06/22/2023: Weight: 287.3 lbs, BMI: 42.42. [...] Dictation was accomplished with the use of [employer] ([employer] voice recognition software, prone to medical misidentifications [...] Insured Coverage Start Date Coverage End Date [facility] [address] [place] [address] [phone] [id number] Bill Ham Self - patient is the insured Medications Administered Medication Instructions Date of Administration Dosage Notes Semaglutide 11/17/2022 sema 0.25mg Semaglutide 11/24/2022 lot# [id number] 0.25mg Semaglutide 12/01/2022 sema 0.25mg Semaglutide 12/08/2022 lot# [id number] 0.25mg Semaglutide 12/18/2022 0.5 mg sema .5mg Medical (General) History Medical History History ICD Code depression hypertension asthma sleep apnea on CPAP obesity
== END 2024-12-08 09:08 | disposition home or self-care (01) ==
LOC: HO.HMCH 08:37
PROVIDERS: PCP Physician Assistant; Visit Provider Physician Assistant
DX: I10 Essential (primary) hypertension (principal); M54.9 Dorsalgia, unspecified; E66.813 Obesity, class 3; Z68.41 Body mass index [BMI] 40.0-44.9, adult; R10.2 Pelvic and perineal pain

== ENCOUNTER 2024-12-08 08:35 | Outpatient (REF) | payer OTHER, SELFPAY ==
[2024-12-08 10:11] LABS: Hematocrit 42.3 % (42.0-52.0); Hemoglobin 14.4 g/dl (14.0-18.0); Mean Corpuscular HGB Conc 34.0 g/dl (31.0-36.0); Mean Corpuscular Hemoglobin 28.6 pg (27.0-33.0); Mean Corpuscular Volume 84.1 fL (80.0-98.0); NRBC Abs Auto 0.000 X10*3/uL (0.0-0.012); NRBC Pct Auto 0.0 /100WBC (0.0-0.2); Platelet Count 207 X10*3/uL (160-400); Red Blood Count 5.03 X10*6/uL (4.60-5.80); White Blood Count 6.9 X10*3/uL (4.8-10.8)
[2024-12-08 10:53] LABS: Alanine Aminotransferase 49 U/L (0-40); Albumin Level 4.3 g/dL (3.5-5.0); Alkaline Phosphatase 58 U/L (39-117); Anion Gap 10 (12-20); Aspartate Amino Transferase 31 U/L (5-37); Blood Urea Nitrogen 12 mg/dL (9-16); Calcium 8.5 mg/dL (8.4-10.2); Carbon Dioxide 25 mmol/L (22-29); Chloride 109 mmol/L (96-108); Estimated Glomerular Filt Rate > 60; Potassium 4.0 mmol/L (3.3-5.1); Sodium 140 mmol/L (135-145); Total Protein 6.8 g/dL (6.5-8.0)
[2024-12-08 11:30] LABS: Appearance Urine Clear; Glucose Urine UA Negative (Negative); PH 6.5 (5.0-9.0); Specific Gravity - Urine 1.020 (1.005-1.025)
== END 2024-12-08 08:36 | disposition home or self-care (01) ==
LOC: HO.LAB 08:35
PROVIDERS: PCP Physician Assistant; Visit Provider Physician Assistant
DX: I10 Essential (primary) hypertension (principal); R10.2 Pelvic and perineal pain; M54.9 Dorsalgia, unspecified; E66.813 Obesity, class 3; M95.2 Other acquired deformity of head; R30.0 Dysuria; Z68.41 Body mass index [BMI] 40.0-44.9, adult
CPT/HCPCS: 36415; 80053; 81003; 85027; 96127